=== PATIENT | female | born 1950 | race Caucasian/White ===

== ENCOUNTER 2016-12-03 18:36 | Emergency (ER) | payer MEDICARE ==
[~2016-12-03] VITALS: Ht 160 cm; Wt 81.6 kg
[~2016-12-03 18:36] MED LIST: AMIO200T2 PO; ASPI325T70 PO; CARV12.52 PO; CEPH-264 PO; CEPH500C PO; CLOP75TA PO; DIGO125T PO; DOXY100T PO; ESCITALOPRAM OX10 MG PO; FAMO20TA5 PO; FLUT16SP2 NS; FLUT1DIS5 IH; FURO20TA3 PO; HYDR-2762 PO; HYDR-971 PO; IPRA14.7 IH; IPRA4AER IH; LISI-334 PO; LOSA100T6 PO; METH4TAB6 PO; ONDA4TAB10 SL; ONDA4TAB7 PO; OXYC-323 PO; OXYC-327 PO; POTASSIUM CHLO10 MEQ PO; PROC10TA57 PO; TAMS0.4C97 PO; TIOT18CA IH
[2016-12-03] MEDS ORDERED: IV NORMAL SALINE 1000ML BAG 1,000 ML IV SCH (19:19)
[2016-12-03] MEDS ORDERED: KETOROLAC TROMETHAMINE 30 MG/ML INJ. IV ONE (19:30)
[2016-12-03] MEDS ORDERED: ONDANSETRON PF 4 MG/2 ML VIAL. IV ONE (19:30)
[2016-12-03 19:32] LABS: BILIRUBIN,URINE NEGATIVE (NEG); GLUCOSE,URINE NEGATIVE (NEG); NITRITE,URINE NEGATIVE (NEG); PROTEIN,URINE >=300 mg/dL (NEG-TRACE); UROBILINOGEN,URINE 0.2 mg/dL (0.2 mg/dL)
--- NOTE | 2016-12-03 19:38 | ED.ADGEN ---
Past Medical History Past Medical History: A-Fib, CHF, COPD, CVA, Hypertension, Kidney Stone, Other Additional Past Medical Histor: Emphysema, Cardiomyopathy, PAD Past Surgical History: Appendectomy, Cholecystectomy, Hysterectomy, Tonsillectomy, Tubal ligation Additional Past Surgical Histo: hernia repair, arteriogram, 2 stents in right femoral, lithotripsy Alcohol Use: None Drug Use: None Adult General Chief Complaint Chief Complaint: ABDOMINAL PAIN HPI HPI Patient is a 66 year old woman, history of congestive heart failure, COPD, CVA , hypertension, recurrent renal calculi, who presents to the emergency department with complaint of recurrent right-sided abdominal and flank pain, nausea and persistent vomiting, and pain with urination. Patient had a recent cystoscopy performed with Dr. Manrique, and was treated for a urinary tract infection. She states she completed her course of antibiotics, uncertain which antibiotic she took, has been off antibiotics for more than a week. She presents complaining of nausea, chills, and recurrent pain consistent with her previous episode of renal calculi. She denies any injuries, any chest pain or shortness of breath, any sick contacts or exposures, any travel, any swelling extremities. States she has not taken any medications for pain or for nausea prior to come to the ED. Last bowel movement was today and was normal. Review of Systems Review of Systems Constitutional: Denies fever or chills. [] Eyes: Denies change in visual acuity. [] HENT: Denies nasal congestion or sore throat. [] Respiratory: Denies cough or shortness of breath. [] Cardiovascular: Denies chest pain or edema. [] GI: Right-sided abdominal and flank pain, associated with dysuria and nausea. : Denies dysuria. [] Musculoskeletal: Denies back pain or joint pain. [] Integument: Denies rash. [] Neurologic: Denies headache, focal weakness or sensory changes. [] Endocrine: Denies polyuria or polydipsia. [] Lymphatic: Denies swollen glands. [] Psychiatric: Denies depression or anxiety. [] Current Medications Current Medications Current Medications Medications (Trade) Dose Ordered Sig/Flash Start Time Stop Time Status Last Admin Dose Admin Ceftriaxone Sodium 50 ml @ 100 mls/hr 1X ONCE 12/03/16 20:30 12/03/16 20:59 DC 12/03/16 21:19 100 MLS/HR Fentanyl Citrate (Fentanyl 2ml Vial) 50 mcg PRN Q15MIN PRN 12/03/16 19:30 12/04/16 19:29 12/03/16 20:11 50 MCG Ketorolac Tromethamine (Toradol) 10 mg 1X ONCE 12/03/16 19:30 12/03/16 19:31 DC 12/03/16 20:12 10 MG Ondansetron HCl (Zofran) 4 mg 1X ONCE 12/03/16 19:30 12/03/16 19:31 DC 12/03/16 20:11 4 MG Sodium Chloride 1,000 ml @ 1,000 mls/hr Q1H 12/03/16 19:19 12/03/16 20:18 DC 12/03/16 20:10 1,000 MLS/HR Tamsulosin HCl (Flomax) 0.4 mg 1X ONCE 12/03/16 20:30 12/03/16 20:31 DC 12/03/16 21:19 0.4 MG Allergies Allergies Allergies Coded Allergies Type Severity Reaction Last Updated Verified Sulfa (Sulfonamide Antibiotics) Allergy Severe Anaphylaxis 11/15/15 Yes levofloxacin Adverse Reaction Intermediate Nausea 11/15/15 Yes morphine Adverse Reaction Intermediate 11/15/15 Yes Physical Exam Physical Exam Constitutional: Well developed, well nourished, no acute distress, non-toxic appearance. [] HENT: Normocephalic, atraumatic, bilateral external ears normal, oropharynx moist, no oral exudates, nose normal. [] Eyes: PERRLA, EOMI, conjunctiva normal, no discharge. [] Neck: Normal range of motion, no tenderness, supple, no stridor. [] Cardiovascular:Heart rate regular rhythm, no murmur, S1, S2, rubs or gallops. [] Lungs & Thorax: Bilateral breath sounds clear to auscultation, no wheezing, rhonchi, rales. [] Abdomen: Bowel sounds normal, soft, tenderness palpation in the right flank and right upper and lower abdomen. No rigidity, or rebound. Mild guarding. No masses , no pulsatile masses. [] Skin: Warm, dry, no erythema, no rash. [] Back: No tenderness, no CVA tenderness. [] Extremities: No tenderness, no cyanosis, no clubbing, ROM intact, no edema. [] Neurologic: Alert and oriented X 3, normal motor function, normal sensory function, no focal deficits noted. [] Psychologic: Affect normal, judgement normal, mood normal. [] Current Patient Data Vital Signs Vital Signs Date Time Temp Pulse Resp B/P (MAP) Pulse Ox O2 Delivery O2 Flow Rate FiO2 12/03/16 21:30 82 17 186/89 (121) 94 Room Air 12/03/16 18:53 98.1 98.1 Lab Values Laboratory Tests Test 12/03/16 18:44 12/03/16 20:15 Urine Color Yellow Urine Clarity Cloudy Urine pH 6.0 Urine Specific [place] 1.015 Urine Protein >=300 mg/dL (NEG-TRACE) Urine Glucose (UA) Negative mg/dL (NEG) Urine Ketones (Stick) Negative mg/dL (NEG) Urine Blood Small (NEG) Urine Nitrite Negative (NEG) Urine Bilirubin Negative (NEG) Urine Urobilinogen Dipstick 0.2 mg/dL (0.2 mg/dL) Urine Leukocyte Esterase Small (NEG) Urine RBC 1-2 /HPF (0-2) Urine WBC 1-4 /HPF (0-4) Urine Squamous Epithelial Cells Occ /LPF Urine Amorphous Sediment Present /HPF Urine Bacteria Few /HPF (0-FEW) Urine Mucus Mod /LPF White Blood Count 18.1 x10^3/uL (4.0-11.0) H Red Blood Count 5.99 x10^6/uL (3.50-5.40) H Hemoglobin 15.8 g/dL (12.0-15.5) H Hematocrit 48.7 % (36.0-47.0) H Mean Corpuscular Volume 81 fL (79-100) Mean Corpuscular Hemoglobin 26 pg (25-35) Mean Corpuscular Hemoglobin Concent 32 g/dL (31-37) Red Cell Distribution Width 15.7 % (11.5-14.5) H Platelet Count 275 x10^3/uL (140-400) Neutrophils (%) (Auto) 93 % (31-73) H Lymphocytes (%) (Auto) 4 % (24-48) L Monocytes (%) (Auto) 3 % (0-9) Eosinophils (%) (Auto) 0 % (0-3) Basophils (%) (Auto) 0 % (0-3) Neutrophils # (Auto) 16.8 x10^3uL (1.8-7.7) H Lymphocytes # (Auto) 0.7 x10^3/uL (1.0-4.8) L Monocytes # (Auto) 0.5 x10^3/uL (0.0-1.1) Eosinophils # (Auto) 0.0 x10^3/uL (0.0-0.7) Basophils # (Auto) 0.1 x10^3/uL (0.0-0.2) Segmented Neutrophils % 92 % (35-66) H Lymphocytes % 4 % (24-48) L Monocytes % 4 % (0-10) Toxic Granulation Slight Platelet Estimate Adequate (ADEQUATE) Sodium Level 139 mmol/L (136-145) Potassium Level 4.1 mmol/L (3.5-5.1) Chloride Level 101 mmol/L (98-107) Carbon Dioxide Level 27 mmol/L (21-32) Anion Gap 11 (6-14) Blood Urea Nitrogen 25 mg/dL (7-20) H Creatinine 1.4 mg/dL (0.6-1.0) H Estimated GFR (Cockcroft-Gault) 37.6 BUN/Creatinine Ratio 18 (6-20) Glucose Level 154 mg/dL (70-99) H Calcium Level 9.8 mg/dL (8.5-10.1) Total Bilirubin 0.5 mg/dL (0.2-1.0) Aspartate Amino Transferase (AST) 17 U/L (15-37) Alanine Aminotransferase (ALT) 23 U/L (14-59) Alkaline Phosphatase 157 U/L (46-116) H Total Protein 8.4 g/dL (6.4-8.2) H Albumin 3.6 g/dL (3.4-5.0) Albumin/Globulin Ratio 0.8 (1.0-1.7) L Lipase 136 U/L (73-393) Laboratory Tests 12/03/16 20:15 Laboratory Tests 12/03/16 20:15 Radiology/Procedures Radiology/Procedures [][facility] [address] [place] [address] IMAGING REPORT Signed PATIENT: NASIM APPIAH ACCOUNT: [id number] : 1950 LOCATION: ER AGE: 66 SEX: F EXAM STATUS: REG ER ORD. PHYSICIAN: HECTOR ACOSTA DO REASON: L flank/abd pain/urinary pain PROCEDURE: CT ABDOMEN PELVIS WO CONTRAST CT ABDOMEN PELVIS WO CONTRAST dated 12/03/2016 7:42 PM Indication: Pain, left flank pain dysuria, urinary pain Comparison: 11/17/2016 Technique: Contiguous axial imaging of the abdomen and pelvis performed without the administration of intravenous contrast. One or more of the following individualized dose reduction techniques were utilized for this examination: 1. Automated exposure control 2. Adjustment of the mA and/or kV according to patient size 3. Use of iterative reconstruction technique Findings: Again noted is a large stone or group of stones at the mid to distal right ureter that measure up to 12 mm maximum dimension. There is moderate to severe right hydronephrosis and proximal hydroureter, unchanged. Inflammatory stranding in the perinephric fat and periureteral fat. 3 calcific stones at the mid to lower pole right kidney measuring up to 5 mm maximum dimension previously noted large mid pole calculus on the right is no longer visualized and likely migrated to the mid/distal right ureter. Calcific stones at the mid and lower pole left kidney with small staghorn calculus at the lower pole measuring 1.7 cm in size, unchanged. No left ureteral stone or left-sided hydronephrosis. Urinary bladder is nondistended. No calcified bladder stone. There are several phleboliths in the pelvis. Solid abdominal viscera are not well evaluated in the absence of contrast material. No apparent attenuation abnormality of the liver or spleen. Pancreas, adrenal glands unremarkable. Unopacified GI tract is normal in caliber and contour. No focal bowel wall thickening. Scattered diverticula throughout the colon. No pericolic inflammatory stranding. There are 3 low-density exophytic lesions at the lower pole right kidney ranging from 24 Hounsfield units to 47 Hounsfield units. These are similar to prior study. There are also exophytic nodules at the lower pole left kidney and upper to mid pole left kidney, unchanged. Limited images of the lung bases are clear. Heart size mildly enlarged. No pleural or pericardial effusion. Bone windows show no acute findings. Multilevel spondylosis. IMPRESSION: 1. New 1.2 cm calcific stone at the mid to distal right ureter with moderate obstructive uropathy. This appears to have migrated from the right kidney mid pole compared to the prior exam. The calculus is lodged in a similar position compared to the prior study. 2. Bilateral nephrolithiasis. No left ureteral stone or left hydronephrosis. 3. Exophytic nodules at both kidneys are indeterminate in etiology but stable from prior exam. Considerations would include hyperdense cysts or neoplasm. Continued follow-up imaging recommended to ensure stability. 4. Diverticulosis. Electronically signed by: Que Ramey MD (12/03/2016 8:10 PM) DICTATED and SIGNED BY: QUE RAMEY MD DATE: 12/03/161999 CC: HECTOR ACOSTA DO; DARRICK ZHOU MD ~ Course & Med Decision Making Course & Med Decision Making Pertinent Labs and Imaging studies reviewed. (See chart for details) Repeat CT of abdomen and pelvis obtained after discussion with patient bedside, reveals recurrent, new 1.2 cm renal calculi located in the mid right ureter, causing moderate obstructive uropathy, patient also noted to have a creatinine at 1.4, elevated from previous 0.9 on 23 November, evidence of dehydration with a blood urea nitrogen of 25, leukocytosis of 18.1, with bacteria noted in the patient's urine. Nitrate negative. Patient initiated on ceftriaxone in the ED, previous urine cultures did not display any significant growth. Is receiving IV fluids, antiemetics, pain medication, is resting more comfortably on reevaluation. Oral Flomax given and tolerated without issue. I discussed findings with patient and at bedside, as we currently do not have urology coverage at [facility], patient is agreeable for transfer to [facility], as her primary care provider Dr. Zhou has admitting privileges at this hospital. I did speak to Dr. Zhou, and he accepted the patient to his service at [facility]. I also spoke with Dr. Crockett of urology at [facility], who stated he'll be able to evaluate the patient and continue management at [facility]. Patient has received antibiotics, and has fluids and analgesia with antiemetics infusing as needed. Transfer paperwork completed. Patient's CT images were clouded to [facility]. Awaiting EMS transport, patient remained stable on the monitor. Dragon Disclaimer Dragon Disclaimer This electronic medical record was generated, in whole or in part, using a voice recognition dictation system. Departure Impression: Primary Impression: Hydronephrosis Additional Impressions: UTI (urinary tract infection) Stone, kidney Disposition: 05 TRANSFER OTHER Condition: IMPROVED Problem Qualifiers HECTOR ACOSTA DO Dec 03, 2016 19:38
[2016-12-03 19:43] LABS: BACTERIA,URINE FEW /HPF (0-FEW); SQUAMOUS EPITHELIAL CELL,UR OCC /LPF
[2016-12-03] MEDS: fentaNYL PF VIAL 100 MCG/2 ML VIAL IV PRN ×2 (20:11→21:55)
--- NOTE | 2016-12-03 20:13 | RAD ---
CT ABDOMEN PELVIS WO CONTRAST dated 12/03/2016 7:42 PM Indication: Pain, left flank pain dysuria, urinary pain Comparison: 11/17/2016 Technique: Contiguous axial imaging of the abdomen and pelvis performed without the administration of intravenous contrast. One or more of the following individualized dose reduction techniques were utilized for this examination: 1. Automated exposure control 2. Adjustment of the mA and/or kV according to patient size 3. Use of iterative reconstruction technique Findings: Again noted is a large stone or group of stones at the mid to distal right ureter that measure up to 12 mm maximum dimension. There is moderate to severe right hydronephrosis and proximal hydroureter, unchanged. Inflammatory stranding in the perinephric fat and periureteral fat. 3 calcific stones at the mid to lower pole right kidney measuring up to 5 mm maximum dimension previously noted large mid pole calculus on the right is no longer visualized and likely migrated to the mid/distal right ureter. Calcific stones at the mid and lower pole left kidney with small staghorn calculus at the lower pole measuring 1.7 cm in size, unchanged. No left ureteral stone or left-sided hydronephrosis. Urinary bladder is nondistended. No calcified bladder stone. There are several phleboliths in the pelvis. Solid abdominal viscera are not well evaluated in the absence of contrast material. No apparent attenuation abnormality of the liver or spleen. Pancreas, adrenal glands unremarkable. Unopacified GI tract is normal in caliber and contour. No focal bowel wall thickening. Scattered diverticula throughout the colon. No pericolic inflammatory stranding. There are 3 low-density exophytic lesions at the lower pole right kidney ranging from 24 Hounsfield units to 47 Hounsfield units. These are similar to prior study. There are also exophytic nodules at the lower pole left kidney and upper to mid pole left kidney, unchanged. Limited images of the lung bases are clear. Heart size mildly enlarged. No pleural or pericardial effusion. Bone windows show no acute findings. Multilevel spondylosis. IMPRESSION: 1. New 1.2 cm calcific stone at the mid to distal right ureter with moderate obstructive uropathy. This appears to have migrated from the right kidney mid pole compared to the prior exam. The calculus is lodged in a similar position compared to the prior study. 2. Bilateral nephrolithiasis. No left ureteral stone or left hydronephrosis. 3. Exophytic nodules at both kidneys are indeterminate in etiology but stable from prior exam. Considerations would include hyperdense cysts or neoplasm. Continued follow-up imaging recommended to ensure stability. 4. Diverticulosis. Electronically signed by: Que Ramey MD (12/03/2016 8:10 PM)
[2016-12-03 20:22] LABS: BASO # 0.1 x10^3/uL (0.0-0.2); BASO % 0 % (0-3); EOS % 0 % (0-3); HEMATOCRIT 48.7 % (36.0-47.0); HEMOGLOBIN 15.8 g/dL (12.0-15.5); LYMPH # 0.7 x10^3/uL (1.0-4.8); LYMPH % 4 % (24-48); MEAN CORPUSCULAR HEMOGLOBIN 26 pg (25-35); MEAN CORPUSCULAR HGB CONC 32 g/dL (31-37); MEAN CORPUSCULAR VOLUME 81 fL (79-100); MONO % 3 % (0-9); NEUT % 93 % (31-73); PLATELET COUNT 275 x10^3/uL (140-400); RED BLOOD COUNT 5.99 x10^6/uL (3.50-5.40); RED CELL DISTRIBUTION WIDTH 15.7 % (11.5-14.5); WHITE BLOOD COUNT 18.1 x10^3/uL (4.0-11.0)
[2016-12-03] MEDS ORDERED: TAMSULOSIN 0.4 MG CAP.ER.24H. PO ONE (20:30)
[2016-12-03 20:38] LABS: CALCIUM 9.8 mg/dL (8.5-10.1); CREATININE 1.4 mg/dL (0.6-1.0); GFR 37.6; POTASSIUM 4.1 mmol/L (3.5-5.1)
[2016-12-03 20:44] LABS: ALBUMIN 3.6 g/dL (3.4-5.0); ALBUMIN/GLOBULIN RATIO 0.8 (1.0-1.7); TOTAL BILIRUBIN 0.5 mg/dL (0.2-1.0); TOTAL PROTEIN 8.4 g/dL (6.4-8.2)
[2016-12-03 20:54] LABS: PLT ESTIMATE ADEQUATE (ADEQUATE); TOXIC GRANULATION SLIGHT
--- NOTE | 2016-12-03 20:58 | ACF ---
Admission Forms Criteria RENAL COLIC AND KIDNEY STONES Clinical Indications for Admission to Inpatient Care ( Place 'X' for any and all applicable criteria): Admission is indicated for ANY ONE of the following (1)(2)(3)(4): [X ]I. Inpatient admission required rather than observation care (Also use Renal Colic and Kidney Stones: Observation Care Criteria as appropriate) because of ANY ONE of the following: [ X]a) Severe pain requiring acute inpatient management [ ]b) Urinary tract infection identified [ ]c) Vomiting that is severe or persistent [ ]d) IV fluid required rather than oral rehydration to replace significant ongoing (eg, for greater than 24 hours) losses (greater than 200 mL/hr or 3 L/m2 per day) [ ]e) Percutaneous or open drainage (eg, abscess, biliary tract) procedures [ ]f) Other condition, treatment or monitoring requiring inpatient admission [ ]II. Impending acute renal failure [ ]III. Bilateral obstruction [ ]IV. Single kidney with obstruction [ ]V. Transplanted kidney with obstruction [ ]. Possible open surgical procedure needed (eg, pyonephrosis, stone removal not amendable to other means) [ ]VII. Hemodynamic instability Extended stay beyond goal length of stay may be needed for(2)(3)(31): [ ]a) Failed initial stone removal (32) [ ]b) Pyonephrosis [ ]c) Obstructive uropathy with urinary tract infection [ ]d) Procedure complications [ ]e) Comorbidities (22) The original [employer] content created by [employer] has been revised. The portions of the content which have been revised are identified through the use of italic text or in bold, and [facility] has neither reviewed nor approved the modified material. All other unmodified content is copyright [employer]. Please see references footnoted in the original [facility] edition 2016 CAIT WAN Dec 03, 2016 20:58
[2016-12-03 23:30] VITALS: BP 170/85
== END 2016-12-03 23:50 | disposition short-term general hospital (02) ==
LOC: ER 18:36
DX: N20.0 Calculus of kidney (principal); N13.30 Unspecified hydronephrosis; N39.0 Urinary tract infection, site not specified; I48.91 Unspecified atrial fibrillation; I11.0 Hypertensive heart disease with heart failure; I50.9 Heart failure, unspecified; J44.9 Chronic obstructive pulmonary disease, unspecified; Z86.73 Personal history of transient ischemic attack (TIA), and cerebral infarction without residual deficits; Z90.49 Acquired absence of other specified parts of digestive tract; Z90.710 Acquired absence of both cervix and uterus; Z98.51 Tubal ligation status; Z88.2 Allergy status to sulfonamides; Z88.5 Allergy status to narcotic agent; Z88.1 Allergy status to other antibiotic agents
CPT/HCPCS: 36415; 74176; 80053; 81001; 83690; 85007; 85027; 87086; 96361; 96365; 96375; 96376; 99285; J0690; J1885; J2405; J3010; J7030

== ENCOUNTER 2017-05-15 12:05 | Emergency (ER) | payer MEDICARE ==
[~2017-05-15] VITALS: Ht 160 cm; Wt 72.6 kg
[2017-05-15] MEDS ORDERED: IV NORMAL SALINE 1000ML BAG 1,000 ML IV SCH (12:59)
--- NOTE | 2017-05-15 13:31 | PHYS DOC ---
Past Medical History Past Medical History: A-Fib, CHF, COPD, CVA, Hypertension, Kidney Stone, Other Additional Past Medical Histor: Emphysema, Cardiomyopathy, PAD Past Surgical History: Appendectomy, Cholecystectomy, Hysterectomy, Tonsillectomy, Tubal ligation Additional Past Surgical Histo: hernia repair, arteriogram, 2 stents in right femoral, lithotripsy Alcohol Use: None Drug Use: None Adult General Chief Complaint Chief Complaint: ABDOMINAL PAIN HPI HPI Patient is a 66 year old female who presents with was he vomiting a right lower quadrant pain. All started last night. She also complains about headache in the frontal aspect of her head with tenderness over her maxillary and frontal sinuses. She denies any neck pain, denies any fevers or chills. She states she's had a hysterectomy and a appendectomy in the past. Review of Systems Review of Systems Constitutional: Denies fever or chills [] Eyes: Denies change in visual acuity, redness, or eye pain [] HENT: Denies nasal congestion or sore throat [] Respiratory: Denies cough or shortness of breath [] Cardiovascular: No additional information not addressed in HPI [] GI: Positive for abdominal pain, nausea,Denies vomiting, bloody stools or diarrhea [] : Denies dysuria or hematuria [] Musculoskeletal: Denies back pain or joint pain [] Integument: Denies rash or skin lesions [] Neurologic: Denies headache, focal weakness or sensory changes [] Endocrine: Denies polyuria or polydipsia [] All other systems were reviewed and found to be within normal limits, except as documented in this note. Current Medications Current Medications Current Medications Medications (Trade) Dose Ordered Sig/Flash Start Time Stop Time Status Last Admin Dose Admin Fentanyl Citrate (Fentanyl 2ml Vial) 50 mcg PRN Q15MIN PRN 05/15/17 13:45 05/16/17 13:44 05/15/17 14:15 50 MCG Ondansetron HCl (Zofran) 4 mg STK-MED ONCE 05/15/17 14:10 05/15/17 14:11 DC Sodium Chloride 1,000 ml @ 1,000 mls/hr 1X ONCE 05/15/17 16:30 05/15/17 17:29 Tamsulosin HCl (Flomax) 0.4 mg 1X ONCE 05/15/17 16:30 05/15/17 16:41 DC Allergies Allergies Allergies Coded Allergies Type Severity Reaction Last Updated Verified Sulfa (Sulfonamide Antibiotics) Allergy Severe Anaphylaxis 11/15/15 Yes levofloxacin Adverse Reaction Intermediate Nausea 11/15/15 Yes morphine Adverse Reaction Intermediate 11/15/15 Yes Physical Exam Physical Exam Constitutional: Well developed, well nourished, no acute distress, non-toxic appearance. [] HENT: Normocephalic, atraumatic, bilateral external ears normal, oropharynx moist, no oral exudates, nose normal. [] Eyes: PERRLA, EOMI, conjunctiva normal, no discharge. [] Neck: Normal range of motion, no tenderness, supple, no stridor. [] Cardiovascular:Heart rate regular rhythm, no murmur [] Lungs & Thorax: Bilateral breath sounds clear to auscultation [] Abdomen: Bowel sounds hypoactive, soft, tender to palpation the right lower quadrant no rebound or guarding, no masses, no pulsatile masses. [] Skin: Warm, dry, no erythema, no rash. [] Back: No tenderness, no CVA tenderness. [] Extremities: No tenderness, no cyanosis, no clubbing, ROM intact, no edema. [] Neurologic: Alert and oriented X 3, normal motor function, normal sensory function, no focal deficits noted. [] Psychologic: Affect normal, judgement normal, mood normal. [] Current Patient Data Vital Signs Vital Signs Date Time Temp Pulse Resp B/P (MAP) Pulse Ox O2 Delivery O2 Flow Rate FiO2 05/15/17 15:06 20 94 Room Air 05/15/17 12:44 98.3 93 168/91 (116) 98.3 Lab Values Laboratory Tests Test 05/15/17 12:20 05/15/17 13:55 Urine Collection Type Unknown Urine Color Yellow Urine Clarity Cloudy Urine pH 6.0 Urine Specific [place] 1.015 Urine Protein 100 mg/dL (NEG-TRACE) Urine Glucose (UA) Negative mg/dL (NEG) Urine Ketones (Stick) Negative mg/dL (NEG) Urine Blood Large (NEG) Urine Nitrite Negative (NEG) Urine Bilirubin Negative (NEG) Urine Urobilinogen Dipstick 0.2 mg/dL (0.2 mg/dL) Urine Leukocyte Esterase Small (NEG) Urine RBC >40 /HPF (0-2) Urine WBC 5-10 /HPF (0-4) Urine Squamous Epithelial Cells Many /LPF Urine Bacteria Moderate /HPF (0-FEW) Urine Hyaline Casts Few /HPF Urine Mucus Marked /LPF Urine Opiates Screen Neg (NEG) Urine Methadone Screen Neg (NEG) Urine Barbiturates Neg (NEG) Urine Phencyclidine Screen Neg (NEG) Urine Amphetamine/Methamphetamine Neg (NEG) Urine Benzodiazepines Screen Neg (NEG) Urine Cocaine Screen Neg (NEG) Urine Cannabinoids Screen Neg (NEG) Urine Ethyl Alcohol Neg (NEG) White Blood Count 15.4 x10^3/uL (4.0-11.0) H Red Blood Count 6.30 x10^6/uL (3.50-5.40) H Hemoglobin 16.5 g/dL (12.0-15.5) H Hematocrit 50.7 % (36.0-47.0) H Mean Corpuscular Volume 81 fL (79-100) Mean Corpuscular Hemoglobin 26 pg (25-35) Mean Corpuscular Hemoglobin Concent 33 g/dL (31-37) Red Cell Distribution Width 16.4 % (11.5-14.5) H Platelet Count 246 x10^3/uL (140-400) Neutrophils (%) (Auto) 82 % (31-73) H Lymphocytes (%) (Auto) 11 % (24-48) L Monocytes (%) (Auto) 7 % (0-9) Eosinophils (%) (Auto) 0 % (0-3) Basophils (%) (Auto) 1 % (0-3) Neutrophils # (Auto) 12.6 x10^3uL (1.8-7.7) H Lymphocytes # (Auto) 1.7 x10^3/uL (1.0-4.8) Monocytes # (Auto) 1.0 x10^3/uL (0.0-1.1) Eosinophils # (Auto) 0.0 x10^3/uL (0.0-0.7) Basophils # (Auto) 0.1 x10^3/uL (0.0-0.2) Segmented Neutrophils % 81 % (35-66) H Band Neutrophils % 3 % (0-9) Lymphocytes % 4 % (24-48) L Atypical Lymphocytes % (Manual) 5 % (0-0) H Monocytes % 5 % (0-10) Eosinophils % 1 % (0-5) Basophils % 1 % (0-3) Platelet Estimate Adequate (ADEQUATE) Giant Platelets Few Anisocytosis Slight Prothrombin Time 12.4 SEC (11.7-14.0) Prothrombin Time INR 1.0 (0.8-1.1) Sodium Level 139 mmol/L (136-145) Potassium Level 4.4 mmol/L (3.5-5.1) Chloride Level 101 mmol/L (98-107) Carbon Dioxide Level 30 mmol/L (21-32) Anion Gap 8 (6-14) Blood Urea Nitrogen 27 mg/dL (7-20) H Creatinine 1.6 mg/dL (0.6-1.0) H Estimated GFR (Cockcroft-Gault) 32.2 Glucose Level 109 mg/dL (70-99) H Calcium Level 9.8 mg/dL (8.5-10.1) Magnesium Level 2.1 mg/dL (1.8-2.4) Total Bilirubin 0.6 mg/dL (0.2-1.0) Direct Bilirubin 0.1 mg/dL (0.0-0.2) Aspartate Amino Transferase (AST) 21 U/L (15-37) Alanine Aminotransferase (ALT) 22 U/L (14-59) Alkaline Phosphatase 131 U/L (46-116) H Creatine Kinase 36 U/L (26-192) Creatine Kinase MB (Mass) 0.9 ng/mL (0.0-3.6) Creatine Kinase MB Relative Index % (0-4) Troponin I Quantitative 0.037 ng/mL (0.000-0.055) PY-Mnp-I-Type Natriuretic Peptide 47571 pg/mL (0-124) H Total Protein 8.0 g/dL (6.4-8.2) Albumin 3.8 g/dL (3.4-5.0) Lipase 87 U/L (73-393) Thyroid Stimulating Hormone (TSH) 0.284 uIU/mL (0.358-3.74) L Laboratory Tests 05/15/17 13:55 Laboratory Tests 05/15/17 13:55 EKG EKG [] Radiology/Procedures Radiology/Procedures CT scan shows: #1 bilateral intrarenal calculi #26 mm obstructing calculus in the distal right ureter #3 bilateral renal masses most compatible with cysts #4 unchanged small bilateral adrenal masses compatible with myelolipomas. #5 colonic diverticulosis Impressions: Right sided ureter stone Elevated creatinine COPD Congestive heart failure Hypertension History of a CVA A. fib Course & Med Decision Making Course & Med Decision Making Pertinent Labs and Imaging studies reviewed. (See chart for details) CT scans confirm the 6 mm obstructing stone in the distal right ureter. She is receiving IV pain meds to control her pain. Her creatinine is elevated at 1.6 were baselines 0.9. She received a liter fluids. Her second liters going to 125 an hour. She received 0.4 mg Flomax is being transferred to [facility] in stable condition at this time. Dr. Guzman has accepted her for admission with her hospitalist team. Dragon Disclaimer Dragon Disclaimer This electronic medical record was generated, in whole or in part, using a voice recognition dictation system. Departure Departure Impression: Primary Impression: Nephrolithiasis Disposition: 02 TRANSFER [facility] LICENSE OF [facility] Condition: STABLE Referrals: DARRICK PINTO MD (PCP) SUZANNE AYALA MD May 15, 2017 13:31
[2017-05-15 13:34] LABS: BARBITURATES NEG (NEG); BENZODIAZEPINES NEG (NEG); CANNABINOIDS NEG (NEG); COCAINE NEG (NEG); METHADONE NEG (NEG); OPIATES NEG (NEG); PHENCYCLIDINE NEG (NEG)
[2017-05-15] MEDS ORDERED: ONDANSETRON PF 4 MG/2 ML VIAL. ONE (14:10)
[2017-05-15] MEDS: fentaNYL PF VIAL 100 MCG/2 ML VIAL IV PRN ×2 (14:15→17:03)
[2017-05-15] MEDS ORDERED: ONDANSETRON PF 4 MG/2 ML VIAL. IV ONE (14:15)
[2017-05-15 14:16] LABS: BASO # 0.1 x10^3/uL (0.0-0.2); BASO % 1 % (0-3); EOS % 0 % (0-3); HEMATOCRIT 50.7 % (36.0-47.0); HEMOGLOBIN 16.5 g/dL (12.0-15.5); LYMPH # 1.7 x10^3/uL (1.0-4.8); LYMPH % 11 % (24-48); MEAN CORPUSCULAR HEMOGLOBIN 26 pg (25-35); MEAN CORPUSCULAR HGB CONC 33 g/dL (31-37); MEAN CORPUSCULAR VOLUME 81 fL (79-100); MONO % 7 % (0-9); NEUT % 82 % (31-73); PLATELET COUNT 246 x10^3/uL (140-400); RED CELL DISTRIBUTION WIDTH 16.4 % (11.5-14.5); WHITE BLOOD COUNT 15.4 x10^3/uL (4.0-11.0)
[2017-05-15 14:19] LABS: CALCIUM 9.8 mg/dL (8.5-10.1); CREATININE 1.6 mg/dL (0.6-1.0); GFR 32.2; POTASSIUM 4.4 mmol/L (3.5-5.1)
[2017-05-15 14:20] LABS: PROTHROMBIN TIME PATIENT 12.4 SEC (11.7-14.0)
[2017-05-15 14:25] LABS: ALBUMIN 3.8 g/dL (3.4-5.0); DIRECT BILIRUBIN 0.1 mg/dL (0.0-0.2); MAGNESIUM 2.1 mg/dL (1.8-2.4); TOTAL BILIRUBIN 0.6 mg/dL (0.2-1.0)
[2017-05-15 14:35] LABS: CKMB MASS 0.9 ng/mL (0.0-3.6); CREATINE KINASE 36 U/L (26-192)
[2017-05-15 15:24] LABS: % BASOS 1 % (0-3); % EOS 1 % (0-5); ANISOCYTOSIS SLIGHT; PLT ESTIMATE ADEQUATE (ADEQUATE)
--- NOTE | 2017-05-15 15:46 | EKG ---
[facility] [address] [place] [address] Test Date: 2017-05-15 Test Time: 13:58:46 Pat Name: NASIM APPIAH Department: Room: Gender: F Desktop Specialist: : [id number] Requested By: SUZANNE AYALA Order Number: [id number] Reading MD: Juancho Velasco Measurements Intervals [place] Rate: 89 P: 4 VT: 192 QRS: -39 QRSD: 110 T: 106 QT: 386 QTc: 471 Interpretive Statements SINUS RHYTHM ATRIAL PREMATURE COMPLEX(ES) ABNORMAL LEFT AXIS DEVIATION LEFT ANTERIOR FASCICULAR BLOCK ST & T ABNORMALITY, CONSIDER HIGH LATERAL ISCHEMIA OR LEFT VENTRICULAR STRAIN ABNORMAL ECG Electronically Signed On 05-20-2017 16:44:45 COLORED LEATHER SETTER by Juancho Velasco
[2017-05-15 15:47] LABS: BILIRUBIN,URINE NEGATIVE (NEG); GLUCOSE,URINE NEGATIVE (NEG); NITRITE,URINE NEGATIVE (NEG); PROTEIN,URINE 100 mg/dL (NEG-TRACE); UROBILINOGEN,URINE 0.2 mg/dL (0.2 mg/dL)
--- NOTE | 2017-05-15 15:48 | RAD ---
CT of the abdomen and pelvis without contrast, 05/15/2017: History: Abdominal pain and vomiting Noncontrast scans were obtained as requested. There are multiple bilateral intrarenal calculi. There are several bilateral renal cysts. The left renal collecting system and left ureter are not dilated. There is dilatation of the right renal collecting system and right ureter. This appears to be due to a 6 mm distal right ureteral calculus as seen on coronal image 37 of series #4 and axial image 74 series #2. This calculus was not present on the previous study of 12/03/2016. At that time there was a larger calculus present more superiorly in the right ureter. There is mild streaky right perinephric edema. The urinary bladder bladder is collapsed and poorly defined. The unopacified liver is unremarkable. The gallbladder appears to be surgically absent. No pancreatic abnormality is seen. The spleen is of normal size. There are unchanged small nodules in both adrenal glands demonstrating fatty components. The findings suggest adrenal myelolipomas. Moderate aortoiliac calcific plaquing is present without evidence of aneurysm. No abdominal or pelvic adenopathy is seen. The uterus is surgically absent. There are multiple colonic diverticula. No paracolonic inflammatory process is seen. The appendix is surgically absent. The bowel loops are not dilated. No free air or free fluid is evident in the abdomen or pelvis. IMPRESSION: 1. Bilateral intrarenal calculi. 2. 6 mm obstructing calculus in the distal right ureter. 3. Bilateral renal masses most compatible with cysts. 4. Unchanged small bilateral adrenal masses compatible with myelolipomas. 5. Colonic diverticulosis. PQRS Compliance Statement: One or more of the following individualized dose reduction techniques were utilized for this examination: 1. Automated exposure control 2. Adjustment of the mA and/or kV according to patient size 3. Use of iterative reconstruction technique
[2017-05-15 15:58] LABS: BACTERIA,URINE MODERATE /HPF (0-FEW); RBC,URINE >40 /HPF (0-2)
[2017-05-15 15:59] LABS: SQUAMOUS EPITHELIAL CELL,UR MANY /LPF
[2017-05-15] MEDS ORDERED: TAMSULOSIN 0.4 MG CAP.ER.24H. PO ONE (16:30)
[2017-05-15] MEDS ORDERED: IV NORMAL SALINE 1000ML BAG 1,000 ML IV ONE (16:30)
[2017-05-15 17:00] VITALS: BP 159/79
== END 2017-05-15 18:13 | disposition short-term general hospital (02) ==
LOC: ER 12:05
DX: N20.2 Calculus of kidney with calculus of ureter (principal); R51 Headache; I48.91 Unspecified atrial fibrillation; I11.0 Hypertensive heart disease with heart failure; I50.9 Heart failure, unspecified; J43.9 Emphysema, unspecified; Z90.710 Acquired absence of both cervix and uterus; Z88.2 Allergy status to sulfonamides; Z86.73 Personal history of transient ischemic attack (TIA), and cerebral infarction without residual deficits; Z90.49 Acquired absence of other specified parts of digestive tract; Z87.442 Personal history of urinary calculi; Z88.1 Allergy status to other antibiotic agents; Z88.5 Allergy status to narcotic agent
CPT/HCPCS: 36415; 74176; 80048; 80076; 80307; 81001; 82553; 83690; 83735; 83880; 84443; 84484; 85007; 85025; 85610; 87086; 93005; 96361; 96374; 96375; 96376; 99285; J2405; J3010; J7030; G0479

== ENCOUNTER → 2017-11-19 | Outpatient (CLI) | payer MEDICARE, OTHER | END | disposition home or self-care (01) | LOC: PNCL 10:16 | DX: M79.661 Pain in right lower leg (principal); I10 Essential (primary) hypertension; I42.9 Cardiomyopathy, unspecified; I69.351 Hemiplegia and hemiparesis following cerebral infarction affecting right dominant side | CPT/HCPCS: G0463 ==

== ENCOUNTER 2017-11-28 12:12 | Emergency (ER) | payer MEDICARE ==
[2017-11-28 14:05] LABS: BILIRUBIN,URINE NEGATIVE (NEG); CLARITY,URINE CLEAR; COLOR,URINE YELLOW; GLUCOSE,URINE NEGATIVE (NEG); NITRITE,URINE NEGATIVE (NEG); PH,URINE 6.5; PROTEIN,URINE 30 mg/dL (NEG-TRACE)
[2017-11-28] MEDS: fentaNYL PF VIAL 100 MCG/2 ML VIAL IV (14:21)
[2017-11-28] MEDS: IV NORMAL SALINE 1000ML BAG 1,000 ML IV (14:21)
[2017-11-28 14:25] LABS: BACTERIA,URINE MODERATE /HPF (0-FEW); RBC,URINE 0 /HPF (0-2); SQUAMOUS EPITHELIAL CELL,UR MANY /LPF
[2017-11-28 14:45] LABS: ADD MAN DIFF? NO
[2017-11-28 14:56] LABS: BASO % 0 % (0-3); EOS # 0.1 x10^3/uL (0.0-0.7); EOS % 1 % (0-3); HEMATOCRIT 45.1 % (36.0-47.0); HEMOGLOBIN 14.9 g/dL (12.0-15.5); LYMPH # 1.5 x10^3/uL (1.0-4.8); LYMPH % 14 % (24-48); MEAN CORPUSCULAR HEMOGLOBIN 27 pg (25-35); MEAN CORPUSCULAR HGB CONC 33 g/dL (31-37); MEAN CORPUSCULAR VOLUME 80 fL (79-100); MONO # 0.7 x10^3/uL (0.0-1.1); MONO % 6 % (0-9); NEUT # 8.4 x10^3uL (1.8-7.7); NEUT % 79 % (31-73); PLATELET COUNT 222 x10^3/uL (140-400); RED BLOOD COUNT 5.63 x10^6/uL (3.50-5.40); RED CELL DISTRIBUTION WIDTH 17.1 % (11.5-14.5); WHITE BLOOD COUNT 10.7 x10^3/uL (4.0-11.0)
[2017-11-28] MEDS: CLINDAMYCIN 900MG PREMIX 50 ML IV (15:00)
[2017-11-28 15:04] LABS: ANION GAP 9 (6-14); BLOOD UREA NITROGEN 17 mg/dL (7-20); BUN/CREATININE RATIO 17 (6-20); CALCIUM 9.1 mg/dL (8.5-10.1); CARBON DIOXIDE 28 mmol/L (21-32); CHLORIDE 105 mmol/L (98-107); GFR 55.3; GLUCOSE 104 mg/dL (70-99); POTASSIUM 3.6 mmol/L (3.5-5.1); SODIUM 142 mmol/L (136-145)
[2017-11-28 15:10] LABS: ALBUMIN 3.3 g/dL (3.4-5.0); ALBUMIN/GLOBULIN RATIO 0.8 (1.0-1.7); ALK PHOS 115 U/L (46-116); ALT (SGPT) 20 U/L (14-59); AST (SGOT) 19 U/L (15-37); TOTAL BILIRUBIN 0.6 mg/dL (0.2-1.0); TOTAL PROTEIN 7.3 g/dL (6.4-8.2)
== END 2017-11-28 16:28 | disposition home or self-care (01) ==
LOC: ER 16:28
DX: K04.7 Periapical abscess without sinus (principal); K02.9 Dental caries, unspecified; I11.0 Hypertensive heart disease with heart failure; I50.9 Heart failure, unspecified; J44.9 Chronic obstructive pulmonary disease, unspecified; I48.91 Unspecified atrial fibrillation; Z87.442 Personal history of urinary calculi; Z90.49 Acquired absence of other specified parts of digestive tract; Z98.51 Tubal ligation status; Z90.710 Acquired absence of both cervix and uterus; Z88.1 Allergy status to other antibiotic agents; Z88.2 Allergy status to sulfonamides; Z88.5 Allergy status to narcotic agent
CPT/HCPCS: 36415; 70486; 80053; 81001; 85025; 87086; 96374; 96375; 99285-25; J3010; J3490; J7030

== ENCOUNTER 2018-01-27 17:04 | Emergency (ER) | payer MEDICARE, OTHER ==
[~2018-01-27] VITALS: Ht 160 cm; Wt 81.6 kg
[~2018-01-27 17:04] MED LIST changes: -AMIO200T2 PO; +AMIO200T4 PO; +CLIN150C14 PO; +HYDR-2758 PO; +POTA10TA12 PO; -POTASSIUM CHLO10 MEQ PO
[2018-01-27 17:35] VITALS: BP 229/110
[2018-01-27] MEDS ORDERED: HYDROcodone/APAP 10/325 1 TAB TABLET PO ONE (18:00)
--- NOTE | 2018-01-27 18:23 | PHYS DOC ---
Past Medical History Past Medical History: A-Fib, CHF, COPD, CVA, Hypertension, Kidney Stone, Other Additional Past Medical Histor: Emphysema, Cardiomyopathy, PAD Past Surgical History: Appendectomy, Cholecystectomy, Hysterectomy, Tonsillectomy, Tubal ligation Additional Past Surgical Histo: hernia repair, arteriogram, 2 stents in right femoral, lithotripsy Alcohol Use: None Drug Use: None Adult General Chief Complaint Chief Complaint: KNEE INJURY HPI HPI Patient is a 67 year old F who presents with right knee pain. reports patient has been crying d/t pain. She reports she had a major fall about 1 month ago. She reports the knee has been painful since the fall, progressively worsening. She does not have pain meds at home. No relief with otc meds. Review of Systems Review of Systems Constitutional: Denies fever or chills [] Respiratory: Denies cough or shortness of breath [] Cardiovascular: No additional information not addressed in HPI [] Musculoskeletal: right knee pain Integument: Denies rash or skin lesions [] Neurologic: Denies focal weakness or sensory changes [] All other systems were reviewed and found to be within normal limits, except as documented in this note. Current Medications Current Medications Current Medications Medications (Trade) Dose Ordered Sig/Flash Start Time Stop Time Status Last Admin Dose Admin Acetaminophen/ Hydrocodone Bitart (Lortab 10/325) 1 tab 1X ONCE 01/27/18 18:00 01/27/18 18:01 DC 01/27/18 18:02 1 TAB Fentanyl Citrate (Fentanyl 2ml Vial) 100 mcg 1X ONCE 01/27/18 19:45 01/27/18 19:46 DC 01/27/18 19:51 100 MCG Allergies Allergies Allergies Coded Allergies Type Severity Reaction Last Updated Verified Sulfa (Sulfonamide Antibiotics) Allergy Severe Anaphylaxis 11/15/15 Yes levofloxacin Adverse Reaction Intermediate Nausea 11/15/15 Yes morphine Adverse Reaction Intermediate 11/15/15 Yes Physical Exam Physical Exam Constitutional: Well developed, well nourished, no acute distress, non-toxic appearance. [] HENT: Normocephalic, atraumatic Eyes: PERRLA, EOMI, conjunctiva normal, no discharge. [] Neck: Normal range of motion, no tenderness, supple, no stridor. [] Skin: Warm, dry, no erythema, no rash. [] Extremities: Right knee tenderness anterior and posterior, pain with movement, distal sensation intact Neurologic: Alert and oriented X 3, normal motor function, normal sensory function, no focal deficits noted. [] Psychologic: Affect normal, judgement normal, mood normal. [] Current Patient Data Vital Signs Vital Signs Date Time Temp Pulse Resp B/P (MAP) Pulse Ox O2 Delivery O2 Flow Rate FiO2 01/27/18 19:51 20 Room Air 98.0 01/27/18 18:02 96 01/27/18 17:35 98.6 73 229/110 (149) 98.6 EKG EKG [] Radiology/Procedures Radiology/Procedures XR knee--No acute findings[] Course & Med Decision Making Course & Med Decision Making Pertinent Labs and Imaging studies reviewed. (See chart for details) Offered a ultrasound of the right lower extremity to rule out DVT and Wolfe's cyst declines. Patient and family requesting admission. Discussed with Dr. Zhou who does not feel admission is warranted at this time. Plan: Lortab Rx, follow-up with orthopedics, return precautions reviewed Maria E Disclaimer Maria E Disclaimer This electronic medical record was generated, in whole or in part, using a voice recognition dictation system. Departure Departure Impression: Primary Impression: Knee pain, acute Disposition: 01 HOME, SELF-CARE Condition: GOOD Referrals: DARRICK ZHOU MD (PCP) MONIKA THURSTON MD Patient Instructions: Knee Pain Scripts Oxycodone Hcl (OXYCODONE HCL) 5 Mg Capsule 1 CAP PO QID, #20 CAP Prov: WARREN BUTCHER LINE O SCRIBE OPERATOR 01/27/18 Problem Qualifiers Primary Impression: Knee pain, acute Laterality: right Qualified Codes: M25.561 - Pain in right knee WARREN BUTCHER LINE O SCRIBE OPERATOR Jan 27, 2018 18:23
[2018-01-27] MEDS ORDERED: OXYC5CAP PO (19:18)
[2018-01-27] MEDS ORDERED: fentaNYL PF VIAL 100 MCG/2 ML VIAL IM ONE (19:45)
--- NOTE | 2018-01-28 08:07 | RAD ---
EXAM: 3 views right knee DATE: 01/27/2018 5:34 PM INDICATION: right knee pain, fall 1 month ago, progressively worsening COMPARISON: No Prior FINDINGS: No evidence of acute fracture or dislocation. Moderate medial compartment right knee joint space narrowing with small associated osteophytes. Small right knee joint effusion. Decreased bone mineral density. Chondrocalcinosis lateral compartment. IMPRESSION: 1. No evidence of acute fracture or dislocation. 2. Right knee joint osteoarthritis with medial joint space narrowing 3. Small right knee joint effusion 4. Lateral compartment chondrocalcinosis. Electronically signed by: German Bernstein MD (01/28/2018 8:03 AM) [facility]
== END 2018-01-27 20:40 | disposition home or self-care (01) ==
LOC: ER 17:04
DX: M25.561 Pain in right knee (principal); I48.91 Unspecified atrial fibrillation; I11.0 Hypertensive heart disease with heart failure; I50.9 Heart failure, unspecified; J43.9 Emphysema, unspecified; Z95.5 Presence of coronary angioplasty implant and graft; Z88.1 Allergy status to other antibiotic agents; Z88.2 Allergy status to sulfonamides; Z88.5 Allergy status to narcotic agent
CPT/HCPCS: 73562; 96372; 99284; J3010

== ENCOUNTER 2018-02-01 11:58 | Inpatient (IN) | payer OTHER ==
[~2018-02-01] VITALS: Ht 160 cm; Wt 92.3 kg
[~2018-02-01 11:58] MED LIST changes: +OXYC5CAP PO
--- NOTE | 2018-02-01 12:51 | PHYS DOC ---
Past Medical History Past Medical History: A-Fib, CHF, COPD, CVA, Hypertension, Kidney Stone, Other Additional Past Medical Histor: Emphysema, Cardiomyopathy, PAD Past Surgical History: Appendectomy, Cholecystectomy, Hysterectomy, Tonsillectomy, Tubal ligation Additional Past Surgical Histo: hernia repair, arteriogram, 2 stents in right femoral, lithotripsy Alcohol Use: None Drug Use: None Adult General Chief Complaint Chief Complaint: NAUSEA/VOMITING/DIARRHA HPI HPI Patient is a 67 year old female with a history of CHF, CVA, CAD presents the ED complaining of diffuse lower abdominal pain 2 days. Describes the pain as sharp. Rates the pain as 7 out of 10. Associated symptoms include vomiting. Patient states she has vomited twice. Nonbloody, nonbilious. Patient has not had any medications at home. Denies chest pain, shortness of breath, dysuria, hematuria, vaginal discharge/bleeding, diarrhea, headache, fever or dizziness. Review of Systems Review of Systems Constitutional: Denies fever or chills [] Eyes: Denies change in visual acuity, redness, or eye pain [] HENT: Denies nasal congestion or sore throat [] Respiratory: Denies cough or shortness of breath [] Cardiovascular: No additional information not addressed in HPI [] GI: Complains of abdominal pain, nausea/vomiting. No diarrhea, bloody stools. : Denies dysuria or hematuria [] Musculoskeletal: Denies back pain or joint pain [] Integument: Denies rash or skin lesions [] Neurologic: Denies headache, focal weakness or sensory changes [] Endocrine: Denies polyuria or polydipsia [] All other systems were reviewed and found to be within normal limits, except as documented in this note. Current Medications Current Medications Current Medications Medications (Trade) Dose Ordered Sig/Flash Start Time Stop Time Status Last Admin Dose Admin Acetaminophen (Tylenol) 650 mg PRN Q4HRS PRN 02/01/18 14:45 02/02/18 14:44 Fentanyl Citrate (Fentanyl 2ml Vial) 50 mcg PRN Q1HR PRN 02/01/18 14:45 02/02/18 14:44 Info (CONTRAST GIVEN -- Rx MONITORING) 1 each PRN DAILY PRN 02/01/18 13:45 02/03/18 13:44 Iohexol (Omnipaque 300 Mg/ml) 60 ml 1X ONCE 02/01/18 14:00 02/01/18 14:01 DC 02/01/18 13:56 60 ML Ondansetron HCl (Zofran) 4 mg PRN Q8HRS PRN 02/01/18 14:45 02/02/18 14:44 02/01/18 20:42 4 MG Allergies Allergies Allergies Coded Allergies Type Severity Reaction Last Updated Verified Sulfa (Sulfonamide Antibiotics) Allergy Severe Anaphylaxis 11/15/15 Yes levofloxacin Adverse Reaction Intermediate Nausea 11/15/15 Yes morphine Adverse Reaction Intermediate 11/15/15 Yes Physical Exam Physical Exam Constitutional: Well developed, well nourished, no acute distress, non-toxic appearance. [] HENT: Normocephalic, atraumatic Neck: Normal range of motion, no tenderness, supple, no stridor. [] Cardiovascular:Heart rate regular rhythm, no murmur [] Lungs & Thorax: Bilateral breath sounds clear to auscultation [] Abdomen: Bowel sounds normal, soft, mild diffuse lower abdominal tenderness, no masses, no pulsatile masses. [] Skin: Warm, dry, no erythema, no rash. [] Back: No tenderness, no CVA tenderness. [] Extremities: No tenderness, no cyanosis, no clubbing, ROM intact, no edema. [] Neurologic: Alert and oriented X 3, normal motor function per her normal, normal sensory function per her normal Psychologic: Affect normal, judgement normal, mood normal. [] Current Patient Data Vital Signs Vital Signs Date Time Temp Pulse Resp B/P (MAP) Pulse Ox O2 Delivery O2 Flow Rate FiO2 02/01/18 12:26 97.7 69 20 229/110 (149) 95 Room Air 97.7 Lab Values Laboratory Tests Test 02/01/18 13:00 White Blood Count 9.6 x10^3/uL (4.0-11.0) Red Blood Count 5.38 x10^6/uL (3.50-5.40) Hemoglobin 14.6 g/dL (12.0-15.5) Hematocrit 43.7 % (36.0-47.0) Mean Corpuscular Volume 81 fL (79-100) Mean Corpuscular Hemoglobin 27 pg (25-35) Mean Corpuscular Hemoglobin Concent 34 g/dL (31-37) Red Cell Distribution Width 17.0 % (11.5-14.5) H Platelet Count 246 x10^3/uL (140-400) Neutrophils (%) (Auto) 77 % (31-73) H Lymphocytes (%) (Auto) 12 % (24-48) L Monocytes (%) (Auto) 6 % (0-9) Eosinophils (%) (Auto) 4 % (0-3) H Basophils (%) (Auto) 1 % (0-3) Neutrophils # (Auto) 7.4 x10^3uL (1.8-7.7) Lymphocytes # (Auto) 1.2 x10^3/uL (1.0-4.8) Monocytes # (Auto) 0.6 x10^3/uL (0.0-1.1) Eosinophils # (Auto) 0.3 x10^3/uL (0.0-0.7) Basophils # (Auto) 0.1 x10^3/uL (0.0-0.2) Sodium Level 139 mmol/L (136-145) Potassium Level 3.3 mmol/L (3.5-5.1) L Chloride Level 104 mmol/L (98-107) Carbon Dioxide Level 25 mmol/L (21-32) Anion Gap 10 (6-14) Blood Urea Nitrogen 17 mg/dL (7-20) Creatinine 1.1 mg/dL (0.6-1.0) H Estimated GFR (Cockcroft-Gault) 49.5 BUN/Creatinine Ratio 15 (6-20) Glucose Level 130 mg/dL (70-99) H Calcium Level 9.3 mg/dL (8.5-10.1) Total Bilirubin 0.5 mg/dL (0.2-1.0) Aspartate Amino Transferase (AST) 14 U/L (15-37) L Alanine Aminotransferase (ALT) 11 U/L (14-59) L Alkaline Phosphatase 121 U/L (46-116) H Total Protein 7.8 g/dL (6.4-8.2) Albumin 3.4 g/dL (3.4-5.0) Albumin/Globulin Ratio 0.8 (1.0-1.7) L Lipase 119 U/L (73-393) Laboratory Tests 02/01/18 13:00 Laboratory Tests 02/01/18 13:00 EKG EKG [] Radiology/Procedures Radiology/Procedures PROCEDURE: CT ABD PELV W/ IV CONTRST ONLY PQRS Compliance statement: One or more of the following individualized dose reduction techniques were utilized for this examination: 1. Automated exposure control. 2. Adjustment of the mA and/or kV according to patient size. 3. Use of iterative reconstruction technique. Indication:LOWER ABD PAIN TECHNIQUE: CT abdomen and pelvis with IV contrast with multiplanar reformats. COMPARISON: 05/15/2017 FINDINGS: Heart is normal in size. No pericardial or pleural effusion. Multifocal patchy opacities are seen in the lung bases. Liver, spleen, pancreas are within normal limits. Status post cholecystectomy. Fat-containing lesions are seen in the bilateral adrenal glands compatible with myelolipoma. No enlarged retroperitoneal or pelvic adenopathy. Multiple bilateral low attenuating lesions are seen in the kidneys, the largest on the right measuring 3 cm and on the left measuring 2.8 cm compatible with simple cysts. Nonobstructing multiple renal stones are seen in the bilateral kidneys. No hydronephrosis. The largest on the right measures 1.6 cm and on the left measures 1.5 cm. No free pelvic fluid or ascites. Diffuse descending colon and sigmoid diverticulosis. There is mild pericolonic inflammatory changes in the proximal sigmoid colon. Small intraluminal lipoma is seen in the mid transverse colon measuring approximately 3.2 cm. No bowel obstruction. Urinary bladder is within normal limits. Status post hysterectomy. No suspicious bony lesion. IMPRESSION: 1. Bilateral nonobstructing renal stones. 2. Sigmoid and descending colon diverticulosis with mild diverticulitis at the junction of the descending colon and sigmoid colon. 3. Stable submucosal lipoma in the mid transverse colon predisposing patient to intussusception. Correlate with colonoscopy. 4. Multifocal patchy opacities in the bilateral lower lobes concerning for aspiration or multifocal pneumonia. Correlate with symptoms.[] Course & Med Decision Making Course & Med Decision Making Pertinent Labs and Imaging studies reviewed. (See chart for details) []Discussed case with patient and family at bedside. Will admit for diverticulitis and possible pneumonia treatment. Zosyn ordered. Discussed case with patient's PCP, Dr. Zhou. Agrees to admission and further management patient. Patient stable for admission. GI consult placed. Staff Physician Addendum: I was working in the ER during the course of this patient's visit. I was available for consultation as needed, but I was not directly involved in the care of this patient. Ronn Samson DO Staff Physician Maria E Disclaimer Dragon Disclaimer This electronic medical record was generated, in whole or in part, using a voice recognition dictation system. Departure Departure Impression: Primary Impression: Diverticulitis Additional Impression: Pneumonia Disposition: 09 ADMITTED INPATIENT Admitting Physician: Randell Zhou Condition: STABLE Referrals: RANDELL ZHOU MD (PCP) Problem Qualifiers FELIPA WHITAKER Feb 01, 2018 12:51 RONN SAMSON DO Feb 02, 2018 06:30
[2018-02-01 13:07] LABS: BASO # 0.1 x10^3/uL (0.0-0.2); BASO % 1 % (0-3); EOS # 0.3 x10^3/uL (0.0-0.7); EOS % 4 % (0-3); HEMATOCRIT 43.7 % (36.0-47.0); HEMOGLOBIN 14.6 g/dL (12.0-15.5); LYMPH # 1.2 x10^3/uL (1.0-4.8); LYMPH % 12 % (24-48); MEAN CORPUSCULAR HEMOGLOBIN 27 pg (25-35); MEAN CORPUSCULAR HGB CONC 34 g/dL (31-37); MEAN CORPUSCULAR VOLUME 81 fL (79-100); MONO # 0.6 x10^3/uL (0.0-1.1); MONO % 6 % (0-9); NEUT # 7.4 x10^3uL (1.8-7.7); NEUT % 77 % (31-73); PLATELET COUNT 246 x10^3/uL (140-400); RED BLOOD COUNT 5.38 x10^6/uL (3.50-5.40); WHITE BLOOD COUNT 9.6 x10^3/uL (4.0-11.0)
[2018-02-01 13:15] LABS: CALCIUM 9.3 mg/dL (8.5-10.1); CREATININE 1.1 mg/dL (0.6-1.0); GFR 49.5; POTASSIUM 3.3 mmol/L (3.5-5.1)
[2018-02-01 13:22] LABS: ALBUMIN 3.4 g/dL (3.4-5.0); ALBUMIN/GLOBULIN RATIO 0.8 (1.0-1.7); TOTAL BILIRUBIN 0.5 mg/dL (0.2-1.0); TOTAL PROTEIN 7.8 g/dL (6.4-8.2)
[2018-02-01] MEDS ORDERED: ONDANSETRON PF 4 MG/2 ML VIAL. IV ONE (13:30)
[2018-02-01] MEDS ORDERED: fentaNYL PF VIAL 100 MCG/2 ML VIAL IV ONE (13:30)
[2018-02-01] MEDS ORDERED: CONTRAST GIVEN. MC PRN (13:45)
[2018-02-01] MEDS ORDERED: IOHEXOL 300 MG/ML 100ML VIAL. IV ONE (14:00)
--- NOTE | 2018-02-01 14:30 | RAD ---
PQRS Compliance statement: One or more of the following individualized dose reduction techniques were utilized for this examination: 1. Automated exposure control. 2. Adjustment of the mA and/or kV according to patient size. 3. Use of iterative reconstruction technique. Indication:LOWER ABD PAIN TECHNIQUE: CT abdomen and pelvis with IV contrast with multiplanar reformats. COMPARISON: 05/15/2017 FINDINGS: Heart is normal in size. No pericardial or pleural effusion. Multifocal patchy opacities are seen in the lung bases. Liver, spleen, pancreas are within normal limits. Status post cholecystectomy. Fat-containing lesions are seen in the bilateral adrenal glands compatible with myelolipoma. No enlarged retroperitoneal or pelvic adenopathy. Multiple bilateral low attenuating lesions are seen in the kidneys, the largest on the right measuring 3 cm and on the left measuring 2.8 cm compatible with simple cysts. Nonobstructing multiple renal stones are seen in the bilateral kidneys. No hydronephrosis. The largest on the right measures 1.6 cm and on the left measures 1.5 cm. No free pelvic fluid or ascites. Diffuse descending colon and sigmoid diverticulosis. There is mild pericolonic inflammatory changes in the proximal sigmoid colon. Small intraluminal lipoma is seen in the mid transverse colon measuring approximately 3.2 cm. No bowel obstruction. Urinary bladder is within normal limits. Status post hysterectomy. No suspicious bony lesion. IMPRESSION: 1. Bilateral nonobstructing renal stones. 2. Sigmoid and descending colon diverticulosis with mild diverticulitis at the junction of the descending colon and sigmoid colon. 3. Stable submucosal lipoma in the mid transverse colon predisposing patient to intussusception. Correlate with colonoscopy. 4. Multifocal patchy opacities in the bilateral lower lobes concerning for aspiration or multifocal pneumonia. Correlate with symptoms. Electronically signed by: Arya Henry DO (02/01/2018 2:26 PM) [facility]
[2018-02-01] MEDS ORDERED: ONDANSETRON PF 4 MG/2 ML VIAL. IV PRN (14:45)
[2018-02-01] MEDS ORDERED: fentaNYL PF VIAL 100 MCG/2 ML VIAL IV PRN (14:45)
[2018-02-01] MEDS ORDERED: ACETAMINOPHEN 325 MG TABLET. PO PRN (14:45)
[2018-02-01] MEDS ORDERED: PIPERACILLIN/TAZOBACTAM 3.375 GM in IV NORMAL SALINE 50ML 50 ML IV ONE (15:00)
[2018-02-01] MEDS ORDERED: POTASSIUM CHLORIDE 20 MEQ TABLET.ER. PO ONE (15:00)
--- NOTE | 2018-02-01 15:03 | RAD ---
Indication:CHEST PAIN TECHNIQUE:Portable AP chest X-ray COMPARISON:None FINDINGS: Heart is moderately enlarged in size. Diffuse bilateral interstitial opacities are seen. No pneumothorax or pleural effusion. Visualized bony thorax within normal limits. IMPRESSION: Diffuse bilateral interstitial opacities may be secondary to interstitial pulmonary edema or atypical/viral infection. Electronically signed by: Arya Henry DO (02/01/2018 2:59 PM) [facility]
[2018-02-01 16:43] VITALS: BP 188/107
[2018-02-01] MEDS ORDERED: CARV12.52 PO (19:25)
[2018-02-01] MEDS ORDERED: OXYC5CAP PO (19:25)
[2018-02-01] MEDS ORDERED: CLOP75TA PO (19:25)
[2018-02-01] MEDS ORDERED: LOSA100T6 PO (19:25)
[2018-02-01] MEDS ORDERED: AMIO200T4 PO (19:25)
[2018-02-01] MEDS ORDERED: GABA100C6 PO (19:25)
[2018-02-01] MEDS ORDERED: HYDR-2762 PO (19:25)
[2018-02-01] MEDS ORDERED: SIMV20TA3 PO (19:25)
[2018-02-01 19:46] VITALS: BP 149/78
[2018-02-01] MEDS: GABAPENTIN 100 MG CAPSULE. PO SCH (20:43)
[2018-02-01] MEDS: CARVEDILOL 12.5 MG TABLET. PO SCH (20:43)
[2018-02-01] MEDS: SIMVASTATIN 20 MG TABLET PO SCH (20:43)
[2018-02-01 23:27] VITALS: BP 184/94
[2018-02-02 03:43] VITALS: BP 114/55
[2018-02-02 05:38] LABS: BASO % 0 % (0-3); EOS # 0.3 x10^3/uL (0.0-0.7); EOS % 3 % (0-3); HEMATOCRIT 39.4 % (36.0-47.0); HEMOGLOBIN 12.9 g/dL (12.0-15.5); LYMPH # 1.6 x10^3/uL (1.0-4.8); LYMPH % 15 % (24-48); MEAN CORPUSCULAR HEMOGLOBIN 27 pg (25-35); MEAN CORPUSCULAR HGB CONC 33 g/dL (31-37); MEAN CORPUSCULAR VOLUME 82 fL (79-100); MONO # 0.7 x10^3/uL (0.0-1.1); MONO % 6 % (0-9); NEUT # 8.4 x10^3uL (1.8-7.7); NEUT % 76 % (31-73); PLATELET COUNT 242 x10^3/uL (140-400); RED BLOOD COUNT 4.81 x10^6/uL (3.50-5.40); RED CELL DISTRIBUTION WIDTH 17.1 % (11.5-14.5)
[2018-02-02 05:54] LABS: ALBUMIN/GLOBULIN RATIO 0.8 (1.0-1.7); CALCIUM 9.1 mg/dL (8.5-10.1); CREATININE 1.2 mg/dL (0.6-1.0); GFR 44.8; POTASSIUM 3.7 mmol/L (3.5-5.1); TOTAL BILIRUBIN 0.5 mg/dL (0.2-1.0); TOTAL PROTEIN 6.9 g/dL (6.4-8.2)
[2018-02-02 06:55] VITALS: BP 127/60
[2018-02-02] MEDS: CARVEDILOL 12.5 MG TABLET. PO SCH ×2 (08:00→16:24)
[2018-02-02] MEDS: GABAPENTIN 100 MG CAPSULE. PO SCH ×3 (08:54→20:24)
[2018-02-02] MEDS: AMIODARONE HCL 200 MG TABLET. PO SCH (08:54)
[2018-02-02] MEDS: CLOPIDOGREL BISULFATE 75 MG TABLET PO SCH (08:54)
[2018-02-02] MEDS: LOSARTAN POTASSIUM 50 MG TABLET. PO SCH (08:55)
[2018-02-02 10:42] VITALS: BP 119/64
--- NOTE | 2018-02-02 12:29 | PDOC1 ---
History and Physical Date of Admission Date of Admission DATE: 02/02/18 TIME: :19 Identification/Chief Complaint Chief Complaint Abdominal pain History of Present Illness History of Present Illness This patient is a 67-year-old lady with a long cardiac history that has atrial fibrillation, coronary artery disease, a cardiomyopathy, CHF and severe COPD. The patient had a CVA about 2 years ago that has left her with a hemiparesis and dysarthria. She was in the emergency room a couple of days ago because of severe knee pain and is supposed to be going to see the orthopedic physicians to evaluate her knee. Yesterday she started developing severe abdominal pain along with nausea and the pain was mostly over the lower abdomen and the left side. She also had some diarrhea and fever and has been having a cough for several days. The patient came in to the emergency room where she was seen and evaluated and it was decided to admit her for further care. The CT of the abdomen shows diverticulosis and possible diverticulitis and her chest x-ray shows a possible lower lobe pneumonia. This patient since her CVA is not very active and would be at high risk for aspiration pneumonia. At the time that I saw her she denies having any chest pains or palpitations. Past Medical History Cardiovascular: AFIB, CAD, CHF, HTN, [place], Other Pulmonary: Bronchitis, COPD, Previously Intubated, Pneumonia CENTRAL NERVOUS SYSTEM: CVA, TIA, Vertigo GI: GERD Musculoskeletal: low back pain, Osteoarthritis, Swelling, Stiffness Renal/: Other Past Surgical History Past Surgical History: Cholecystectomy, Hernia Repair, Hysterectomy, Other Family History Family History: Adopted Social History ALCOHOL: none Drugs: None, Ecstasy Current Problem List Problem List Problems Medical Problems: (1) Diverticulitis Status: Acute (2) Pneumonia Status: Acute Current Medications Current Medications Current Medications Fentanyl Citrate (Fentanyl 2ml Vial) 75 mcg 1X ONCE IV Last administered on at 12:59; Start 02/01/18 at 13:30; Stop 02/01/18 at 13:31; Status DC Ondansetron HCl (Zofran) 4 mg 1X ONCE IV Last administered on 02/01/18at 12:58 ; Start 02/01/18 at 13:30; Stop 02/01/18 at 13:31; Status DC Iohexol (Omnipaque 300 Mg/ml) 60 ml 1X ONCE IV Last administered on 02/01/18 13:56; Start 02/01/18 at 14:00; Stop 02/01/18 at 14:01; Status DC Info (CONTRAST GIVEN -- Rx MONITORING) 1 each PRN DAILY PRN MC SEE COMMENTS; Start 02/01/18 at 13:45; Stop 02/03/18 at 13:44 Potassium Chloride (Klor-Con) 40 meq 1X ONCE PO Last administered on 14:58; Start 02/01/18 at 15:00; Stop 02/01/18 at 15:01; Status DC Piperacillin Sod/ Tazobactam Sod 3.375 gm/Sodium Chloride 50 ml @ 100 mls/hr 1X ONCE IV Last administered on 02/01/18 14:58; Start 02/01/18 at 15:00; Stop 02/01/18 at 15:29; Status DC Ondansetron HCl (Zofran) 4 mg PRN Q8HRS PRN IV NAUSEA/VOMITING Last administered on 02/01/18at 20:42; Start 02/01/18 at 14:45; Stop 02/02/18 at 14:44 Fentanyl Citrate (Fentanyl 2ml Vial) 50 mcg PRN Q1HR PRN IV PAIN Last administered on 02/02/18at 11:15; Start 02/01/18 at 14:45; Stop 02/02/18 at 14:44 Acetaminophen (Tylenol) 650 mg PRN Q4HRS PRN PO FEVER; Start 02/01/18 at 14:45 ; Stop 02/02/18 at 14:44 Amiodarone HCl (Cordarone) 200 mg DAILY PO Last administered on 02/02/18at 08:54 ; Start 02/02/18 at 09:00 Carvedilol (Coreg) 12.5 mg BIDWMEALS PO Last administered on 02/01/18 20:43; Start 02/01/18 at 21:00 Clopidogrel Bisulfate (Plavix) 75 mg DAILY PO Last administered on 02/02/18at 08 :54; Start 02/02/18 at 09:00 Gabapentin (Neurontin) 100 mg TID PO Last administered on 02/02/18 08:54; Start 02/01/18 at 21:00 Losartan Potassium (Cozaar) 100 mg DAILY PO Last administered on 8/19/18at 08: 55; Start 02/02/18 at 09:00 Simvastatin (Zocor) 20 mg HS PO Last administered on 02/01/18at 20:43; Start at 21:00 Active Scripts Active Reported Hydrocodone-Apap 7.5-325 (Hydrocodone Bit/Acetaminophen) 1 Each Tablet 1 Tab PO PRN Q6HRS PRN Gabapentin 100 Mg Capsule 1 Cap PO TID Clopidogrel (Clopidogrel Bisulfate) 75 Mg Tablet 1 Tab PO DAILY Carvedilol 12.5 Mg Tablet 1 Tab PO BID Simvastatin 20 Mg Tablet 1 Tab PO DAILY Losartan Potassium 100 Mg Tablet 1 Tab PO DAILY Amiodarone Hcl 200 Mg Tablet 1 Tab PO DAILY Oxycodone Hcl 5 Mg Capsule 5 Mg PO PRN Q6HRS PRN Allergies Allergies: Coded Allergies: Sulfa (Sulfonamide Antibiotics) (Verified Allergy, Severe, Anaphylaxis, ) levofloxacin (Verified Adverse Reaction, Intermediate, Nausea, 11/15/15) morphine (Verified Adverse Reaction, Intermediate, 11/15/15) Physical Exam General: Alert, Oriented X3, Cooperative, mild distress HEENT: PERRLA Lungs: Clear to auscultation Heart: S1S2, irregularly irregular Abdomen: Other (bowel sounds present, soft, lower abdominal and periumbilical tenderness) Rectal Exam: deferred Extremities: Other (tenderness over left knee with restricted range of motion patient unable to bear weight on that leg.) Vitals Vitals Vital Signs Date Time Temp Pulse Resp B/P (MAP) Pulse Ox O2 Delivery O2 Flow Rate FiO2 02/02/18 10:42 98.1 66 18 119/64 (82) 92 Room Air 98.1 Labs Labs Laboratory Tests Test 02/01/18 13:00 02/01/18 15:20 02/02/18 03:55 White Blood Count 9.6 x10^3/uL (4.0-11.0) 11.0 x10^3/uL (4.0-11.0) Red Blood Count 5.38 x10^6/uL (3.50-5.40) 4.81 x10^6/uL (3.50-5.40) Hemoglobin 14.6 g/dL (12.0-15.5) 12.9 g/dL (12.0-15.5) Hematocrit 43.7 % (36.0-47.0) 39.4 % (36.0-47.0) Mean Corpuscular Volume 81 fL (79-100) 82 fL (79-100) Mean Corpuscular Hemoglobin 27 pg (25-35) 27 pg (25-35) Mean Corpuscular Hemoglobin Concent 34 g/dL (31-37) 33 g/dL (31-37) Red Cell Distribution Width 17.0 % (11.5-14.5) 17.1 % (11.5-14.5) Platelet Count 246 x10^3/uL (140-400) 242 x10^3/uL (140-400) Neutrophils (%) (Auto) 77 % (31-73) 76 % (31-73) Lymphocytes (%) (Auto) 12 % (24-48) 15 % (24-48) Monocytes (%) (Auto) 6 % (0-9) 6 % (0-9) Eosinophils (%) (Auto) 4 % (0-3) 3 % (0-3) Basophils (%) (Auto) 1 % (0-3) 0 % (0-3) Neutrophils # (Auto) 7.4 x10^3uL (1.8-7.7) 8.4 x10^3uL (1.8-7.7) Lymphocytes # (Auto) 1.2 x10^3/uL (1.0-4.8) 1.6 x10^3/uL (1.0-4.8) Monocytes # (Auto) 0.6 x10^3/uL (0.0-1.1) 0.7 x10^3/uL (0.0-1.1) Eosinophils # (Auto) 0.3 x10^3/uL (0.0-0.7) 0.3 x10^3/uL (0.0-0.7) Basophils # (Auto) 0.1 x10^3/uL (0.0-0.2) 0.0 x10^3/uL (0.0-0.2) Sodium Level 139 mmol/L (136-145) 143 mmol/L (136-145) Potassium Level 3.3 mmol/L (3.5-5.1) 3.7 mmol/L (3.5-5.1) Chloride Level 104 mmol/L (98-107) 106 mmol/L (98-107) Carbon Dioxide Level 25 mmol/L (21-32) 28 mmol/L (21-32) Anion Gap 10 (6-14) 9 (6-14) Blood Urea Nitrogen 17 mg/dL (7-20) 19 mg/dL (7-20) Creatinine 1.1 mg/dL (0.6-1.0) 1.2 mg/dL (0.6-1.0) Estimated GFR (Cockcroft-Gault) 49.5 44.8 BUN/Creatinine Ratio 15 (6-20) 16 (6-20) Glucose Level 130 mg/dL (70-99) 101 mg/dL (70-99) Calcium Level 9.3 mg/dL (8.5-10.1) 9.1 mg/dL (8.5-10.1) Total Bilirubin 0.5 mg/dL (0.2-1.0) 0.5 mg/dL (0.2-1.0) Aspartate Amino Transf (AST/SGOT) 14 U/L (15-37) 11 U/L (15-37) Alanine Aminotransferase (ALT/SGPT) 11 U/L (14-59) 15 U/L (14-59) Alkaline Phosphatase 121 U/L (46-116) 102 U/L (46-116) Total Protein 7.8 g/dL (6.4-8.2) 6.9 g/dL (6.4-8.2) Albumin 3.4 g/dL (3.4-5.0) 3.0 g/dL (3.4-5.0) Albumin/Globulin Ratio 0.8 (1.0-1.7) 0.8 (1.0-1.7) Lipase 119 U/L (73-393) Lactic Acid Level 0.6 mmol/L (0.4-2.0) Laboratory Tests Test 02/01/18 13:00 02/01/18 15:20 02/02/18 03:55 White Blood Count 9.6 x10^3/uL (4.0-11.0) 11.0 x10^3/uL (4.0-11.0) Red Blood Count 5.38 x10^6/uL (3.50-5.40) 4.81 x10^6/uL (3.50-5.40) Hemoglobin 14.6 g/dL (12.0-15.5) 12.9 g/dL (12.0-15.5) Hematocrit 43.7 % (36.0-47.0) 39.4 % (36.0-47.0) Mean Corpuscular Volume 81 fL (79-100) 82 fL (79-100) Mean Corpuscular Hemoglobin 27 pg (25-35) 27 pg (25-35) Mean Corpuscular Hemoglobin Concent 34 g/dL (31-37) 33 g/dL (31-37) Red Cell Distribution Width 17.0 % (11.5-14.5) 17.1 % (11.5-14.5) Platelet Count 246 x10^3/uL (140-400) 242 x10^3/uL (140-400) Neutrophils (%) (Auto) 77 % (31-73) 76 % (31-73) Lymphocytes (%) (Auto) 12 % (24-48) 15 % (24-48) Monocytes (%) (Auto) 6 % (0-9) 6 % (0-9) Eosinophils (%) (Auto) 4 % (0-3) 3 % (0-3) Basophils (%) (Auto) 1 % (0-3) 0 % (0-3) Neutrophils # (Auto) 7.4 x10^3uL (1.8-7.7) 8.4 x10^3uL (1.8-7.7) Lymphocytes # (Auto) 1.2 x10^3/uL (1.0-4.8) 1.6 x10^3/uL (1.0-4.8) Monocytes # (Auto) 0.6 x10^3/uL (0.0-1.1) 0.7 x10^3/uL (0.0-1.1) Eosinophils # (Auto) 0.3 x10^3/uL (0.0-0.7) 0.3 x10^3/uL (0.0-0.7) Basophils # (Auto) 0.1 x10^3/uL (0.0-0.2) 0.0 x10^3/uL (0.0-0.2) Sodium Level 139 mmol/L (136-145) 143 mmol/L (136-145) Potassium Level 3.3 mmol/L (3.5-5.1) 3.7 mmol/L (3.5-5.1) Chloride Level 104 mmol/L (98-107) 106 mmol/L (98-107) Carbon Dioxide Level 25 mmol/L (21-32) 28 mmol/L (21-32) Anion Gap 10 (6-14) 9 (6-14) Blood Urea Nitrogen 17 mg/dL (7-20) 19 mg/dL (7-20) Creatinine 1.1 mg/dL (0.6-1.0) 1.2 mg/dL (0.6-1.0) Estimated GFR (Cockcroft-Gault) 49.5 44.8 BUN/Creatinine Ratio 15 (6-20) 16 (6-20) Glucose Level 130 mg/dL (70-99) 101 mg/dL (70-99) Calcium Level 9.3 mg/dL (8.5-10.1) 9.1 mg/dL (8.5-10.1) Total Bilirubin 0.5 mg/dL (0.2-1.0) 0.5 mg/dL (0.2-1.0) Aspartate Amino Transf (AST/SGOT) 14 U/L (15-37) 11 U/L (15-37) Alanine Aminotransferase (ALT/SGPT) 11 U/L (14-59) 15 U/L (14-59) Alkaline Phosphatase 121 U/L (46-116) 102 U/L (46-116) Total Protein 7.8 g/dL (6.4-8.2) 6.9 g/dL (6.4-8.2) Albumin 3.4 g/dL (3.4-5.0) 3.0 g/dL (3.4-5.0) Albumin/Globulin Ratio 0.8 (1.0-1.7) 0.8 (1.0-1.7) Lipase 119 U/L (73-393) Lactic Acid Level 0.6 mmol/L (0.4-2.0) VTE Prophylaxis Ordered VTE Prophylaxis Devices: No VTE Pharmacological Prophylaxi: Yes Assessment/Plan Assessment/Plan This patient post CVA comes in with abdominal pain as well has severe knee pain. She appears to be having a diverticulitis and arthritis of the knee. She also has chronic atrial fibrillation as well as COPD and severe peripheral vascular disease. She is at risk for possible aspiration since her stroke in at this time I would like to consult GI and Ortho. Will start the patient on antibiotics. Resume her home meds. DARRICK PINTO MD Feb 02, 2018 12:29
--- NOTE | 2018-02-02 15:09 | PDOC2 ---
CONSULT Date of Consult Date of Consult DATE: 02/02/18 TIME: 15:06 Reason for Consult Reason for Consult: LLQ abd pain/diverticulitis Past Medical History Cardiovascular: AFIB, CAD, CHF, HTN, [place], Other Pulmonary: Bronchitis, COPD, Previously Intubated, Pneumonia CENTRAL NERVOUS SYSTEM: CVA, TIA, Vertigo GI: GERD Musculoskeletal: low back pain, Osteoarthritis, Swelling, Stiffness Renal/: Other Past Surgical History Past Surgical History: Cholecystectomy, Hernia Repair, Hysterectomy, Other Family History Family History: Adopted Social History ALCOHOL: none Drugs: None, Ecstasy Current Problem List Problem List Problems Medical Problems: (1) Diverticulitis Status: Acute (2) Pneumonia Status: Acute Current Medications Current Medications Current Medications Fentanyl Citrate (Fentanyl 2ml Vial) 75 mcg 1X ONCE IV Last administered on at 12:59; Start 02/01/18 at 13:30; Stop 02/01/18 at 13:31; Status DC Ondansetron HCl (Zofran) 4 mg 1X ONCE IV Last administered on 02/01/18at 12:58 ; Start 02/01/18 at 13:30; Stop 02/01/18 at 13:31; Status DC Iohexol (Omnipaque 300 Mg/ml) 60 ml 1X ONCE IV Last administered on 02/01/18at 13:56; Start 02/01/18 at 14:00; Stop 02/01/18 at 14:01; Status DC Info (CONTRAST GIVEN -- Rx MONITORING) 1 each PRN DAILY PRN MC SEE COMMENTS; Start 02/01/18 at 13:45; Stop 02/03/18 at 13:44 Potassium Chloride (Klor-Con) 40 meq 1X ONCE PO Last administered on at 14:58; Start 02/01/18 at 15:00; Stop 02/01/18 at 15:01; Status DC Piperacillin Sod/ Tazobactam Sod 3.375 gm/Sodium Chloride 50 ml @ 100 mls/hr 1X ONCE IV Last administered on 02/01/18at 14:58; Start 02/01/18 at 15:00; Stop 02/01/18 at 15:29; Status DC Ondansetron HCl (Zofran) 4 mg PRN Q8HRS PRN IV NAUSEA/VOMITING Last administered on 02/01/18at 20:42; Start 02/01/18 at 14:45; Stop 02/02/18 at 14:44 ; Status DC Fentanyl Citrate (Fentanyl 2ml Vial) 50 mcg PRN Q1HR PRN IV PAIN Last administered on 02/02/18at 11:15; Start 02/01/18 at 14:45; Stop 02/02/18 at 14:44 ; Status DC Acetaminophen (Tylenol) 650 mg PRN Q4HRS PRN PO FEVER; Start 02/01/18 at 14:45 ; Stop 02/02/18 at 14:44; Status DC Amiodarone HCl (Cordarone) 200 mg DAILY PO Last administered on 02/02/18 08:54 ; Start 02/02/18 at 09:00 Carvedilol (Coreg) 12.5 mg BIDWMEALS PO Last administered on 02/01/18at 20:43; Start 02/01/18 at 21:00 Clopidogrel Bisulfate (Plavix) 75 mg DAILY PO Last administered on 02/02/18 08 :54; Start 02/02/18 at 09:00 Gabapentin (Neurontin) 100 mg TID PO Last administered on 02/02/18 08:54; Start 02/01/18 at 21:00 Losartan Potassium (Cozaar) 100 mg DAILY PO Last administered on 02/02/18at 08: 55; Start 02/02/18 at 09:00 Simvastatin (Zocor) 20 mg HS PO Last administered on 02/01/18at 20:43; Start at 21:00 Active Scripts Active Reported Hydrocodone-Apap 7.5-325 (Hydrocodone Bit/Acetaminophen) 1 Each Tablet 1 Tab PO PRN Q6HRS PRN Gabapentin 100 Mg Capsule 1 Cap PO TID Clopidogrel (Clopidogrel Bisulfate) 75 Mg Tablet 1 Tab PO DAILY Carvedilol 12.5 Mg Tablet 1 Tab PO BID Simvastatin 20 Mg Tablet 1 Tab PO DAILY Losartan Potassium 100 Mg Tablet 1 Tab PO DAILY Amiodarone Hcl 200 Mg Tablet 1 Tab PO DAILY Oxycodone Hcl 5 Mg Capsule 5 Mg PO PRN Q6HRS PRN Allergies Allergies: Coded Allergies: Sulfa (Sulfonamide Antibiotics) (Verified Allergy, Severe, Anaphylaxis, ) levofloxacin (Verified Adverse Reaction, Intermediate, Nausea, 11/15/15) morphine (Verified Adverse Reaction, Intermediate, 11/15/15) Vitals VITALS Vital Signs Date Time Temp Pulse Resp B/P (MAP) Pulse Ox O2 Delivery O2 Flow Rate FiO2 02/02/18 10:42 98.1 66 18 119/64 (82) 92 Room Air 98.1 Labs Labs Laboratory Tests Test 02/01/18 13:00 02/01/18 15:20 02/02/18 03:55 White Blood Count 9.6 x10^3/uL (4.0-11.0) 11.0 x10^3/uL (4.0-11.0) Red Blood Count 5.38 x10^6/uL (3.50-5.40) 4.81 x10^6/uL (3.50-5.40) Hemoglobin 14.6 g/dL (12.0-15.5) 12.9 g/dL (12.0-15.5) Hematocrit 43.7 % (36.0-47.0) 39.4 % (36.0-47.0) Mean Corpuscular Volume 81 fL (79-100) 82 fL (79-100) Mean Corpuscular Hemoglobin 27 pg (25-35) 27 pg (25-35) Mean Corpuscular Hemoglobin Concent 34 g/dL (31-37) 33 g/dL (31-37) Red Cell Distribution Width 17.0 % (11.5-14.5) 17.1 % (11.5-14.5) Platelet Count 246 x10^3/uL (140-400) 242 x10^3/uL (140-400) Neutrophils (%) (Auto) 77 % (31-73) 76 % (31-73) Lymphocytes (%) (Auto) 12 % (24-48) 15 % (24-48) Monocytes (%) (Auto) 6 % (0-9) 6 % (0-9) Eosinophils (%) (Auto) 4 % (0-3) 3 % (0-3) Basophils (%) (Auto) 1 % (0-3) 0 % (0-3) Neutrophils # (Auto) 7.4 x10^3uL (1.8-7.7) 8.4 x10^3uL (1.8-7.7) Lymphocytes # (Auto) 1.2 x10^3/uL (1.0-4.8) 1.6 x10^3/uL (1.0-4.8) Monocytes # (Auto) 0.6 x10^3/uL (0.0-1.1) 0.7 x10^3/uL (0.0-1.1) Eosinophils # (Auto) 0.3 x10^3/uL (0.0-0.7) 0.3 x10^3/uL (0.0-0.7) Basophils # (Auto) 0.1 x10^3/uL (0.0-0.2) 0.0 x10^3/uL (0.0-0.2) Sodium Level 139 mmol/L (136-145) 143 mmol/L (136-145) Potassium Level 3.3 mmol/L (3.5-5.1) 3.7 mmol/L (3.5-5.1) Chloride Level 104 mmol/L (98-107) 106 mmol/L (98-107) Carbon Dioxide Level 25 mmol/L (21-32) 28 mmol/L (21-32) Anion Gap 10 (6-14) 9 (6-14) Blood Urea Nitrogen 17 mg/dL (7-20) 19 mg/dL (7-20) Creatinine 1.1 mg/dL (0.6-1.0) 1.2 mg/dL (0.6-1.0) Estimated GFR (Cockcroft-Gault) 49.5 44.8 BUN/Creatinine Ratio 15 (6-20) 16 (6-20) Glucose Level 130 mg/dL (70-99) 101 mg/dL (70-99) Calcium Level 9.3 mg/dL (8.5-10.1) 9.1 mg/dL (8.5-10.1) Total Bilirubin 0.5 mg/dL (0.2-1.0) 0.5 mg/dL (0.2-1.0) Aspartate Amino Transf (AST/SGOT) 14 U/L (15-37) 11 U/L (15-37) Alanine Aminotransferase (ALT/SGPT) 11 U/L (14-59) 15 U/L (14-59) Alkaline Phosphatase 121 U/L (46-116) 102 U/L (46-116) Total Protein 7.8 g/dL (6.4-8.2) 6.9 g/dL (6.4-8.2) Albumin 3.4 g/dL (3.4-5.0) 3.0 g/dL (3.4-5.0) Albumin/Globulin Ratio 0.8 (1.0-1.7) 0.8 (1.0-1.7) Lipase 119 U/L (73-393) Lactic Acid Level 0.6 mmol/L (0.4-2.0) Laboratory Tests Test 02/01/18 15:20 02/02/18 03:55 Lactic Acid Level 0.6 mmol/L (0.4-2.0) White Blood Count 11.0 x10^3/uL (4.0-11.0) Red Blood Count 4.81 x10^6/uL (3.50-5.40) Hemoglobin 12.9 g/dL (12.0-15.5) Hematocrit 39.4 % (36.0-47.0) Mean Corpuscular Volume 82 fL (79-100) Mean Corpuscular Hemoglobin 27 pg (25-35) Mean Corpuscular Hemoglobin Concent 33 g/dL (31-37) Red Cell Distribution Width 17.1 % (11.5-14.5) Platelet Count 242 x10^3/uL (140-400) Neutrophils (%) (Auto) 76 % (31-73) Lymphocytes (%) (Auto) 15 % (24-48) Monocytes (%) (Auto) 6 % (0-9) Eosinophils (%) (Auto) 3 % (0-3) Basophils (%) (Auto) 0 % (0-3) Neutrophils # (Auto) 8.4 x10^3uL (1.8-7.7) Lymphocytes # (Auto) 1.6 x10^3/uL (1.0-4.8) Monocytes # (Auto) 0.7 x10^3/uL (0.0-1.1) Eosinophils # (Auto) 0.3 x10^3/uL (0.0-0.7) Basophils # (Auto) 0.0 x10^3/uL (0.0-0.2) Sodium Level 143 mmol/L (136-145) Potassium Level 3.7 mmol/L (3.5-5.1) Chloride Level 106 mmol/L (98-107) Carbon Dioxide Level 28 mmol/L (21-32) Anion Gap 9 (6-14) Blood Urea Nitrogen 19 mg/dL (7-20) Creatinine 1.2 mg/dL (0.6-1.0) Estimated GFR (Cockcroft-Gault) 44.8 BUN/Creatinine Ratio 16 (6-20) Glucose Level 101 mg/dL (70-99) Calcium Level 9.1 mg/dL (8.5-10.1) Total Bilirubin 0.5 mg/dL (0.2-1.0) Aspartate Amino Transf (AST/SGOT) 11 U/L (15-37) Alanine Aminotransferase (ALT/SGPT) 15 U/L (14-59) Alkaline Phosphatase 102 U/L (46-116) Total Protein 6.9 g/dL (6.4-8.2) Albumin 3.0 g/dL (3.4-5.0) Albumin/Globulin Ratio 0.8 (1.0-1.7) Assessment/Plan Assessment/Plan LLQ abd pain- secondary to diverticulitis Plan antibiotics serial Cbcs o/p colonoscopy Full note dictated CRISELDA GRAHAM MD Feb 02, 2018 15:09
[2018-02-02] MEDS ORDERED: fentaNYL PF VIAL 100 MCG/2 ML VIAL IV PRN (16:15)
[2018-02-02] MEDS: PIPERACILLIN/TAZOBACTAM 3.375 GM in IV NORMAL SALINE 50ML 50 ML IV SCH (17:05)
[2018-02-02] MEDS ORDERED: PIPERACILLIN/TAZOBACTAM 2.25 GM in IV NORMAL SALINE 50ML 50 ML IV SCH (18:00)
[2018-02-02 19:05] VITALS: BP 137/67
[2018-02-02] MEDS: LACTOBACILLUS RHAMNOSUS GG 1 CAPSULE. PO SCH (20:24)
[2018-02-02] MEDS: SIMVASTATIN 20 MG TABLET PO SCH (20:24)
[2018-02-02] MEDS: fentaNYL PF VIAL 100 MCG/2 ML VIAL IV PRN (21:19)
[2018-02-02 23:05] VITALS: BP 132/67
[2018-02-03] MEDS: PIPERACILLIN/TAZOBACTAM 3.375 GM in IV NORMAL SALINE 50ML 50 ML IV SCH ×5 (00:06→23:04)
[2018-02-03 03:05] VITALS: BP 113/43
--- NOTE | 2018-02-03 04:14 | CONS ---
DATE OF CONSULTATION: 02/02/2018 REFERRING PHYSICIAN: Dr. Zhou. REASON FOR CONSULTATION: Abdominal pain, diverticulitis. HISTORY OF PRESENT ILLNESS: A 67-year-old female with past medical history significant for cardiomyopathy, emphysema, AFib, CHF, hypertension, nephrolithiasis, status post appendectomy, cholecystectomy, hysterectomy, tonsillectomy, tubal ligation, hernia repair, peripheral vascular disease with stents, who was admitted to [facility] with worsening left lower quadrant abdominal pain, subsequently found on x-ray to have diverticulitis, which was mild. The patient has not had any change in bowel habits, any diarrhea or bleeding, constipation, has not undergone previous colonoscopy. There is no family history of colon polyps or colon cancer. Weight and appetite otherwise have been stable. Continued issues, requests consultation. PAST MEDICAL HISTORY: AFib, CHF, COPD, CVA, hypertension and nephrolithiasis. ALLERGIES: SULFA, LEVOFLOXACIN, MORPHINE. MEDICATIONS: Presently include losartan, Plavix, amiodarone, simvastatin, gabapentin, carvedilol and piperacillin. FAMILY AND SOCIAL HISTORY: She is retired. Does not drink or smoke. REVIEW OF SYSTEMS: Per records. PHYSICAL EXAMINATION: GENERAL: Reveals a well-nourished, well-developed female. VITAL SIGNS: Temperature is 98.1, pulse 66, respirations 18, blood pressure 119/64. HEENT: Normocephalic, atraumatic head. Pupils and extraocular muscles are not tested. Sclerae anicteric. NECK: Supple. LUNGS: Clear. Decreased breath sounds, left anterior chest. CARDIOVASCULAR: S1, S2 without S3, S4 or appreciable murmur. ABDOMEN: Reveals left lower quadrant tenderness to deep palpation. No appreciable hepatosplenomegaly, with multiple surgical incisions. EXTREMITIES: Reveals the right hemiparesis. LABORATORY STUDIES: CT scan reveals possible diverticulitis. Hemoglobin is 12.9; hematocrit 39.4; white count 11.0; platelet count is 242,000. Sodium 145, potassium 3.7, chloride 106, BUN 19, creatinine 1.2, glucose is 101. Lactate 0.6, calcium is 9.1, total bilirubin 0.5, AST 11, ALT of 15, alkaline phosphatase of 102, total protein 6.9, albumin 3.0, lipase is 119. IMPRESSION: Diverticulitis. We will continue with antibiotic therapy, have serial blood counts, then patient should consider interval colonoscopy as an outpatient once the acute episode is resolved or if she does not respond to medical therapy, then a CT scan of the abdomen and pelvis would be reperformed in the interval to rule interval development of an abscess or mass or perforation. I would like to thank Dr. Zhou for allowing us to consult and participate in this patient's care. CRISELDA GRAHAM MD DR: PARESH/isela JOB#: [id number] / [id number] DARRICK Huerta MD
[2018-02-03 07:00] VITALS: BP 142/64
[2018-02-03] MEDS: GABAPENTIN 100 MG CAPSULE. PO SCH ×3 (08:37→19:49)
[2018-02-03] MEDS: CLOPIDOGREL BISULFATE 75 MG TABLET PO SCH (08:37)
[2018-02-03] MEDS: LACTOBACILLUS RHAMNOSUS GG 1 CAPSULE. PO SCH ×2 (08:37→19:49)
[2018-02-03] MEDS: LOSARTAN POTASSIUM 50 MG TABLET. PO SCH (08:38)
[2018-02-03] MEDS: CARVEDILOL 12.5 MG TABLET. PO SCH ×2 (08:38→17:07)
[2018-02-03] MEDS: AMIODARONE HCL 200 MG TABLET. PO SCH (08:38)
[2018-02-03] MEDS: fentaNYL PF VIAL 100 MCG/2 ML VIAL IV PRN ×2 (10:17→15:43)
[2018-02-03 10:45] VITALS: BP 172/71
--- NOTE | 2018-02-03 12:27 | PDOC ---
Subjective: Subjective: Feeling better - less LLQ pain, had a normal stool. Objective: Vital Signs: Vital Signs Date Time Temp Pulse Resp B/P (MAP) Pulse Ox O2 Delivery O2 Flow Rate FiO2 02/03/18 10:58 Room Air 02/03/18 10:45 97.7 70 20 172/71 (104) 91 97.7 PE: GEN: NAD, eating a hamburger LUNGS: CTAB HEART: RRR ABD: LLQ not particularly tender, BS quiet NEURO/PSYCH: A & O 3, flat A/P: Sigmoid diverticulitis - on IV antibiotics Abnormal chest imaging, HTN -- LLQ improved, tolerating PO. Plans for outpt (screening) colonoscopy in ~6 weeks. NIMA MONTANEZ Feb 03, 2018 12:27
[2018-02-03] MEDS ORDERED: BUPIVACAINE 0.5% 50 ML VIAL. IJ ONE (13:30)
[2018-02-03] MEDS ORDERED: methylPREDNISolone ACETATE 80 MG/ML VIAL. IM ONE (13:30)
[2018-02-03] MEDS ORDERED: LIDOCAINE 1% Multi-Dose 50 ML VIAL. INJ ONE (13:30)
--- NOTE | 2018-02-03 14:23 | RAD ---
EXAM: Right knee, 3 views. HISTORY: Pain. COMPARISON: 01/27/2018 FINDINGS: Frontal, lateral and oblique views of the right knee are obtained. There is medial compartment joint space narrowing with subchondral sclerosis and marginal spurring. There is also mild lateral and patellofemoral compartment spurring. There is lateral compartment chondrocalcinosis. There is a trace joint effusion. There is an arterial stent within the medial right thigh. IMPRESSION: 1. Moderate medial and mild lateral and patellofemoral compartment osteoarthritis with a suspected trace effusion. 2. No acute osseous finding. Electronically signed by: Lara Wills MD (02/03/2018 2:19 PM) [email or web address]
[2018-02-03 15:00] VITALS: BP 116/52
[2018-02-03] MEDS: HYDROcodone/APAP 10/325 1 TAB TABLET PO PRN ×2 (17:07→23:04)
--- NOTE | 2018-02-03 17:20 | PDOC2 ---
CONSULT Date of Consult Date of Consult DATE: 02/03/18 TIME: 17:05 Reason for Consult Reason for Consult: Right knee pain Identification/Chief Complaint Chief Complaint right knee pain for several months that has worsened recently. Source Source: Chart review, Patient History of Present Illness Reason for Visit: Pain in right knee for extended time with no relief from other treatments. Past Medical History Cardiovascular: AFIB, CAD, CHF, HTN, [place], Other Pulmonary: Bronchitis, COPD, Previously Intubated, Pneumonia CENTRAL NERVOUS SYSTEM: CVA, TIA, Vertigo GI: GERD Musculoskeletal: low back pain, Osteoarthritis, Swelling, Stiffness Renal/: Other Past Surgical History Past Surgical History: Cholecystectomy, Hernia Repair, Hysterectomy, Other Family History Family History: Adopted Social History ALCOHOL: none Drugs: None, Ecstasy Current Problem List Problem List Problems Medical Problems: (1) Diverticulitis Status: Acute (2) Pneumonia Status: Acute Current Medications Current Medications Current Medications Fentanyl Citrate (Fentanyl 2ml Vial) 75 mcg 1X ONCE IV Last administered on at 12:59; Start 02/01/18 at 13:30; Stop 02/01/18 at 13:31; Status DC Ondansetron HCl (Zofran) 4 mg 1X ONCE IV Last administered on 02/01/18at 12:58 ; Start 02/01/18 at 13:30; Stop 02/01/18 at 13:31; Status DC Iohexol (Omnipaque 300 Mg/ml) 60 ml 1X ONCE IV Last administered on 02/01/18at 13:56; Start 02/01/18 at 14:00; Stop 02/01/18 at 14:01; Status DC Info (CONTRAST GIVEN -- Rx MONITORING) 1 each PRN DAILY PRN MC SEE COMMENTS; Start 02/01/18 at 13:45; Stop 02/03/18 at 13:44; Status DC Potassium Chloride (Klor-Con) 40 meq 1X ONCE PO Last administered on at 14:58; Start 02/01/18 at 15:00; Stop 02/01/18 at 15:01; Status DC Piperacillin Sod/ Tazobactam Sod 3.375 gm/Sodium Chloride 50 ml @ 100 mls/hr 1X ONCE IV Last administered on 02/01/18at 14:58; Start 02/01/18 at 15:00; Stop 02/01/18 at 15:29; Status DC Ondansetron HCl (Zofran) 4 mg PRN Q8HRS PRN IV NAUSEA/VOMITING Last administered on 02/01/18 20:42; Start 02/01/18 at 14:45; Stop 02/02/18 at 14:44 ; Status DC Fentanyl Citrate (Fentanyl 2ml Vial) 50 mcg PRN Q1HR PRN IV PAIN Last administered on 02/02/18 11:15; Start 02/01/18 at 14:45; Stop 02/02/18 at 14:44 ; Status DC Acetaminophen (Tylenol) 650 mg PRN Q4HRS PRN PO FEVER; Start 02/01/18 at 14:45 ; Stop 02/02/18 at 14:44; Status DC Amiodarone HCl (Cordarone) 200 mg DAILY PO Last administered on 02/03/18 08:38 ; Start 02/02/18 at 09:00 Carvedilol (Coreg) 12.5 mg BIDWMEALS PO Last administered on 02/03/18 08:38; Start 02/01/18 at 21:00 Clopidogrel Bisulfate (Plavix) 75 mg DAILY PO Last administered on 02/03/18 08 :37; Start 02/02/18 at 09:00 Gabapentin (Neurontin) 100 mg TID PO Last administered on 02/03/18 11:54; Start 02/01/18 at 21:00 Losartan Potassium (Cozaar) 100 mg DAILY PO Last administered on 02/03/18 08: 38; Start 02/02/18 at 09:00 Simvastatin (Zocor) 20 mg HS PO Last administered on 02/02/18at 20:24; Start at 21:00 Piperacillin Sod/ Tazobactam Sod 2.25 gm/Sodium Chloride 50 ml @ 100 mls/hr Q6HRS IV ; Start 02/02/18 at 18:00; Status Cancel Piperacillin Sod/ Tazobactam Sod 3.375 gm/Sodium Chloride 50 ml @ 100 mls/hr Q6HRS IV Last administered on 02/03/18 11:53; Start 02/02/18 at 18:00 Lactobacillus Rhamnosus (Culturelle) 1 cap BID PO Last administered on at 08:37; Start 02/02/18 at 21:00 Fentanyl Citrate (Fentanyl 2ml Vial) 50 mcg PRN Q2HR PRN IV PAIN Last administered on 02/02/18at 16:25; Start 02/02/18 at 16:15; Stop 02/02/18 at 17:07 ; Status DC Fentanyl Citrate (Fentanyl 2ml Vial) 50 mcg PRN Q1HR PRN IV PAIN Last administered on 02/03/18at 15:43; Start 02/02/18 at 17:15 Methylprednisolone Acetate (DEPO-Medrol 80MG VIAL) 80 mg 1X ONCE IM ; Start at 13:30; Stop 02/03/18 at 13:31; Status DC Lidocaine HCl (Lidocaine 1% 50ml Vial) 50 ml 1X ONCE INJ ; Start 02/03/18 at 13 :30; Stop 02/03/18 at 13:31; Status DC Bupivacaine HCl (Marcaine 0.5%) 50 ml 1X ONCE IJ ; Start 02/03/18 at 13:30; Stop 02/03/18 at 13:31; Status DC Acetaminophen/ Hydrocodone Bitart (Lortab 10/325) 1 tab PRN Q6HRS PRN PO PAIN; Start 02/03/18 at 16:30 Active Scripts Active Reported Hydrocodone-Apap 7.5-325 (Hydrocodone Bit/Acetaminophen) 1 Each Tablet 1 Tab PO PRN Q6HRS PRN Gabapentin 100 Mg Capsule 1 Cap PO TID Clopidogrel (Clopidogrel Bisulfate) 75 Mg Tablet 1 Tab PO DAILY Carvedilol 12.5 Mg Tablet 1 Tab PO BID Simvastatin 20 Mg Tablet 1 Tab PO DAILY Losartan Potassium 100 Mg Tablet 1 Tab PO DAILY Amiodarone Hcl 200 Mg Tablet 1 Tab PO DAILY Oxycodone Hcl 5 Mg Capsule 5 Mg PO PRN Q6HRS PRN Allergies Allergies: Coded Allergies: Sulfa (Sulfonamide Antibiotics) (Verified Allergy, Severe, Anaphylaxis, ) levofloxacin (Verified Adverse Reaction, Intermediate, Nausea, 11/15/15) morphine (Verified Adverse Reaction, Intermediate, 11/15/15) Physical Exam General: Alert, Oriented X3, No acute distress Extremities: No clubbing, No cyanosis MUSCULOSKELETAL: Abnormal exam of right (knee with painful ROM) Vitals VITALS Vital Signs Date Time Temp Pulse Resp B/P (MAP) Pulse Ox O2 Delivery O2 Flow Rate FiO2 02/03/18 16:56 Room Air 02/03/18 15:00 99.3 64 18 116/52 (73) 92 99.3 Labs Labs Laboratory Tests Test 02/02/18 03:55 White Blood Count 11.0 x10^3/uL (4.0-11.0) Red Blood Count 4.81 x10^6/uL (3.50-5.40) Hemoglobin 12.9 g/dL (12.0-15.5) Hematocrit 39.4 % (36.0-47.0) Mean Corpuscular Volume 82 fL (79-100) Mean Corpuscular Hemoglobin 27 pg (25-35) Mean Corpuscular Hemoglobin Concent 33 g/dL (31-37) Red Cell Distribution Width 17.1 % (11.5-14.5) Platelet Count 242 x10^3/uL (140-400) Neutrophils (%) (Auto) 76 % (31-73) Lymphocytes (%) (Auto) 15 % (24-48) Monocytes (%) (Auto) 6 % (0-9) Eosinophils (%) (Auto) 3 % (0-3) Basophils (%) (Auto) 0 % (0-3) Neutrophils # (Auto) 8.4 x10^3uL (1.8-7.7) Lymphocytes # (Auto) 1.6 x10^3/uL (1.0-4.8) Monocytes # (Auto) 0.7 x10^3/uL (0.0-1.1) Eosinophils # (Auto) 0.3 x10^3/uL (0.0-0.7) Basophils # (Auto) 0.0 x10^3/uL (0.0-0.2) Sodium Level 143 mmol/L (136-145) Potassium Level 3.7 mmol/L (3.5-5.1) Chloride Level 106 mmol/L (98-107) Carbon Dioxide Level 28 mmol/L (21-32) Anion Gap 9 (6-14) Blood Urea Nitrogen 19 mg/dL (7-20) Creatinine 1.2 mg/dL (0.6-1.0) Estimated GFR (Cockcroft-Gault) 44.8 BUN/Creatinine Ratio 16 (6-20) Glucose Level 101 mg/dL (70-99) Calcium Level 9.1 mg/dL (8.5-10.1) Total Bilirubin 0.5 mg/dL (0.2-1.0) Aspartate Amino Transf (AST/SGOT) 11 U/L (15-37) Alanine Aminotransferase (ALT/SGPT) 15 U/L (14-59) Alkaline Phosphatase 102 U/L (46-116) Total Protein 6.9 g/dL (6.4-8.2) Albumin 3.0 g/dL (3.4-5.0) Albumin/Globulin Ratio 0.8 (1.0-1.7) Images Images xrays were reviewed of the right knee showing advanced OA with loss of medial joint space. Assessment/Plan Assessment/Plan Advancing OA of the right knee DARNELL AGUAYO APRN Feb 03, 2018 17:20
--- NOTE | 2018-02-03 17:24 | PDOC ---
ORTHO PROGRESS NOTES Subjective Patient requesting steroid injection to right knee. Procedure Steroid injection right knee Vitals Vital Signs Date Time Temp Pulse Resp B/P (MAP) Pulse Ox O2 Delivery O2 Flow Rate FiO2 02/03/18 16:56 Room Air 02/03/18 15:00 99.3 64 18 116/52 (73) 92 99.3 Labs Laboratory Tests Test 02/02/18 03:55 White Blood Count 11.0 x10^3/uL (4.0-11.0) Red Blood Count 4.81 x10^6/uL (3.50-5.40) Hemoglobin 12.9 g/dL (12.0-15.5) Hematocrit 39.4 % (36.0-47.0) Mean Corpuscular Volume 82 fL (79-100) Mean Corpuscular Hemoglobin 27 pg (25-35) Mean Corpuscular Hemoglobin Concent 33 g/dL (31-37) Red Cell Distribution Width 17.1 % (11.5-14.5) Platelet Count 242 x10^3/uL (140-400) Neutrophils (%) (Auto) 76 % (31-73) Lymphocytes (%) (Auto) 15 % (24-48) Monocytes (%) (Auto) 6 % (0-9) Eosinophils (%) (Auto) 3 % (0-3) Basophils (%) (Auto) 0 % (0-3) Neutrophils # (Auto) 8.4 x10^3uL (1.8-7.7) Lymphocytes # (Auto) 1.6 x10^3/uL (1.0-4.8) Monocytes # (Auto) 0.7 x10^3/uL (0.0-1.1) Eosinophils # (Auto) 0.3 x10^3/uL (0.0-0.7) Basophils # (Auto) 0.0 x10^3/uL (0.0-0.2) Sodium Level 143 mmol/L (136-145) Potassium Level 3.7 mmol/L (3.5-5.1) Chloride Level 106 mmol/L (98-107) Carbon Dioxide Level 28 mmol/L (21-32) Anion Gap 9 (6-14) Blood Urea Nitrogen 19 mg/dL (7-20) Creatinine 1.2 mg/dL (0.6-1.0) Estimated GFR (Cockcroft-Gault) 44.8 BUN/Creatinine Ratio 16 (6-20) Glucose Level 101 mg/dL (70-99) Calcium Level 9.1 mg/dL (8.5-10.1) Total Bilirubin 0.5 mg/dL (0.2-1.0) Aspartate Amino Transf (AST/SGOT) 11 U/L (15-37) Alanine Aminotransferase (ALT/SGPT) 15 U/L (14-59) Alkaline Phosphatase 102 U/L (46-116) Total Protein 6.9 g/dL (6.4-8.2) Albumin 3.0 g/dL (3.4-5.0) Albumin/Globulin Ratio 0.8 (1.0-1.7) X-Rays OA right knee Assessment and Plan After obtaining consent the right knee was prepped and the injection was given into the lateral joint space without difficulty and the patient tolerated the procedure well. DARNELL AGUAYO APRN Feb 03, 2018 17:23
--- NOTE | 2018-02-03 19:00 | PDOC ---
PROGRESS NOTES Subjective Subjective Complains of a lot of pain to the knee less pain to the abdomen. No nausea at this time. Objective Objective Vital Signs Date Time Temp Pulse Resp B/P (MAP) Pulse Ox O2 Delivery O2 Flow Rate FiO2 02/03/18 17:59 Room Air 02/03/18 17:07 64 116/52 02/03/18 15:00 99.3 18 92 99.3 Intake and Output 02/03/18 07:01 Intake Total 2110 ml Output Total 0 ml Balance 2110 ml Intake Oral 2110 ml Output Urine Total 0 ml # Voids 8 # Bowel Movements 1 Physical Exam Physical Exam No significant changes in cardiac exam Assessment Assessment Patient with diverticulitis and a possible aspiration pneumonia that appears to be slowly improving. I'd like to continue with the IV antibiotics and appreciate the help of the orthopedic service in the GI service. I agree with present plan. Comment Review of Relevant I have reviewed the following items [place] (where applicable) has been applied. Labs Laboratory Tests Test 02/02/18 03:55 White Blood Count 11.0 x10^3/uL (4.0-11.0) Red Blood Count 4.81 x10^6/uL (3.50-5.40) Hemoglobin 12.9 g/dL (12.0-15.5) Hematocrit 39.4 % (36.0-47.0) Mean Corpuscular Volume 82 fL (79-100) Mean Corpuscular Hemoglobin 27 pg (25-35) Mean Corpuscular Hemoglobin Concent 33 g/dL (31-37) Red Cell Distribution Width 17.1 % (11.5-14.5) Platelet Count 242 x10^3/uL (140-400) Neutrophils (%) (Auto) 76 % (31-73) Lymphocytes (%) (Auto) 15 % (24-48) Monocytes (%) (Auto) 6 % (0-9) Eosinophils (%) (Auto) 3 % (0-3) Basophils (%) (Auto) 0 % (0-3) Neutrophils # (Auto) 8.4 x10^3uL (1.8-7.7) Lymphocytes # (Auto) 1.6 x10^3/uL (1.0-4.8) Monocytes # (Auto) 0.7 x10^3/uL (0.0-1.1) Eosinophils # (Auto) 0.3 x10^3/uL (0.0-0.7) Basophils # (Auto) 0.0 x10^3/uL (0.0-0.2) Sodium Level 143 mmol/L (136-145) Potassium Level 3.7 mmol/L (3.5-5.1) Chloride Level 106 mmol/L (98-107) Carbon Dioxide Level 28 mmol/L (21-32) Anion Gap 9 (6-14) Blood Urea Nitrogen 19 mg/dL (7-20) Creatinine 1.2 mg/dL (0.6-1.0) Estimated GFR (Cockcroft-Gault) 44.8 BUN/Creatinine Ratio 16 (6-20) Glucose Level 101 mg/dL (70-99) Calcium Level 9.1 mg/dL (8.5-10.1) Total Bilirubin 0.5 mg/dL (0.2-1.0) Aspartate Amino Transf (AST/SGOT) 11 U/L (15-37) Alanine Aminotransferase (ALT/SGPT) 15 U/L (14-59) Alkaline Phosphatase 102 U/L (46-116) Total Protein 6.9 g/dL (6.4-8.2) Albumin 3.0 g/dL (3.4-5.0) Albumin/Globulin Ratio 0.8 (1.0-1.7) Microbiology 02/01/18 Blood Culture - Preliminary, Resulted NO GROWTH AFTER 2 DAYS Medications Current Medications Fentanyl Citrate (Fentanyl 2ml Vial) 75 mcg 1X ONCE IV Last administered on at 12:59; Start 02/01/18 at 13:30; Stop 02/01/18 at 13:31; Status DC Ondansetron HCl (Zofran) 4 mg 1X ONCE IV Last administered on 02/01/18at 12:58 ; Start 02/01/18 at 13:30; Stop 02/01/18 at 13:31; Status DC Iohexol (Omnipaque 300 Mg/ml) 60 ml 1X ONCE IV Last administered on 02/01/18at 13:56; Start 02/01/18 at 14:00; Stop 02/01/18 at 14:01; Status DC Info (CONTRAST GIVEN -- Rx MONITORING) 1 each PRN DAILY PRN MC SEE COMMENTS; Start 02/01/18 at 13:45; Stop 02/03/18 at 13:44; Status DC Potassium Chloride (Klor-Con) 40 meq 1X ONCE PO Last administered on at 14:58; Start 02/01/18 at 15:00; Stop 02/01/18 at 15:01; Status DC Piperacillin Sod/ Tazobactam Sod 3.375 gm/Sodium Chloride 50 ml @ 100 mls/hr 1X ONCE IV Last administered on 02/01/18at 14:58; Start 02/01/18 at 15:00; Stop 02/01/18 at 15:29; Status DC Ondansetron HCl (Zofran) 4 mg PRN Q8HRS PRN IV NAUSEA/VOMITING Last administered on 02/01/18at 20:42; Start 02/01/18 at 14:45; Stop 02/02/18 at 14:44 ; Status DC Fentanyl Citrate (Fentanyl 2ml Vial) 50 mcg PRN Q1HR PRN IV PAIN Last administered on 02/02/18at 11:15; Start 02/01/18 at 14:45; Stop 02/02/18 at 14:44 ; Status DC Acetaminophen (Tylenol) 650 mg PRN Q4HRS PRN PO FEVER; Start 02/01/18 at 14:45 ; Stop 02/02/18 at 14:44; Status DC Amiodarone HCl (Cordarone) 200 mg DAILY PO Last administered on 02/03/18at 08:38 ; Start 02/02/18 at 09:00 Carvedilol (Coreg) 12.5 mg BIDWMEALS PO Last administered on 02/03/18at 17:07; Start 02/01/18 at 21:00 Clopidogrel Bisulfate (Plavix) 75 mg DAILY PO Last administered on 02/03/18at 08 :37; Start 02/02/18 at 09:00 Gabapentin (Neurontin) 100 mg TID PO Last administered on 02/03/18at 11:54; Start 02/01/18 at 21:00 Losartan Potassium (Cozaar) 100 mg DAILY PO Last administered on 02/03/18at 08: 38; Start 02/02/18 at 09:00 Simvastatin (Zocor) 20 mg HS PO Last administered on 02/02/18at 20:24; Start at 21:00 Piperacillin Sod/ Tazobactam Sod 2.25 gm/Sodium Chloride 50 ml @ 100 mls/hr Q6HRS IV ; Start 02/02/18 at 18:00; Status Cancel Piperacillin Sod/ Tazobactam Sod 3.375 gm/Sodium Chloride 50 ml @ 100 mls/hr Q6HRS IV Last administered on 02/03/18 17:07; Start 02/02/18 at 18:00 Lactobacillus Rhamnosus (Culturelle) 1 cap BID PO Last administered on at 08:37; Start 02/02/18 at 21:00 Fentanyl Citrate (Fentanyl 2ml Vial) 50 mcg PRN Q2HR PRN IV PAIN Last administered on 02/02/18 16:25; Start 02/02/18 at 16:15; Stop 02/02/18 at 17:07 ; Status DC Fentanyl Citrate (Fentanyl 2ml Vial) 50 mcg PRN Q1HR PRN IV PAIN Last administered on 02/03/18at 15:43; Start 02/02/18 at 17:15 Methylprednisolone Acetate (DEPO-Medrol 80MG VIAL) 80 mg 1X ONCE IM Last administered on 02/03/18 17:25; Start 02/03/18 at 13:30; Stop 02/03/18 at 13:31 ; Status DC Lidocaine HCl (Lidocaine 1% 50ml Vial) 50 ml 1X ONCE INJ Last administered on 02/03/18 17:25; Start 02/03/18 at 13:30; Stop 02/03/18 at 13:31; Status DC Bupivacaine HCl (Marcaine 0.5%) 50 ml 1X ONCE IJ Last administered on at 17:25; Start 02/03/18 at 13:30; Stop 02/03/18 at 13:31; Status DC Acetaminophen/ Hydrocodone Bitart (Lortab 10/325) 1 tab PRN Q6HRS PRN PO PAIN Last administered on 02/03/18 17:07; Start 02/03/18 at 16:30 Active Scripts Active Reported Hydrocodone-Apap 7.5-325 (Hydrocodone Bit/Acetaminophen) 1 Each Tablet 1 Tab PO PRN Q6HRS PRN Gabapentin 100 Mg Capsule 1 Cap PO TID Clopidogrel (Clopidogrel Bisulfate) 75 Mg Tablet 1 Tab PO DAILY Carvedilol 12.5 Mg Tablet 1 Tab PO BID Simvastatin 20 Mg Tablet 1 Tab PO DAILY Losartan Potassium 100 Mg Tablet 1 Tab PO DAILY Amiodarone Hcl 200 Mg Tablet 1 Tab PO DAILY Oxycodone Hcl 5 Mg Capsule 5 Mg PO PRN Q6HRS PRN Vitals/I & O Vital Sign - Last 24 Hours 02/02/18 02/02/18 02/02/18 02/02/18 19:05 20:00 21:19 21:50 Temp 97.9 97.9 Pulse 68 Resp 18 17 17 B/P (MAP) 137/67 (90) Pulse Ox 93 O2 Delivery Room Air Room Air Room Air 02/02/18 02/03/18 02/03/18 02/03/18 23:05 03:05 07:00 07:23 Temp 98.0 98.1 97.5 98.0 98.1 97.5 Pulse 97 61 60 Resp 18 18 16 B/P (MAP) 132/67 (88) 113/43 (66) 142/64 (90) Pulse Ox 91 90 92 O2 Delivery Room Air Room Air Room Air Room Air 02/03/18 02/03/18 02/03/18 02/03/18 08:38 08:38 08:38 10:17 Pulse 60 60 60 B/P (MAP) 142/64 142/64 142/64 O2 Delivery Room Air 02/03/18 02/03/18 02/03/18 02/03/18 10:45 15:00 15:43 16:56 Temp 97.7 99.3 97.7 99.3 Pulse 70 64 Resp 20 18 B/P (MAP) 172/71 (104) 116/52 (73) Pulse Ox 91 92 O2 Delivery Room Air Room Air Room Air Room Air 02/03/18 02/03/18 02/03/18 17:07 17:07 17:59 Pulse 64 B/P (MAP) 116/52 O2 Delivery Room Air Room Air Intake and Output 02/02/18 02/02/18 02/03/18 15:01 23:01 07:01 Intake Total 660 ml 900 ml 550 ml Output Total 0 ml Balance 660 ml 900 ml 550 ml DARRICK PINTO MD Feb 03, 2018 19:00
[2018-02-03] MEDS: SIMVASTATIN 20 MG TABLET PO SCH (19:50)
[2018-02-03 19:59] VITALS: BP 110/68
[2018-02-03 23:11] VITALS: BP 132/70
[2018-02-04 03:12] VITALS: BP 141/72
[2018-02-04] MEDS: PIPERACILLIN/TAZOBACTAM 3.375 GM in IV NORMAL SALINE 50ML 50 ML IV SCH ×4 (05:29→23:30)
[2018-02-04] MEDS: HYDROcodone/APAP 10/325 1 TAB TABLET PO PRN ×2 (05:30→17:04)
[2018-02-04 07:00] VITALS: BP 171/84
[2018-02-04] MEDS: GABAPENTIN 100 MG CAPSULE. PO SCH ×3 (08:24→21:11)
[2018-02-04] MEDS: CLOPIDOGREL BISULFATE 75 MG TABLET PO SCH (08:24)
[2018-02-04] MEDS: LACTOBACILLUS RHAMNOSUS GG 1 CAPSULE. PO SCH ×2 (08:24→21:11)
[2018-02-04] MEDS: AMIODARONE HCL 200 MG TABLET. PO SCH (08:24)
[2018-02-04] MEDS: LOSARTAN POTASSIUM 50 MG TABLET. PO SCH (08:24)
[2018-02-04] MEDS: CARVEDILOL 12.5 MG TABLET. PO SCH ×2 (08:25→17:04)
[2018-02-04] MEDS ORDERED: ONDANSETRON PF 4 MG/2 ML VIAL. IV PRN (10:45)
[2018-02-04 11:00] VITALS: BP 156/84
--- NOTE | 2018-02-04 11:11 | PDOC ---
Subjective: Subjective: Seen earlier when unable to use [employer]. Bilious emesis this morning, then ate breakfast and kept it down. LLQ pain might be worse. Objective: Objective: RN asked for an order for Zofran. Vital Signs: Vital Signs Date Time Temp Pulse Resp B/P (MAP) Pulse Ox O2 Delivery O2 Flow Rate FiO2 02/04/18 08:25 59 171/84 02/04/18 07:13 Room Air 02/04/18 07:00 96.1 16 94 96.1 PE: GEN: NAD - emesis basin on bed (empty) LUNGS: CTAB HEART: bradycardic ABD: BS+ LLQ discomfort (vague) NEURO/PSYCH: A & O 3, flat A/P: Sigmoid diverticulitis - on IV antibiotics N/v -- Vomiting overnight but now tolerating PO. Zofran rafal PRN - d/w RN earlier. Will add acid-sediment remediation consultant. If continued issues, would back off on diet. NIMA MONTANEZ Feb 04, 2018 11:11
[2018-02-04 15:00] VITALS: BP 163/82
--- NOTE | 2018-02-04 18:42 | PDOC ---
PROGRESS NOTES Subjective Subjective Patient had some nausea earlier today. Is feeling better now. Less abdominal pain. Knee feels better at this time. Objective Objective Vital Signs Date Time Temp Pulse Resp B/P (MAP) Pulse Ox O2 Delivery O2 Flow Rate FiO2 02/04/18 17:53 Room Air 02/04/18 17:04 61 163/82 02/04/18 15:00 98.1 20 93 98.1 Intake and Output 02/04/18 07:00 Intake Total 630 ml Output Total 204 ml Balance 426 ml Intake Oral 630 ml Output Urine Total 204 ml # Voids 1 Physical Exam Physical Exam Moving air well. No wheezing. Heart sounds unchanged. Abdomen is soft less tenderness. Extremities no changes Assessment Assessment Patient seems to be improving. Home soon when okay with the other services Comment Review of Relevant I have reviewed the following items [place] (where applicable) has been applied. Labs Microbiology 02/01/18 Blood Culture - Preliminary, Resulted NO GROWTH AFTER 3 DAYS Medications Current Medications Fentanyl Citrate (Fentanyl 2ml Vial) 75 mcg 1X ONCE IV Last administered on at 12:59; Start 02/01/18 at 13:30; Stop 02/01/18 at 13:31; Status DC Ondansetron HCl (Zofran) 4 mg 1X ONCE IV Last administered on 02/01/18at 12:58 ; Start 02/01/18 at 13:30; Stop 02/01/18 at 13:31; Status DC Iohexol (Omnipaque 300 Mg/ml) 60 ml 1X ONCE IV Last administered on 02/01/18at 13:56; Start 02/01/18 at 14:00; Stop 02/01/18 at 14:01; Status DC Info (CONTRAST GIVEN -- Rx MONITORING) 1 each PRN DAILY PRN MC SEE COMMENTS; Start 02/01/18 at 13:45; Stop 02/03/18 at 13:44; Status DC Potassium Chloride (Klor-Con) 40 meq 1X ONCE PO Last administered on at 14:58; Start 02/01/18 at 15:00; Stop 02/01/18 at 15:01; Status DC Piperacillin Sod/ Tazobactam Sod 3.375 gm/Sodium Chloride 50 ml @ 100 mls/hr 1X ONCE IV Last administered on 02/01/18at 14:58; Start 02/01/18 at 15:00; Stop 02/01/18 at 15:29; Status DC Ondansetron HCl (Zofran) 4 mg PRN Q8HRS PRN IV NAUSEA/VOMITING Last administered on 02/01/18 20:42; Start 02/01/18 at 14:45; Stop 02/02/18 at 14:44 ; Status DC Fentanyl Citrate (Fentanyl 2ml Vial) 50 mcg PRN Q1HR PRN IV PAIN Last administered on 02/02/18 11:15; Start 02/01/18 at 14:45; Stop 02/02/18 at 14:44 ; Status DC Acetaminophen (Tylenol) 650 mg PRN Q4HRS PRN PO FEVER; Start 02/01/18 at 14:45 ; Stop 02/02/18 at 14:44; Status DC Amiodarone HCl (Cordarone) 200 mg DAILY PO Last administered on 02/04/18 08:24 ; Start 02/02/18 at 09:00 Carvedilol (Coreg) 12.5 mg BIDWMEALS PO Last administered on 02/04/18 17:04; Start 02/01/18 at 21:00 Clopidogrel Bisulfate (Plavix) 75 mg DAILY PO Last administered on 02/04/18 08 :24; Start 02/02/18 at 09:00 Gabapentin (Neurontin) 100 mg TID PO Last administered on 02/04/18at 11:33; Start 02/01/18 at 21:00 Losartan Potassium (Cozaar) 100 mg DAILY PO Last administered on 02/04/18 08: 24; Start 02/02/18 at 09:00 Simvastatin (Zocor) 20 mg HS PO Last administered on 02/03/18at 19:50; Start at 21:00 Piperacillin Sod/ Tazobactam Sod 2.25 gm/Sodium Chloride 50 ml @ 100 mls/hr Q6HRS IV ; Start 02/02/18 at 18:00; Status Cancel Piperacillin Sod/ Tazobactam Sod 3.375 gm/Sodium Chloride 50 ml @ 100 mls/hr Q6HRS IV Last administered on 02/04/18 17:04; Start 02/02/18 at 18:00 Lactobacillus Rhamnosus (Culturelle) 1 cap BID PO Last administered on 8/21/ 18at 08:24; Start 02/02/18 at 21:00 Fentanyl Citrate (Fentanyl 2ml Vial) 50 mcg PRN Q2HR PRN IV PAIN Last administered on 02/02/18at 16:25; Start 02/02/18 at 16:15; Stop 02/02/18 at 17:07 ; Status DC Fentanyl Citrate (Fentanyl 2ml Vial) 50 mcg PRN Q1HR PRN IV PAIN Last administered on 02/03/18at 15:43; Start 02/02/18 at 17:15 Methylprednisolone Acetate (DEPO-Medrol 80MG VIAL) 80 mg 1X ONCE IM Last administered on 02/03/18at 17:25; Start 02/03/18 at 13:30; Stop 02/03/18 at 13:31 ; Status DC Lidocaine HCl (Lidocaine 1% 50ml Vial) 50 ml 1X ONCE INJ Last administered on 02/03/18at 17:25; Start 02/03/18 at 13:30; Stop 02/03/18 at 13:31; Status DC Bupivacaine HCl (Marcaine 0.5%) 50 ml 1X ONCE IJ Last administered on at 17:25; Start 02/03/18 at 13:30; Stop 02/03/18 at 13:31; Status DC Acetaminophen/ Hydrocodone Bitart (Lortab 10/325) 1 tab PRN Q6HRS PRN PO PAIN Last administered on 02/04/18at 17:04; Start 02/03/18 at 16:30 Ondansetron HCl (Zofran) 4 mg PRN Q8HRS PRN IV NAUSEA/VOMITING; Start 02/04/18 at 10:45 Famotidine (Pepcid) 20 mg QHS PO ; Start 02/04/18 at 21:00 Active Scripts Active Reported Hydrocodone-Apap 7.5-325 (Hydrocodone Bit/Acetaminophen) 1 Each Tablet 1 Tab PO PRN Q6HRS PRN Gabapentin 100 Mg Capsule 1 Cap PO TID Clopidogrel (Clopidogrel Bisulfate) 75 Mg Tablet 1 Tab PO DAILY Carvedilol 12.5 Mg Tablet 1 Tab PO BID Simvastatin 20 Mg Tablet 1 Tab PO DAILY Losartan Potassium 100 Mg Tablet 1 Tab PO DAILY Amiodarone Hcl 200 Mg Tablet 1 Tab PO DAILY Oxycodone Hcl 5 Mg Capsule 5 Mg PO PRN Q6HRS PRN Vitals/I & O Vital Sign - Last 24 Hours 02/03/18 02/03/18 02/03/18 02/03/18 19:59 20:00 23:04 23:11 Temp 98.1 97.7 98.1 97.7 Pulse 59 58 Resp 16 16 B/P (MAP) 110/68 (82) 132/70 (90) Pulse Ox 90 93 O2 Delivery Room Air Room Air Room Air Room Air 02/04/18 02/04/18 02/04/18 02/04/18 03:12 05:30 07:00 07:13 Temp 97.4 96.1 97.4 96.1 Pulse 57 59 Resp 16 16 B/P (MAP) 141/72 (95) 171/84 (113) Pulse Ox 93 94 O2 Delivery Room Air Room Air Room Air Room Air 02/04/18 02/04/18 02/04/18 02/04/18 08:24 08:24 08:25 11:00 Temp 97.5 97.5 Pulse 59 59 59 62 Resp 16 B/P (MAP) 171/84 171/84 171/84 156/84 (108) Pulse Ox 94 O2 Delivery Room Air 02/04/18 02/04/18 02/04/18 15:00 17:04 17:53 Temp 98.1 98.1 Pulse 61 61 Resp 20 B/P (MAP) 163/82 (109) 163/82 Pulse Ox 93 O2 Delivery Room Air Room Air Intake and Output 02/03/18 02/03/18 02/04/18 15:00 23:00 07:00 Intake Total 360 ml 150 ml 120 ml Output Total 2 ml 202 ml Balance 360 ml 148 ml -82 ml DARRICK PINTO MD Feb 04, 2018 18:41
[2018-02-04 19:15] VITALS: BP 144/77
[2018-02-04] MEDS ORDERED: FAMOTIDINE 20 MG TABLET. PO SCH (21:00)
[2018-02-04] MEDS: SIMVASTATIN 20 MG TABLET PO SCH (21:11)
[2018-02-04 22:57] VITALS: BP 149/76
[2018-02-05 03:31] VITALS: BP 170/91
[2018-02-05] MEDS: HYDROcodone/APAP 10/325 1 TAB TABLET PO PRN (04:40)
[2018-02-05] MEDS: PIPERACILLIN/TAZOBACTAM 3.375 GM in IV NORMAL SALINE 50ML 50 ML IV SCH ×2 (05:55→12:15)
[2018-02-05 07:00] VITALS: BP 169/79
[2018-02-05] MEDS: CARVEDILOL 12.5 MG TABLET. PO SCH (09:08)
[2018-02-05] MEDS: LACTOBACILLUS RHAMNOSUS GG 1 CAPSULE. PO SCH (09:08)
[2018-02-05] MEDS: CLOPIDOGREL BISULFATE 75 MG TABLET PO SCH (09:08)
[2018-02-05] MEDS: GABAPENTIN 100 MG CAPSULE. PO SCH (09:08)
[2018-02-05] MEDS: LOSARTAN POTASSIUM 50 MG TABLET. PO SCH (09:09)
[2018-02-05] MEDS: AMIODARONE HCL 200 MG TABLET. PO SCH (09:10)
[2018-02-05 11:00] VITALS: BP 160/78
[2018-02-05] MEDS ORDERED: LACT1CAP19 PO (13:32)
[2018-02-05] MEDS ORDERED: FAMO20TA5 PO (13:35)
--- NOTE | 2018-02-05 14:07 | PDOC ---
Subjective: Subjective: Feels much better, going home. Eating and stooling w/o issue. Objective: Vital Signs: Vital Signs Date Time Temp Pulse Resp B/P (MAP) Pulse Ox O2 Delivery O2 Flow Rate FiO2 02/05/18 11:00 98.0 66 18 160/78 (105) 98 Room Air 98.0 PE: GEN: NAD LUNGS: CTAB HEART: RRR ABD: NABS, S/ND/NT NEURO/PSYCH: A & O 3 A/P: Sigmoid diverticulitis N/v, abd pain - resolved -- DC per primary on atbx, follow-up for outpt colonoscopy in ~2 months. NIMA MONTANEZ Feb 05, 2018 14:07
--- NOTE | 2018-02-05 18:08 | PDOC3 ---
*Discharge Summary* Date of Admission: Feb 01, 2018 Date of Discharge: Feb 05, 2018 Admitting Diagnosis Abdominal pain Diverticulitis Knee pain Arthritis Pneumonia Final Diagnosis Abdominal pain Diverticulitis and diverticulosis Knee pain Arthritis Pneumonia Status post CVA Severe peripheral vascular disease Severe COPD CONSULTS Orthopedic service GI service Procedures Knee injection Brief Hospital Course [id number] lady with a known history of severe COPD, severe peripheral vascular disease, episodes of CHF and known coronary artery disease. She had a previous CVA that left her with a lot of motor deficits as well as dysarthria. The patient has been at home being cared for by the family. She developed severe knee pain and was brought to the ER where she was seen and it was recommended for the patient to go see the orthopedic service as an outpatient. She was discharged home but at home she developed severe abdominal pain and a possible fever as well as shortness of breath and a cough. This was in addition to her severe knee pain and her level of activity is pretty much used to either sit in a wheelchair or laying in bed. Due to the intractable abdominal pain the patient came to the ER where she was seen and evaluated and he was decided to admit her for further workup. I saw the patient in the emergency room and I found her to have tenderness of the abdomen and his CT was done that showed diverticulosis as well as diverticulitis and in the lower [place] of the lungs there are appears to be a pneumonia as well. In view of the patient's condition I felt that she didn't need admission and I consulted GI and because of the knee pain I consulted the orthopedic service. The patient was seen by both services and she was started on antibiotics and initially she was nothing by mouth and then the diet was advanced slowly as tolerated. She received IV fluids and IV antibiotics. The orthopedic surgery came in and injected her knee. Today she appears to feel better and the abdominal pain has improved significantly and she seems to be tolerating the by mouth route and her knee pain has also improved therefore was decided to discharge her home today. She is going to follow-up as an outpatient with the GI and the orthopedic service. I've discussed with her about diet activity medications and follow-up. Please see the MRAD list for the list of medications. CONDITION AT DISCHARGE: Improved, Stable Home Meds Reported Medications Famotidine (FAMOTIDINE) 20 Mg Tablet, 20 MG PO HS, TAB 02/05/18 Lactobacillus Rhamnosus Gg (CULTURELLE) 1 Each Cap.sprink, 1 EACH PO BID, CAP 02/05/18 Hydrocodone Bit/Acetaminophen (HYDROCODONE-APAP 7.5-325 ) 1 Each Tablet, 1 TAB PO PRN Q6HRS PRN for PAIN 02/01/18 Gabapentin (Gabapentin) 100 Mg Capsule, 1 CAP PO TID 02/01/18 Clopidogrel Bisulfate (CLOPIDOGREL) 75 Mg Tablet, 1 TAB PO DAILY 02/01/18 Carvedilol (CARVEDILOL) 12.5 Mg Tablet, 1 TAB PO BID 02/01/18 Losartan Potassium (LOSARTAN POTASSIUM) 100 Mg Tablet, 1 TAB PO DAILY 02/01/18 Amiodarone Hcl (AMIODARONE HCL) 200 Mg Tablet, 1 TAB PO DAILY 02/01/18 Discontinued Reported Medications Simvastatin (SIMVASTATIN) 20 Mg Tablet, 1 TAB PO DAILY 02/01/18 Oxycodone Hcl (OXYCODONE HCL) 5 Mg Capsule, 5 MG PO PRN Q6HRS PRN for PAIN 02/01/18 Scheduled Amiodarone Hcl (Amiodarone Hcl), 1 TAB PO DAILY, (Reported) Carvedilol (Carvedilol), 1 TAB PO BID, (Reported) Clopidogrel Bisulfate (Clopidogrel), 1 TAB PO DAILY, (Reported) Famotidine (Famotidine), 20 MG PO HS, (Reported) Gabapentin (Gabapentin), 1 CAP PO TID, (Reported) Lactobacillus Rhamnosus Gg (Culturelle), 1 EACH PO BID, (Reported) Losartan Potassium (Losartan Potassium), 1 TAB PO DAILY, (Reported) Scheduled PRN Hydrocodone Bit/Acetaminophen (Hydrocodone-Apap 7.5-325 ), 1 TAB PO PRN Q6HRS PRN for PAIN, (Reported) Discontinued Medications Oxycodone Hcl (Oxycodone Hcl), 5 MG PO PRN Q6HRS PRN for PAIN, (Reported) Simvastatin (Simvastatin), 1 TAB PO DAILY, (Reported) Time Spent Total time spent with patient [] minutes for coordination of care, counseling, and education. DARRICK PINTO MD Feb 05, 2018 18:08
== END 2018-02-05 14:05 | disposition home or self-care (01) | DRG 178 ==
LOC: ER 11:58 → 6 SOUTH 14:47
PROVIDERS: ADMIT Internal Medicine Cardiovascular Disease; ATTEND Internal Medicine Cardiovascular Disease
PROC: 3E0U33Z Introduction of Anti-inflammatory into Joints, Percutaneous Approach (ICD-10-PCS; principal; 2018-02-03)
DX: J69.0 Pneumonitis due to inhalation of food and vomit (principal); I42.9 Cardiomyopathy, unspecified; K56.1 Intussusception; K57.32 Diverticulitis of large intestine without perforation or abscess without bleeding; M17.11 Unilateral primary osteoarthritis, right knee; D17.9 Benign lipomatous neoplasm, unspecified; I11.0 Hypertensive heart disease with heart failure; I25.10 Atherosclerotic heart disease of native coronary artery without angina pectoris; I48.2 Chronic atrial fibrillation; I50.9 Heart failure, unspecified; I73.9 Peripheral vascular disease, unspecified; J44.9 Chronic obstructive pulmonary disease, unspecified; K21.9 Gastro-esophageal reflux disease without esophagitis; N20.0 Calculus of kidney; Z79.02 Long term (current) use of antithrombotics/antiplatelets; Z79.899 Other long term (current) drug therapy; Z86.73 Personal history of transient ischemic attack (TIA), and cerebral infarction without residual deficits; Z87.442 Personal history of urinary calculi; Z90.49 Acquired absence of other specified parts of digestive tract; Z90.710 Acquired absence of both cervix and uterus; Z95.820 Peripheral vascular angioplasty status with implants and grafts; Z98.51 Tubal ligation status; Z88.5 Allergy status to narcotic agent; Z88.1 Allergy status to other antibiotic agents; Z88.2 Allergy status to sulfonamides
CPT/HCPCS: 36415; 71045; 73562; 74177; 80053; 83605; 83690; 85025; 87040; 96365; 96375; J1040; J2405; J2543; J3010; J3490; Q9967; 97530; 97535; 99285-25

== ENCOUNTER 2018-03-30 13:46 | Inpatient (IN) | payer OTHER ==
[~2018-03-30] VITALS: Ht 160 cm; Wt 87.1 kg
[~2018-03-30 13:46] MED LIST changes: +GABA100C6 PO; +LACT1CAP19 PO; -LOSA100T6 PO; +LOSA100T7 PO; +SIMV20TA3 PO
[2018-03-30 14:30] LABS: BILIRUBIN,URINE NEGATIVE (NEG); CLARITY,URINE CLEAR; COLOR,URINE YELLOW; NITRITE,URINE NEGATIVE (NEG); PROTEIN,URINE 30 mg/dL (NEG-TRACE); UROBILINOGEN,URINE 0.2 mg/dL (0.2 mg/dL)
[2018-03-30] MEDS ORDERED: fentaNYL PF VIAL 100 MCG/2 ML VIAL IV ONE (14:30)
[2018-03-30] MEDS ORDERED: ONDANSETRON PF 4 MG/2 ML VIAL. IV ONE (14:30)
[2018-03-30 14:35] LABS: SQUAMOUS EPITHELIAL CELL,UR MANY /LPF
[2018-03-30 14:37] LABS: BACTERIA,URINE FEW /HPF (0-FEW); RBC,URINE >40 /HPF (0-2)
[2018-03-30 15:07] LABS: BASO # 0.1 x10^3/uL (0.0-0.2); BASO % 1 % (0-3); EOS # 0.1 x10^3/uL (0.0-0.7); EOS % 1 % (0-3); HEMATOCRIT 42.9 % (36.0-47.0); HEMOGLOBIN 14.4 g/dL (12.0-15.5); LYMPH # 1.4 x10^3/uL (1.0-4.8); LYMPH % 14 % (24-48); MEAN CORPUSCULAR HEMOGLOBIN 28 pg (25-35); MEAN CORPUSCULAR HGB CONC 33 g/dL (31-37); MEAN CORPUSCULAR VOLUME 82 fL (79-100); MONO # 0.7 x10^3/uL (0.0-1.1); MONO % 7 % (0-9); NEUT # 8.1 x10^3uL (1.8-7.7); NEUT % 78 % (31-73); PLATELET COUNT 206 x10^3/uL (140-400); RED BLOOD COUNT 5.21 x10^6/uL (3.50-5.40); RED CELL DISTRIBUTION WIDTH 15.9 % (11.5-14.5); WHITE BLOOD COUNT 10.4 x10^3/uL (4.0-11.0)
[2018-03-30 15:15] LABS: CREATININE 0.9 mg/dL (0.6-1.0); GFR 62.5
[2018-03-30 15:21] LABS: ALBUMIN 3.2 g/dL (3.4-5.0); ALBUMIN/GLOBULIN RATIO 0.8 (1.0-1.7); TOTAL BILIRUBIN 0.5 mg/dL (0.2-1.0); TOTAL PROTEIN 7.4 g/dL (6.4-8.2)
[2018-03-30] MEDS ORDERED: IV NORMAL SALINE 1000ML BAG 1,000 ML IV ONE (15:30)
--- NOTE | 2018-03-30 15:55 | RAD ---
PQRS Compliance Statement: One or more of the following individualized dose reduction techniques were utilized for this examination: 1. Automated exposure control 2. Adjustment of the mA and/or kV according to patient size 3. Use of iterative reconstruction technique CT ABDOMEN PELVIS WO CONTRAST Clinical Indication: hx kidney stent placement, needs surgery, extreme pain
previous Comparison: CT abdomen and pelvis without contrast, March 21, 2018. Technique: Helical CT imaging of the abdomen and pelvis is performed without IV or oral contrast. Findings: Moderate atelectasis or scarring in the lung bases. Stable mild cardiomegaly. Gallbladder not seen, likely surgically absent. The liver, spleen, and pancreas are normal. 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 Atherosclerotic abdominal aorta, no aneurysm. Staghorn calculi of the left kidney are unchanged. Probable bilateral renal cysts are stable. There is no left hydronephrosis. There is right ureteral stent in appropriate position. Right hydronephrosis has resolved. Right renal calculi at the level the pelvic brim are unchanged. There is another right ureteral calculus just distal to the pelvic brim. No urinary bladder wall thickening. Stomach unremarkable. No dilated small bowel. The rectum is moderately distended with stool. There is no wall thickening. There is diverticulitis of the proximal sigmoid colon. There are severe diverticula in this region. There is moderate surrounding inflammation. No perforation is identified. There is no peridiverticular abscess. Hysterectomy. No pelvic free fluid. Grade 1 anterolisthesis of L4 on L5. IMPRESSION: 1. Diverticulitis of the proximal sigmoid colon. 2. Right ureteral stent, right hydronephrosis has resolved. Right ureteral calculi number approximately 4 and are in similar position. 3. Bilateral nonobstructing renal calculi. 4. Bilateral probable renal cysts are stable. Electronically signed by: Franko Millan MD (03/30/2018 3:51 PM) [facility]
--- NOTE | 2018-03-30 16:08 | PHYS DOC ---
Past Medical History Past Medical History: A-Fib, CHF, COPD, CVA, Hypertension, Kidney Stone, Other Additional Past Medical Histor: Emphysema, Cardiomyopathy, PAD Past Surgical History: Appendectomy, Cholecystectomy, Hysterectomy, Tonsillectomy, Tubal ligation Additional Past Surgical Histo: hernia repair, arteriogram, 2 stents in right femoral, lithotripsy Alcohol Use: None Drug Use: None Adult General Chief Complaint Chief Complaint: ABDOMINAL PAIN HPI HPI Patient is a 67 year old female who presents with headache simply severe kidney on March 24, 2018 and was discharged on March 25, 2018. Patient states that there assisted called them by this past and nobody called them to have the stent taken out. Patient states they did call the number they gave him but could not get a hold of anybody and nobody called them back. Patient is here today because of intense pain. Patient states she does have burning with urination and have abdominal pain. Patient states she rates her pain a 10 out of 10. Patient states they didn't send her home with any pain medication she she 's been taking [id number] pain medications is not working. Patient states she had nausea vomiting last week but none at this time. Patient had the stent placed by Dr. Russel Adan. Review of Systems Review of Systems Constitutional: Denies fever or chills [] Eyes: Denies change in visual acuity, redness, or eye pain [] HENT: Denies nasal congestion or sore throat [] Respiratory: Denies cough or shortness of breath [] Cardiovascular: No additional information not addressed in HPI [] GI: Abdominal pain. Denies nausea, vomiting, bloody stools or diarrhea [] : Dysuria or hematuria [] Musculoskeletal: Denies back pain or joint pain [] Integument: Denies rash or skin lesions [] Neurologic: Denies headache, focal weakness or sensory changes [] Endocrine: Denies polyuria or polydipsia [] All other systems were reviewed and found to be within normal limits, except as documented in this note. Current Medications Current Medications Current Medications Medications (Trade) Dose Ordered Sig/Flash Start Time Stop Time Status Last Admin Dose Admin Fentanyl Citrate (Fentanyl 2ml Vial) 50 mcg 1X ONCE 03/30/18 14:30 03/30/18 14:35 DC 03/30/18 15:06 50 MCG Ondansetron HCl (Zofran) 4 mg 1X ONCE 03/30/18 14:30 03/30/18 14:35 DC 03/30/18 15:06 4 MG Sodium Chloride 1,000 ml @ 1,000 mls/hr 1X ONCE 03/30/18 15:30 03/30/18 16:29 03/30/18 15:55 1,000 MLS/HR Allergies Allergies Allergies Coded Allergies Type Severity Reaction Last Updated Verified Sulfa (Sulfonamide Antibiotics) Allergy Severe Anaphylaxis 11/15/15 Yes morphine Allergy Severe SWELLS UP AND CAN'T BREATHE 03/30/18 Yes levofloxacin Adverse Reaction Intermediate Nausea 11/15/15 Yes Physical Exam Physical Exam Constitutional: Well developed, well nourished, no acute distress, non-toxic appearance. [] HENT: Normocephalic, atraumatic, bilateral external ears normal, oropharynx moist, no oral exudates, nose normal. [] Eyes: PERRLA, EOMI, conjunctiva normal, no discharge. [] Neck: Normal range of motion, no tenderness, supple, no stridor. [] Cardiovascular:Heart rate regular rhythm, no murmur [] Lungs & Thorax: Bilateral breath sounds clear to auscultation [] Abdomen: Bowel sounds normal, soft, Right and left upper and left lower tenderness, no masses, no pulsatile masses. [] Skin: Warm, dry, no erythema, no rash. [] Back: No tenderness, CVA tenderness. [] Extremities: No tenderness, no cyanosis, no clubbing, ROM intact, no edema. [] Neurologic: Alert and oriented X 3, normal motor function, normal sensory function, no focal deficits noted. [] Psychologic: Affect normal, judgement normal, mood normal. [] Current Patient Data Vital Signs Vital Signs Date Time Temp Pulse Resp B/P (MAP) Pulse Ox O2 Delivery O2 Flow Rate FiO2 03/30/18 15:15 16 98 Nasal Cannula 3.0 03/30/18 15:00 73 175/88 (117) 03/30/18 14:14 98.1 98.1 Lab Values Laboratory Tests Test 03/30/18 14:00 03/30/18 14:57 Urine Collection Type Unknown Urine Color Yellow Urine Clarity Clear Urine pH 6.0 Urine Specific [place] 1.020 Urine Protein 30 mg/dL (NEG-TRACE) Urine Glucose (UA) Negative mg/dL (NEG) Urine Ketones (Stick) Negative mg/dL (NEG) Urine Blood Large (NEG) Urine Nitrite Negative (NEG) Urine Bilirubin Negative (NEG) Urine Urobilinogen Dipstick 0.2 mg/dL (0.2 mg/dL) Urine Leukocyte Esterase Small (NEG) Urine RBC >40 /HPF (0-2) Urine WBC 1-4 /HPF (0-4) Urine Squamous Epithelial Cells Many /LPF Urine Bacteria Few /HPF (0-FEW) Urine Mucus Marked /LPF White Blood Count 10.4 x10^3/uL (4.0-11.0) Red Blood Count 5.21 x10^6/uL (3.50-5.40) Hemoglobin 14.4 g/dL (12.0-15.5) Hematocrit 42.9 % (36.0-47.0) Mean Corpuscular Volume 82 fL (79-100) Mean Corpuscular Hemoglobin 28 pg (25-35) Mean Corpuscular Hemoglobin Concent 33 g/dL (31-37) Red Cell Distribution Width 15.9 % (11.5-14.5) H Platelet Count 206 x10^3/uL (140-400) Neutrophils (%) (Auto) 78 % (31-73) H Lymphocytes (%) (Auto) 14 % (24-48) L Monocytes (%) (Auto) 7 % (0-9) Eosinophils (%) (Auto) 1 % (0-3) Basophils (%) (Auto) 1 % (0-3) Neutrophils # (Auto) 8.1 x10^3uL (1.8-7.7) H Lymphocytes # (Auto) 1.4 x10^3/uL (1.0-4.8) Monocytes # (Auto) 0.7 x10^3/uL (0.0-1.1) Eosinophils # (Auto) 0.1 x10^3/uL (0.0-0.7) Basophils # (Auto) 0.1 x10^3/uL (0.0-0.2) Sodium Level 140 mmol/L (136-145) Potassium Level 4.0 mmol/L (3.5-5.1) Chloride Level 104 mmol/L (98-107) Carbon Dioxide Level 27 mmol/L (21-32) Anion Gap 9 (6-14) Blood Urea Nitrogen 23 mg/dL (7-20) H Creatinine 0.9 mg/dL (0.6-1.0) Estimated GFR (Cockcroft-Gault) 62.5 BUN/Creatinine Ratio 26 (6-20) H Glucose Level 96 mg/dL (70-99) Calcium Level 9.0 mg/dL (8.5-10.1) Total Bilirubin 0.5 mg/dL (0.2-1.0) Aspartate Amino Transferase (AST) 10 U/L (15-37) L Alanine Aminotransferase (ALT) 21 U/L (14-59) Alkaline Phosphatase 108 U/L (46-116) Total Protein 7.4 g/dL (6.4-8.2) Albumin 3.2 g/dL (3.4-5.0) L Albumin/Globulin Ratio 0.8 (1.0-1.7) L Laboratory Tests 03/30/18 14:57 Laboratory Tests 03/30/18 14:57 EKG EKG [] Radiology/Procedures Radiology/Procedures CT ABD PELV Impressions: [facility] [address] [place] [address] IMAGING REPORT Signed PATIENT: NASIM APPIAH ACCOUNT: [id number] : 1950 LOCATION: ER AGE: 67 SEX: F EXAM STATUS: REG ER ORD. PHYSICIAN: LAUREL PRYOR APRN REASON: hx kidney stent placement, needs surgery, extreme pain PROCEDURE: CT ABDOMEN PELVIS WO CONTRAST PQRS Compliance Statement: One or more of the following individualized dose reduction techniques were utilized for this examination: 1. Automated exposure control 2. Adjustment of the mA and/or kV according to patient size 3. Use of iterative reconstruction technique CT ABDOMEN PELVIS WO CONTRAST Clinical Indication: hx kidney stent placement, needs surgery, extreme pain
previous Comparison: CT abdomen and pelvis without contrast, March 21, 2018. Technique: Helical CT imaging of the abdomen and pelvis is performed without IV or oral contrast. Findings: Moderate atelectasis or scarring in the lung bases. Stable mild cardiomegaly. Gallbladder not seen, likely surgically absent. The liver, spleen, and pancreas are normal. 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 Atherosclerotic abdominal aorta, no aneurysm. Staghorn calculi of the left kidney are unchanged. Probable bilateral renal cysts are stable. There is no left hydronephrosis. There is right ureteral stent in appropriate position. Right hydronephrosis has resolved. Right renal calculi at the level the pelvic brim are unchanged. There is another right ureteral calculus just distal to the pelvic brim. No urinary bladder wall thickening. Stomach unremarkable. No dilated small bowel. The rectum is moderately distended with stool. There is no wall thickening. There is diverticulitis of the proximal sigmoid colon. There are severe diverticula in this region. There is moderate surrounding inflammation. No perforation is identified. There is no peridiverticular abscess. Hysterectomy. No pelvic free fluid. Grade 1 anterolisthesis of L4 on L5. IMPRESSION: 1. Diverticulitis of the proximal sigmoid colon. 2. Right ureteral stent, right hydronephrosis has resolved. Right ureteral calculi number approximately 4 and are in similar position. 3. Bilateral nonobstructing renal calculi. 4. Bilateral probable renal cysts are stable. Electronically signed by: Franko Millan MD (03/30/2018 3:51 PM) [facility] DICTATED and SIGNED BY: FRANKO MILLAN MD DATE: 03/30/18 1541 Course & Med Decision Making Course & Med Decision Making Patient is a 67 year old female who presents with headache simply severe kidney on March 24, 2018 and was discharged on March 25, 2018. Patient states that there assisted called them by this past and nobody called them to have the stent taken out. Patient states they did call the number they gave him but could not get a hold of anybody and nobody called them back. Patient is here today because of intense pain. Patient states she does have burning with urination and have abdominal pain. Patient states she rates her pain a 10 out of 10. Patient states they didn't send her home with any pain medication she she 's been taking [id number] pain medications is not working. Patient states she had nausea vomiting last week but none at this time. Patient had the stent placed by Dr. Russel Adan. She is alert and oriented. Skin is pink warm and dry. Patient is rolling back and forth in the bed and extreme pain. Abdomen is tender in the right and left upper quadrant and left lower quadrant but not in the right lower quadrant or mid epigastric. Patient does have CVA tenderness. Patient states she has a history of kidney stones. Patient is allergic to sulfa , Levaquin and morphine. Patient states she she's been taking ibuprofen and Tylenol [id number] but is not helping. Patient has no extremity edema. Her blood work is unremarkable. I did call and talk to Dr. Conn who was on-call and told him about the patient and he states that they did call him and he told them to take pain medication [id number]. He states that if the patient's pain cannot be controlled to bring her in or she has infection to go ahead and bring her into the hospital via medic and they can see her tomorrow. Patient's Urinalysis is not infected. I have spoken Dr Zhou and he states to give Rocephin IV and start fluids and pain medications. CT ABD PELV shows 1. Diverticulitis of the proximal sigmoid colon. 2. Right ureteral stent, right hydronephrosis has resolved. Right ureteral calculi number approximately 4 and are in similar position.3. Bilateral nonobstructing renal calculi. 4. Bilateral probable renal cysts are stable. [] Dragon Disclaimer Dragon Disclaimer This electronic medical record was generated, in whole or in part, using a voice recognition dictation system. Departure Departure Impression: Primary Impression: Stone, kidney Additional Impression: Abdominal pain Disposition: ADMITTED INPATIENT Admitting Physician: Randell Zhou Condition: STABLE Referrals: RANDELL ZHOU MD (PCP) Problem Qualifiers Additional Impression: Abdominal pain Abdominal location: generalized Qualified Codes: R10.84 - Generalized abdominal pain LAUREL PRYOR SAMPLER AND [employer]PARER Mar 30, 2018 16:08
[2018-03-30] MEDS ORDERED: ONDANSETRON PF 4 MG/2 ML VIAL. IV PRN (16:15)
[2018-03-30 17:30] VITALS: BP 189/99
[2018-03-30 19:00] VITALS: BP 127/51
[2018-03-30 20:04] VITALS: BP 127/51
[2018-03-30] MEDS: IV NORMAL SALINE 1000ML BAG 1,000 ML IV SCH (20:26)
[2018-03-30 23:00] VITALS: BP 138/66
[2018-03-30] MEDS: fentaNYL PF VIAL 100 MCG/2 ML VIAL IV PRN (23:04)
[2018-03-31] VITALS (7 sets, daily range): BP systolic 135–181; BP diastolic 59–81
[2018-03-31] MEDS: fentaNYL PF VIAL 100 MCG/2 ML VIAL IV PRN ×3 (09:01→15:41)
[2018-03-31] MEDS: IV NORMAL SALINE 1000ML BAG 1,000 ML IV SCH (09:06)
--- NOTE | 2018-03-31 10:17 | PDOC2 ---
JOSR GRIMALDO [employer] 03/31/18 1017: UROLOGY CONSULT Date of Consult Date of Consult DATE: 03/31/18 TIME: 10:07 Reason for Consult Reason for Consult: Kidney stone, pt of Dr. Ron Identification/Chief Complaint Chief Complaint Kidney stone, flank pain, dysuria Source Source: Caregiver, Chart review, Patient History of Present Illness Reason for Visit: Patient is a patien tof Dr. Ron's. She had a stent inserted for definitive kidney stone management and was supposed to get a phone call from [facility], cherry sorter with [facility] this did not happen. She tried to call our number but ran into some difficulty contacting Dr. Ron also. She started to have a lot of pain yesterday over her left side and her bladder and so she came into the emergency department. She is not sure if she was running fevers, as she did not take her temperature. She denies nausea/vomiting and her pain is somewhat improved, although still present at 5/10 her bladder and right side; this worsens with palpation. She is no longer having dysuria Past Medical History Cardiovascular: AFIB, CAD, CHF, HTN, [place], Other Pulmonary: Bronchitis, COPD, Previously Intubated, Pneumonia CENTRAL NERVOUS SYSTEM: CVA, TIA, Vertigo GI: GERD Musculoskeletal: low back pain, Osteoarthritis, Swelling, Stiffness Renal/: Other Past Surgical History Past Surgical History: Cholecystectomy, Hernia Repair, Hysterectomy, Other Family History Family History: Adopted Social History ALCOHOL: none Drugs: None, Ecstasy Current Medications Current Medications Current Medications Ceftriaxone Sodium 50 ml @ 100 mls/hr 1X ONCE IV Last administered on at 16:26; Start 03/30/18 at 16:15; Stop 03/30/18 at 16:44; Status DC Fentanyl Citrate (Fentanyl 2ml Vial) 50 mcg 1X ONCE IV Last administered on at 15:06; Start 03/30/18 at 14:30; Stop 03/30/18 at 14:35; Status DC Fentanyl Citrate (Fentanyl 2ml Vial) 50 mcg PRN Q2HR PRN IV PAIN Last administered on 03/31/18at 09:01; Start 03/30/18 at 16:15; Stop 03/31/18 at 16 :14 Ondansetron HCl (Zofran) 4 mg 1X ONCE IV Last administered on 03/30/18at 15:06 ; Start 03/30/18 at 14:30; Stop 03/30/18 at 14:35; Status DC Ondansetron HCl (Zofran) 4 mg PRN Q8HRS PRN IV NAUSEA/VOMITING; Start at 16:15; Stop 03/31/18 at 16:14 Sodium Chloride 1,000 ml @ 75 mls/hr [id number] IV Last administered on at 09:06; Start 03/30/18 at 16:08; Stop 03/31/18 at 16:07 Sodium Chloride 1,000 ml @ 1,000 mls/hr 1X ONCE IV Last administered on 03/30at 15:55; Start 03/30/18 at 15:30; Stop 03/30/18 at 16:29; Status DC Allergies Allergies: Coded Allergies: Sulfa (Sulfonamide Antibiotics) (Verified Allergy, Severe, Anaphylaxis, ) morphine (Verified Allergy, Severe, SWELLS UP AND CAN'T BREATHE, 03/30/18) levofloxacin (Verified Adverse Reaction, Intermediate, Nausea, 11/15/15) ROS Review Of Systems: CONSTITUTIONAL: + maybe fever, no chills EYES: No recent changes SKIN: No rash or itching CARDIOVASCULAR: No chest pain, syncope, palpitations, or edema RESPIRATORY: No SOB or cough GASTROINTESTINAL: No nausea, vomiting, + abdominal pain NEUROLOGICAL: No headaches or weakness ENDOCRINE: No cold or heat intolerance GENITOURINARY: + dysuria, improving since medication MUSCULOSKELETAL: No back pain or joint pain LYMPHATICS: No enlarged lymph nodes PSYCHIATRIC: No anxiety or depression Physical Exam Physical Exam: General: Pleasant, no acute distress, well groomed Eyes: conjunctiva anicteric, eyes full range of motion ENT: moist oral mucosa, normal dentition Neck: Trachea midline, no masses Respiratory: unlabored breathing, not using accessory muscles, Abdomen: + tender right side, right flank, tender over the bladder, non tender on the left. Skin: no rashes or skin lesions on visualized skin Psych: normal mood, affect. Alert and oriented x 3. Vitals VITALS Vital Signs Date Time Temp Pulse Resp B/P (MAP) Pulse Ox O2 Delivery O2 Flow Rate FiO2 03/31/18 09:56 Room Air 10/15/18 07:00 98.0 66 20 137/78 (97) 91 98.0 03/30/18 23:04 3.0 Labs Labs Laboratory Tests Test 03/30/18 14:00 03/30/18 14:57 Urine Collection Type Unknown Urine Color Yellow Urine Clarity Clear Urine pH 6.0 Urine Specific [place] 1.020 Urine Protein 30 mg/dL (NEG-TRACE) Urine Glucose (UA) Negative mg/dL (NEG) Urine Ketones (Stick) Negative mg/dL (NEG) Urine Blood Large (NEG) Urine Nitrite Negative (NEG) Urine Bilirubin Negative (NEG) Urine Urobilinogen Dipstick 0.2 mg/dL (0.2 mg/dL) Urine Leukocyte Esterase Small (NEG) Urine RBC >40 /HPF (0-2) Urine WBC 1-4 /HPF (0-4) Urine Squamous Epithelial Cells Many /LPF Urine Bacteria Few /HPF (0-FEW) Urine Mucus Marked /LPF White Blood Count 10.4 x10^3/uL (4.0-11.0) Red Blood Count 5.21 x10^6/uL (3.50-5.40) Hemoglobin 14.4 g/dL (12.0-15.5) Hematocrit 42.9 % (36.0-47.0) Mean Corpuscular Volume 82 fL (79-100) Mean Corpuscular Hemoglobin 28 pg (25-35) Mean Corpuscular Hemoglobin Concent 33 g/dL (31-37) Red Cell Distribution Width 15.9 % (11.5-14.5) Platelet Count 206 x10^3/uL (140-400) Neutrophils (%) (Auto) 78 % (31-73) Lymphocytes (%) (Auto) 14 % (24-48) Monocytes (%) (Auto) 7 % (0-9) Eosinophils (%) (Auto) 1 % (0-3) Basophils (%) (Auto) 1 % (0-3) Neutrophils # (Auto) 8.1 x10^3uL (1.8-7.7) Lymphocytes # (Auto) 1.4 x10^3/uL (1.0-4.8) Monocytes # (Auto) 0.7 x10^3/uL (0.0-1.1) Eosinophils # (Auto) 0.1 x10^3/uL (0.0-0.7) Basophils # (Auto) 0.1 x10^3/uL (0.0-0.2) Sodium Level 140 mmol/L (136-145) Potassium Level 4.0 mmol/L (3.5-5.1) Chloride Level 104 mmol/L (98-107) Carbon Dioxide Level 27 mmol/L (21-32) Anion Gap 9 (6-14) Blood Urea Nitrogen 23 mg/dL (7-20) Creatinine 0.9 mg/dL (0.6-1.0) Estimated GFR (Cockcroft-Gault) 62.5 BUN/Creatinine Ratio 26 (6-20) Glucose Level 96 mg/dL (70-99) Calcium Level 9.0 mg/dL (8.5-10.1) Total Bilirubin 0.5 mg/dL (0.2-1.0) Aspartate Amino Transf (AST/SGOT) 10 U/L (15-37) Alanine Aminotransferase (ALT/SGPT) 21 U/L (14-59) Alkaline Phosphatase 108 U/L (46-116) Total Protein 7.4 g/dL (6.4-8.2) Albumin 3.2 g/dL (3.4-5.0) Albumin/Globulin Ratio 0.8 (1.0-1.7) Laboratory Tests Test 03/30/18 14:00 03/30/18 14:57 Urine Collection Type Unknown Urine Color Yellow Urine Clarity Clear Urine pH 6.0 Urine Specific [place] 1.020 Urine Protein 30 mg/dL (NEG-TRACE) Urine Glucose (UA) Negative mg/dL (NEG) Urine Ketones (Stick) Negative mg/dL (NEG) Urine Blood Large (NEG) Urine Nitrite Negative (NEG) Urine Bilirubin Negative (NEG) Urine Urobilinogen Dipstick 0.2 mg/dL (0.2 mg/dL) Urine Leukocyte Esterase Small (NEG) Urine RBC >40 /HPF (0-2) Urine WBC 1-4 /HPF (0-4) Urine Squamous Epithelial Cells Many /LPF Urine Bacteria Few /HPF (0-FEW) Urine Mucus Marked /LPF White Blood Count 10.4 x10^3/uL (4.0-11.0) Red Blood Count 5.21 x10^6/uL (3.50-5.40) Hemoglobin 14.4 g/dL (12.0-15.5) Hematocrit 42.9 % (36.0-47.0) Mean Corpuscular Volume 82 fL (79-100) Mean Corpuscular Hemoglobin 28 pg (25-35) Mean Corpuscular Hemoglobin Concent 33 g/dL (31-37) Red Cell Distribution Width 15.9 % (11.5-14.5) Platelet Count 206 x10^3/uL (140-400) Neutrophils (%) (Auto) 78 % (31-73) Lymphocytes (%) (Auto) 14 % (24-48) Monocytes (%) (Auto) 7 % (0-9) Eosinophils (%) (Auto) 1 % (0-3) Basophils (%) (Auto) 1 % (0-3) Neutrophils # (Auto) 8.1 x10^3uL (1.8-7.7) Lymphocytes # (Auto) 1.4 x10^3/uL (1.0-4.8) Monocytes # (Auto) 0.7 x10^3/uL (0.0-1.1) Eosinophils # (Auto) 0.1 x10^3/uL (0.0-0.7) Basophils # (Auto) 0.1 x10^3/uL (0.0-0.2) Sodium Level 140 mmol/L (136-145) Potassium Level 4.0 mmol/L (3.5-5.1) Chloride Level 104 mmol/L (98-107) Carbon Dioxide Level 27 mmol/L (21-32) Anion Gap 9 (6-14) Blood Urea Nitrogen 23 mg/dL (7-20) Creatinine 0.9 mg/dL (0.6-1.0) Estimated GFR (Cockcroft-Gault) 62.5 BUN/Creatinine Ratio 26 (6-20) Glucose Level 96 mg/dL (70-99) Calcium Level 9.0 mg/dL (8.5-10.1) Total Bilirubin 0.5 mg/dL (0.2-1.0) Aspartate Amino Transf (AST/SGOT) 10 U/L (15-37) Alanine Aminotransferase (ALT/SGPT) 21 U/L (14-59) Alkaline Phosphatase 108 U/L (46-116) Total Protein 7.4 g/dL (6.4-8.2) Albumin 3.2 g/dL (3.4-5.0) Albumin/Globulin Ratio 0.8 (1.0-1.7) Images Images CT scan done 03/30 IMPRESSION: 1. Diverticulitis of the proximal sigmoid colon. 2. Right ureteral stent, right hydronephrosis has resolved. Right ureteral calculi number approximately 4 and are in similar position. 3. Bilateral nonobstructing renal calculi. 4. Bilateral probable renal cysts are stable. Assessment/Plan Assessment/Plan Non obstructing stones without hydro: Messages sent to Dr. Ron and Becka Lilly [facility] [place]orter for definitive management of patient's stones. Continue antibiotics, IVF. Rocephin ordered for q 24 while in house. When she does go home, should go home on oral antibiotics. Normal diet. Will follow GLENN RON MD 04/01/181944: UROLOGY CONSULT Assessment/Plan Assessment/Plan 67 yo F previously admitted with obstructing right ureteral stones and concerns for sepsis who underwent right ureteral stent placement with plans for outpatient ureteroscopy with laser lithotripsy. Returned to the ED recently given uncontrolled RLQ/RCVA tenderness. Did have a low grade temp on admission but not unremarkable and has been afebrile since while on ceftriaxone. Does not think she can discharge home in her current condition. Will try to find a time to treat her stones. Potentially Th by myself or one of my partners. JOSR GRIMALDO APRN Mar 31, 2018 10:17 GLENN RON MD Apr 01, 2018 19:45
--- NOTE | 2018-03-31 15:08 | PDOC1 ---
History and Physical Date of Admission Date of Admission DATE: 03/31/18 TIME: 14:32 Identification/Chief Complaint Chief Complaint Severe lower abdominal pain Source Source: Patient History of Present Illness History of Present Illness Patient is a pleasant 67 year old white female that presents with chief complaint of lower abdominal pain for 6 days. Pain is described as constant sharp pain in RLQ and LLQ and is 10/10 in severity. Nothing alleviated or aggravated the pain. Patient also experienced nausea, vomiting, and dysuria, but denies hematuria. Past Medical History Cardiovascular: AFIB, CAD, CHF, HTN, [place], Other Pulmonary: Bronchitis, COPD, Previously Intubated, Pneumonia CENTRAL NERVOUS SYSTEM: CVA, TIA, Vertigo GI: GERD Musculoskeletal: low back pain, Osteoarthritis, Swelling, Stiffness Renal/: Other Past Surgical History Past Surgical History: Appendectomy, Cholecystectomy, Hernia Repair, Hysterectomy, Other Family History Family History: Adopted Social History Smoke: No ALCOHOL: none Drugs: None, Ecstasy Current Problem List Problem List Problems Medical Problems: (1) Abdominal pain Status: Acute (2) Stone, kidney Status: Acute Current Medications Current Medications Current Medications Fentanyl Citrate (Fentanyl 2ml Vial) 50 mcg 1X ONCE IV Last administered on at 15:06; Start 03/30/18 at 14:30; Stop 03/30/18 at 14:35; Status DC Ondansetron HCl (Zofran) 4 mg 1X ONCE IV Last administered on 03/30/18at 15:06 ; Start 03/30/18 at 14:30; Stop 03/30/18 at 14:35; Status DC Sodium Chloride 1,000 ml @ 1,000 mls/hr 1X ONCE IV Last administered on 03/30at 15:55; Start 03/30/18 at 15:30; Stop 03/30/18 at 16:29; Status DC Ondansetron HCl (Zofran) 4 mg PRN Q8HRS PRN IV NAUSEA/VOMITING; Start at 16:15; Stop 03/31/18 at 16:14 Fentanyl Citrate (Fentanyl 2ml Vial) 50 mcg PRN Q2HR PRN IV PAIN Last administered on 03/31/18at 11:38; Start 03/30/18 at 16:15; Stop 03/31/18 at 16 :14 Sodium Chloride 1,000 ml @ 75 mls/hr [id number] IV Last administered on at 09:06; Start 03/30/18 at 16:08; Stop 03/31/18 at 16:07 Ceftriaxone Sodium 50 ml @ 100 mls/hr 1X ONCE IV Last administered on at 16:26; Start 03/30/18 at 16:15; Stop 03/30/18 at 16:44; Status DC Ceftriaxone Sodium 1 gm/ Dextrose 50 ml @ 100 mls/hr Q24H IV ; Start 03/31/18 at 14:30; Status UNV Ceftriaxone Sodium (Rocephin) 1 gm Q24H IVP ; Start 03/31/18 at 16:00 Active Scripts Active Reported Simvastatin 20 Mg Tablet 1 Tab PO QHS Famotidine 20 Mg Tablet 20 Mg PO HS Culturelle (Lactobacillus Rhamnosus Gg) 1 Each Cap.sprink 1 Each PO BID Hydrocodone-Apap 7.5-325 (Hydrocodone Bit/Acetaminophen) 1 Each Tablet 1 Tab PO PRN Q6HRS PRN Gabapentin 100 Mg Capsule 1 Cap PO TID Clopidogrel (Clopidogrel Bisulfate) 75 Mg Tablet 1 Tab PO DAILY Carvedilol 12.5 Mg Tablet 1 Tab PO BID Losartan Potassium 100 Mg Tablet 1 Tab PO DAILY Amiodarone Hcl 200 Mg Tablet 1 Tab PO DAILY Allergies Allergies: Coded Allergies: Sulfa (Sulfonamide Antibiotics) (Verified Allergy, Severe, Anaphylaxis, ) morphine (Verified Allergy, Severe, SWELLS UP AND CAN'T BREATHE, 03/30/18) levofloxacin (Verified Adverse Reaction, Intermediate, Nausea, 11/15/15) ROS Gastrointestinal: Yes Nausea, Yes Vomiting, Yes Abdominal Pain Genitourinary: YES Dysuria Physical Exam Physical Exam Abdomen: tender to palpation in RLQ, LLQ, and infraumbilical regions, mildly hypoactive bowel sounds General: Alert, Oriented X3, Cooperative, No acute distress Lungs: Clear to auscultation Heart: S1S2, RRR, no murmurs Cardiovascular: S1, S2 Neuro: Other (right sided weakness unchanged since the last neurological examination. The deficit has been present since her CVA) Vitals Vitals Vital Signs Date Time Temp Pulse Resp B/P (MAP) Pulse Ox O2 Delivery O2 Flow Rate FiO2 03/31/18 12:30 Room Air 03/31/18 11:00 98.1 62 20 137/71 (93) 93 98.1 03/30/18 23:04 3.0 Labs Labs Laboratory Tests Test 03/30/18 14:00 03/30/18 14:57 Urine Collection Type Unknown Urine Color Yellow Urine Clarity Clear Urine pH 6.0 Urine Specific [place] 1.020 Urine Protein 30 mg/dL (NEG-TRACE) Urine Glucose (UA) Negative mg/dL (NEG) Urine Ketones (Stick) Negative mg/dL (NEG) Urine Blood Large (NEG) Urine Nitrite Negative (NEG) Urine Bilirubin Negative (NEG) Urine Urobilinogen Dipstick 0.2 mg/dL (0.2 mg/dL) Urine Leukocyte Esterase Small (NEG) Urine RBC >40 /HPF (0-2) Urine WBC 1-4 /HPF (0-4) Urine Squamous Epithelial Cells Many /LPF Urine Bacteria Few /HPF (0-FEW) Urine Mucus Marked /LPF White Blood Count 10.4 x10^3/uL (4.0-11.0) Red Blood Count 5.21 x10^6/uL (3.50-5.40) Hemoglobin 14.4 g/dL (12.0-15.5) Hematocrit 42.9 % (36.0-47.0) Mean Corpuscular Volume 82 fL (79-100) Mean Corpuscular Hemoglobin 28 pg (25-35) Mean Corpuscular Hemoglobin Concent 33 g/dL (31-37) Red Cell Distribution Width 15.9 % (11.5-14.5) Platelet Count 206 x10^3/uL (140-400) Neutrophils (%) (Auto) 78 % (31-73) Lymphocytes (%) (Auto) 14 % (24-48) Monocytes (%) (Auto) 7 % (0-9) Eosinophils (%) (Auto) 1 % (0-3) Basophils (%) (Auto) 1 % (0-3) Neutrophils # (Auto) 8.1 x10^3uL (1.8-7.7) Lymphocytes # (Auto) 1.4 x10^3/uL (1.0-4.8) Monocytes # (Auto) 0.7 x10^3/uL (0.0-1.1) Eosinophils # (Auto) 0.1 x10^3/uL (0.0-0.7) Basophils # (Auto) 0.1 x10^3/uL (0.0-0.2) Sodium Level 140 mmol/L (136-145) Potassium Level 4.0 mmol/L (3.5-5.1) Chloride Level 104 mmol/L (98-107) Carbon Dioxide Level 27 mmol/L (21-32) Anion Gap 9 (6-14) Blood Urea Nitrogen 23 mg/dL (7-20) Creatinine 0.9 mg/dL (0.6-1.0) Estimated GFR (Cockcroft-Gault) 62.5 BUN/Creatinine Ratio 26 (6-20) Glucose Level 96 mg/dL (70-99) Calcium Level 9.0 mg/dL (8.5-10.1) Total Bilirubin 0.5 mg/dL (0.2-1.0) Aspartate Amino Transf (AST/SGOT) 10 U/L (15-37) Alanine Aminotransferase (ALT/SGPT) 21 U/L (14-59) Alkaline Phosphatase 108 U/L (46-116) Total Protein 7.4 g/dL (6.4-8.2) Albumin 3.2 g/dL (3.4-5.0) Albumin/Globulin Ratio 0.8 (1.0-1.7) Laboratory Tests Test 03/30/18 14:57 White Blood Count 10.4 x10^3/uL (4.0-11.0) Red Blood Count 5.21 x10^6/uL (3.50-5.40) Hemoglobin 14.4 g/dL (12.0-15.5) Hematocrit 42.9 % (36.0-47.0) Mean Corpuscular Volume 82 fL (79-100) Mean Corpuscular Hemoglobin 28 pg (25-35) Mean Corpuscular Hemoglobin Concent 33 g/dL (31-37) Red Cell Distribution Width 15.9 % (11.5-14.5) Platelet Count 206 x10^3/uL (140-400) Neutrophils (%) (Auto) 78 % (31-73) Lymphocytes (%) (Auto) 14 % (24-48) Monocytes (%) (Auto) 7 % (0-9) Eosinophils (%) (Auto) 1 % (0-3) Basophils (%) (Auto) 1 % (0-3) Neutrophils # (Auto) 8.1 x10^3uL (1.8-7.7) Lymphocytes # (Auto) 1.4 x10^3/uL (1.0-4.8) Monocytes # (Auto) 0.7 x10^3/uL (0.0-1.1) Eosinophils # (Auto) 0.1 x10^3/uL (0.0-0.7) Basophils # (Auto) 0.1 x10^3/uL (0.0-0.2) Sodium Level 140 mmol/L (136-145) Potassium Level 4.0 mmol/L (3.5-5.1) Chloride Level 104 mmol/L (98-107) Carbon Dioxide Level 27 mmol/L (21-32) Anion Gap 9 (6-14) Blood Urea Nitrogen 23 mg/dL (7-20) Creatinine 0.9 mg/dL (0.6-1.0) Estimated GFR (Cockcroft-Gault) 62.5 BUN/Creatinine Ratio 26 (6-20) Glucose Level 96 mg/dL (70-99) Calcium Level 9.0 mg/dL (8.5-10.1) Total Bilirubin 0.5 mg/dL (0.2-1.0) Aspartate Amino Transf (AST/SGOT) 10 U/L (15-37) Alanine Aminotransferase (ALT/SGPT) 21 U/L (14-59) Alkaline Phosphatase 108 U/L (46-116) Total Protein 7.4 g/dL (6.4-8.2) Albumin 3.2 g/dL (3.4-5.0) Albumin/Globulin Ratio 0.8 (1.0-1.7) VTE Prophylaxis Ordered VTE Prophylaxis Devices: No VTE Pharmacological Prophylaxi: Yes Assessment/Plan Assessment/Plan Non obstructing nephrolithiasis without hydronephrosis Continue current course of antibiotics and IV fluids Suspect bacterial cause for recurring nephrolithiasis and recommend patient continue Rocephin x3 days before undergoing cystoscopy or other urologic procedures DARRICK PINTO MD Mar 31, 2018 15:08
[2018-03-31] MEDS: cefTRIAXone IV Push 1 GM VIAL. IVP SCH (15:40)
[2018-03-31] MEDS: CARVEDILOL 12.5 MG TABLET. PO SCH (16:56)
[2018-03-31] MEDS: CLOPIDOGREL BISULFATE 75 MG TABLET PO SCH (16:56)
[2018-03-31] MEDS: AMIODARONE HCL 200 MG TABLET. PO SCH (16:56)
[2018-03-31] MEDS: HYDROcodone/APAP 7.5/325MG 1 TAB TABLET PO PRN ×2 (16:57→23:08)
[2018-03-31] MEDS: LOSARTAN POTASSIUM 50 MG TABLET. PO SCH (16:57)
[2018-03-31] MEDS: FAMOTIDINE 20 MG TABLET. PO SCH (20:02)
[2018-03-31] MEDS: GABAPENTIN 100 MG CAPSULE. PO SCH (20:02)
[2018-03-31] MEDS: LACTOBACILLUS RHAMNOSUS GG 1 CAPSULE. PO SCH (20:02)
[2018-03-31] MEDS: DOCUSATE SODIUM 100 MG CAPSULE. PO SCH (20:02)
[2018-03-31] MEDS: SIMVASTATIN 20 MG TABLET PO SCH (20:02)
[2018-04-01] VITALS (7 sets, daily range): BP systolic 127–206; BP diastolic 65–104
[2018-04-01] MEDS: HYDROcodone/APAP 7.5/325MG 1 TAB TABLET PO PRN ×2 (05:33→20:23)
[2018-04-01] MEDS: fentaNYL PF VIAL 100 MCG/2 ML VIAL IV PRN ×4 (07:37→17:34)
[2018-04-01] MEDS: IV NORMAL SALINE 1000ML BAG 1,000 ML IV SCH ×2 (08:18→20:23)
[2018-04-01] MEDS: DOCUSATE SODIUM 100 MG CAPSULE. PO SCH ×2 (08:18→20:22)
[2018-04-01] MEDS: LOSARTAN POTASSIUM 50 MG TABLET. PO SCH (08:19)
[2018-04-01] MEDS: LACTOBACILLUS RHAMNOSUS GG 1 CAPSULE. PO SCH ×2 (08:20→20:23)
[2018-04-01] MEDS: CLOPIDOGREL BISULFATE 75 MG TABLET PO SCH (08:20)
[2018-04-01] MEDS: CARVEDILOL 12.5 MG TABLET. PO SCH ×2 (08:20→16:31)
[2018-04-01] MEDS: GABAPENTIN 100 MG CAPSULE. PO SCH ×3 (08:21→20:22)
[2018-04-01] MEDS: AMIODARONE HCL 200 MG TABLET. PO SCH (08:21)
[2018-04-01] MEDS: LABETALOL 20 MG/4 ML DISP.SYRIN. IVP PRN (09:24)
--- NOTE | 2018-04-01 09:36 | PDOC ---
PROGRESS NOTES Subjective Subjective Patient is nauseous this am. Vomited shortly after receiving PO carvedilol, losartan, and amiodarone. Patient also developed hypertensive episode this am with BP of 206/104. She has not had a bowel movement in 4 days. Objective Objective Vital Signs Date Time Temp Pulse Resp B/P (MAP) Pulse Ox O2 Delivery O2 Flow Rate FiO2 04/01/18 08:21 Room Air 04/01/18 08:21 67 206/104 04/01/18 07:00 97.8 24 93 97.8 04/01/18 03:00 3.0 Intake and Output 04/01/18 07:00 Intake Total 1540 ml Output Total 800 ml Balance 740 ml Intake Oral 540 ml IV Total 1000 ml Output Urine Total 800 ml # Voids 5 Physical Exam Physical Exam no significant change in cardiac and abdominal exam Assessment Assessment Problems Medical Problems: (1) Abdominal pain Status: Acute (2) Stone, kidney Status: Acute Plan Plan of Care Non obstructing nephrolithiasis without hydronephrosis Continue current course of antibiotics and IV fluids Suspect bacterial cause for recurring nephrolithiasis and recommend patient continue Rocephin x3 days before undergoing cystoscopy or other urologic procedures IV labetalol for HTN Continue Colace for constipation Comment Review of Relevant I have reviewed the following items [place] (where applicable) has been applied. Labs Laboratory Tests Test 03/30/18 14:00 03/30/18 14:57 Urine Collection Type Unknown Urine Color Yellow Urine Clarity Clear Urine pH 6.0 Urine Specific [place] 1.020 Urine Protein 30 mg/dL (NEG-TRACE) Urine Glucose (UA) Negative mg/dL (NEG) Urine Ketones (Stick) Negative mg/dL (NEG) Urine Blood Large (NEG) Urine Nitrite Negative (NEG) Urine Bilirubin Negative (NEG) Urine Urobilinogen Dipstick 0.2 mg/dL (0.2 mg/dL) Urine Leukocyte Esterase Small (NEG) Urine RBC >40 /HPF (0-2) Urine WBC 1-4 /HPF (0-4) Urine Squamous Epithelial Cells Many /LPF Urine Bacteria Few /HPF (0-FEW) Urine Mucus Marked /LPF White Blood Count 10.4 x10^3/uL (4.0-11.0) Red Blood Count 5.21 x10^6/uL (3.50-5.40) Hemoglobin 14.4 g/dL (12.0-15.5) Hematocrit 42.9 % (36.0-47.0) Mean Corpuscular Volume 82 fL (79-100) Mean Corpuscular Hemoglobin 28 pg (25-35) Mean Corpuscular Hemoglobin Concent 33 g/dL (31-37) Red Cell Distribution Width 15.9 % (11.5-14.5) Platelet Count 206 x10^3/uL (140-400) Neutrophils (%) (Auto) 78 % (31-73) Lymphocytes (%) (Auto) 14 % (24-48) Monocytes (%) (Auto) 7 % (0-9) Eosinophils (%) (Auto) 1 % (0-3) Basophils (%) (Auto) 1 % (0-3) Neutrophils # (Auto) 8.1 x10^3uL (1.8-7.7) Lymphocytes # (Auto) 1.4 x10^3/uL (1.0-4.8) Monocytes # (Auto) 0.7 x10^3/uL (0.0-1.1) Eosinophils # (Auto) 0.1 x10^3/uL (0.0-0.7) Basophils # (Auto) 0.1 x10^3/uL (0.0-0.2) Sodium Level 140 mmol/L (136-145) Potassium Level 4.0 mmol/L (3.5-5.1) Chloride Level 104 mmol/L (98-107) Carbon Dioxide Level 27 mmol/L (21-32) Anion Gap 9 (6-14) Blood Urea Nitrogen 23 mg/dL (7-20) Creatinine 0.9 mg/dL (0.6-1.0) Estimated GFR (Cockcroft-Gault) 62.5 BUN/Creatinine Ratio 26 (6-20) Glucose Level 96 mg/dL (70-99) Calcium Level 9.0 mg/dL (8.5-10.1) Total Bilirubin 0.5 mg/dL (0.2-1.0) Aspartate Amino Transf (AST/SGOT) 10 U/L (15-37) Alanine Aminotransferase (ALT/SGPT) 21 U/L (14-59) Alkaline Phosphatase 108 U/L (46-116) Total Protein 7.4 g/dL (6.4-8.2) Albumin 3.2 g/dL (3.4-5.0) Albumin/Globulin Ratio 0.8 (1.0-1.7) Medications Current Medications Fentanyl Citrate (Fentanyl 2ml Vial) 50 mcg 1X ONCE IV Last administered on at 15:06; Start 03/30/18 at 14:30; Stop 03/30/18 at 14:35; Status DC Ondansetron HCl (Zofran) 4 mg 1X ONCE IV Last administered on 03/30/18at 15:06 ; Start 03/30/18 at 14:30; Stop 03/30/18 at 14:35; Status DC Sodium Chloride 1,000 ml @ 1,000 mls/hr 1X ONCE IV Last administered on 03/30at 15:55; Start 03/30/18 at 15:30; Stop 03/30/18 at 16:29; Status DC Ondansetron HCl (Zofran) 4 mg PRN Q8HRS PRN IV NAUSEA/VOMITING; Start at 16:15; Stop 03/31/18 at 16:15; Status DC Fentanyl Citrate (Fentanyl 2ml Vial) 50 mcg PRN Q2HR PRN IV PAIN Last administered on 03/31/18at 15:41; Start 03/30/18 at 16:15; Stop 03/31/18 at 16 :15; Status DC Sodium Chloride 1,000 ml @ 75 mls/hr [id number] IV Last administered on at 09:06; Start 03/30/18 at 16:08; Stop 03/31/18 at 16:07; Status DC Ceftriaxone Sodium 50 ml @ 100 mls/hr 1X ONCE IV Last administered on at 16:26; Start 03/30/18 at 16:15; Stop 03/30/18 at 16:44; Status DC Ceftriaxone Sodium 1 gm/ Dextrose 50 ml @ 100 mls/hr Q24H IV ; Start 03/31/18 at 14:30; Status UNV Ceftriaxone Sodium (Rocephin) 1 gm Q24H IVP Last administered on 03/31/18at 15: 40; Start 03/31/18 at 16:00 Amiodarone HCl (Cordarone) 200 mg DAILY PO Last administered on 04/01/18at 08: 21; Start 03/31/18 at 17:00 Carvedilol (Coreg) 12.5 mg BIDWMEALS PO Last administered on 04/01/18at 08:20; Start 03/31/18 at 17:00 Clopidogrel Bisulfate (Plavix) 75 mg DAILY PO Last administered on 04/01/18at 08:20; Start 03/31/18 at 17:00 Famotidine (Pepcid) 20 mg HS PO Last administered on 03/31/18at 20:02; Start 03/31/18 at 21:00 Acetaminophen/ Hydrocodone Bitart (Lortab 7.5/325) 1 tab PRN Q6HRS PRN PO PAIN Last administered on 04/01/18at 05:33; Start 03/31/18 at 16:15 Lactobacillus Rhamnosus (Culturelle) 1 cap BID PO Last administered on at 08:20; Start 03/31/18 at 21:00 Gabapentin (Neurontin) 100 mg TID PO Last administered on 04/01/18at 08:21; Start 03/31/18 at 21:00 Losartan Potassium (Cozaar) 100 mg DAILY PO Last administered on 04/01/18at 08: 19; Start 03/31/18 at 17:00 Simvastatin (Zocor) 20 mg HS PO Last administered on 03/31/18at 20:02; Start 03/31/18 at 21:00 Docusate Sodium (Colace) 100 mg BID PO Last administered on 04/01/18at 08:18; Start 03/31/18 at 21:00 Fentanyl Citrate (Fentanyl 2ml Vial) 50 mcg PRN Q2HR PRN IV PAIN Last administered on 04/01/18at 07:37; Start 04/01/18 at 07:15 Sodium Chloride 1,000 ml @ 75 mls/hr [id number] IV Last administered on at 08:18; Start 04/01/18 at 07:15 Labetalol HCl (Normodyne Iv Push) 10 mg PRN Q4HRS PRN IVP HYPERTENSION, SEE COMMENTS; Start 04/01/18 at 09:15 Active Scripts Active Reported Simvastatin 20 Mg Tablet 1 Tab PO QHS Famotidine 20 Mg Tablet 20 Mg PO HS Culturelle (Lactobacillus Rhamnosus Gg) 1 Each Cap.sprink 1 Each PO BID Hydrocodone-Apap 7.5-325 (Hydrocodone Bit/Acetaminophen) 1 Each Tablet 1 Tab PO PRN Q6HRS PRN Gabapentin 100 Mg Capsule 1 Cap PO TID Clopidogrel (Clopidogrel Bisulfate) 75 Mg Tablet 1 Tab PO DAILY Carvedilol 12.5 Mg Tablet 1 Tab PO BID Losartan Potassium 100 Mg Tablet 1 Tab PO DAILY Amiodarone Hcl 200 Mg Tablet 1 Tab PO DAILY Vitals/I & O Vital Sign - Last 24 Hours 03/31/18 03/31/18 03/31/18 03/31/18 11:00 11:38 12:30 15:03 Temp 98.1 97.0 98.1 97.0 Pulse 62 71 Resp 20 20 B/P (MAP) 137/71 (93) 181/65 (103) Pulse Ox 93 94 O2 Delivery Room Air Room Air Room Air Room Air 03/31/18 03/31/18 03/31/18 03/31/18 15:41 16:15 16:56 16:56 Pulse 64 64 64 B/P (MAP) 166/81 (109) 166/81 166/81 O2 Delivery Room Air 03/31/18 03/31/18 03/31/18 03/31/18 16:57 16:57 18:55 19:31 Temp 97.5 97.5 Pulse 64 67 Resp 20 B/P (MAP) 166/81 147/67 (93) Pulse Ox 92 O2 Delivery Room Air Room Air Room Air 03/31/18 03/31/18 03/31/18 04/01/18 20:00 23:00 23:08 03:00 Temp 97.6 97.6 97.6 97.6 Pulse 55 60 Resp 18 18 B/P (MAP) 162/78 (106) 151/72 (98) Pulse Ox 94 96 O2 Delivery Room Air Room Air Room Air Room Air O2 Flow Rate 3.0 04/01/18 04/01/18 04/01/18 04/01/18 05:33 07:00 07:37 08:05 Temp 97.8 97.8 Pulse 67 Resp 24 B/P (MAP) 206/104 (138) Pulse Ox 93 O2 Delivery Room Air Room Air Room Air Room Air 04/01/18 04/01/18 04/01/18 04/01/18 08:19 08:20 08:21 08:21 Pulse 67 67 67 B/P (MAP) 206/104 206/104 206/104 O2 Delivery Room Air Intake and Output 03/31/18 03/31/18 04/01/18 15:00 23:00 07:00 Intake Total 540 ml 1000 ml Output Total 800 ml Balance 540 ml 200 ml DARRICK PINTO MD Apr 01, 2018 09:36
[2018-04-01] MEDS: ONDANSETRON PF 4 MG/2 ML VIAL. IV PRN (13:42)
[2018-04-01] MEDS: cefTRIAXone IV Push 1 GM VIAL. IVP SCH (16:30)
[2018-04-01] MEDS: SIMVASTATIN 20 MG TABLET PO SCH (20:22)
[2018-04-01] MEDS: FAMOTIDINE 20 MG TABLET. PO SCH (20:22)
[2018-04-02 03:00] VITALS: BP 139/71
[2018-04-02 07:00] VITALS: BP 156/84
[2018-04-02] MEDS: DOCUSATE SODIUM 100 MG CAPSULE. PO SCH ×2 (09:02→20:40)
[2018-04-02] MEDS: CLOPIDOGREL BISULFATE 75 MG TABLET PO SCH (09:02)
[2018-04-02] MEDS: LACTOBACILLUS RHAMNOSUS GG 1 CAPSULE. PO SCH ×2 (09:02→20:42)
[2018-04-02] MEDS: CARVEDILOL 12.5 MG TABLET. PO SCH ×2 (09:03→17:28)
[2018-04-02] MEDS: AMIODARONE HCL 200 MG TABLET. PO SCH (09:03)
[2018-04-02] MEDS: HYDROcodone/APAP 7.5/325MG 1 TAB TABLET PO PRN ×3 (09:04→21:51)
[2018-04-02] MEDS: GABAPENTIN 100 MG CAPSULE. PO SCH ×3 (09:04→20:40)
[2018-04-02] MEDS: LOSARTAN POTASSIUM 50 MG TABLET. PO SCH (09:05)
[2018-04-02] MEDS: IV NORMAL SALINE 1000ML BAG 1,000 ML IV SCH ×2 (09:06→20:41)
--- NOTE | 2018-04-02 09:46 | PDOC ---
PROGRESS NOTES Subjective Subjective Patient sitting up in chair this morning. No longer nauseous. Hypertensive urgency episode has resolved. She continues to have abdominal pain, currently rates it 7/10. No bowel movement in 5 days. Objective Objective Vital Signs Date Time Temp Pulse Resp B/P (MAP) Pulse Ox O2 Delivery O2 Flow Rate FiO2 04/02/18 09:05 63 156/84 04/02/18 09:04 Room Air 04/02/18 03:00 97.6 18 95 97.6 04/01/18 11:15 3.0 Intake and Output 04/02/18 07:00 Intake Total 1380 ml Output Total 850 ml Balance 530 ml Intake Oral 1380 ml Output Urine Total 850 ml Physical Exam Physical Exam No significant changes in cardiac or abdominal exam Assessment Assessment Problems Medical Problems: (1) Abdominal pain Status: Acute (2) Stone, kidney Status: Acute Plan Plan of Care Non obstructing nephrolithiasis without hydronephrosis Continue current course of antibiotics and IV fluids Patient has been on antibiotics for 3 days, may consider cystoscopy Continue Colace for constipation Comment Review of Relevant I have reviewed the following items [place] (where applicable) has been applied. Labs Microbiology 03/30/18 Urine Culture - Final, Complete 03/30/18 Urine Culture Result 1 ([facility]) - Final, Complete Medications Current Medications Fentanyl Citrate (Fentanyl 2ml Vial) 50 mcg 1X ONCE IV Last administered on at 15:06; Start 03/30/18 at 14:30; Stop 03/30/18 at 14:35; Status DC Ondansetron HCl (Zofran) 4 mg 1X ONCE IV Last administered on 03/30/18at 15:06 ; Start 03/30/18 at 14:30; Stop 03/30/18 at 14:35; Status DC Sodium Chloride 1,000 ml @ 1,000 mls/hr 1X ONCE IV Last administered on 03/30at 15:55; Start 03/30/18 at 15:30; Stop 03/30/18 at 16:29; Status DC Ondansetron HCl (Zofran) 4 mg PRN Q8HRS PRN IV NAUSEA/VOMITING; Start at 16:15; Stop 03/31/18 at 16:15; Status DC Fentanyl Citrate (Fentanyl 2ml Vial) 50 mcg PRN Q2HR PRN IV PAIN Last administered on 03/31/18at 15:41; Start 03/30/18 at 16:15; Stop 03/31/18 at 16 :15; Status DC Sodium Chloride 1,000 ml @ 75 mls/hr [id number] IV Last administered on at 09:06; Start 03/30/18 at 16:08; Stop 03/31/18 at 16:07; Status DC Ceftriaxone Sodium 50 ml @ 100 mls/hr 1X ONCE IV Last administered on at 16:26; Start 03/30/18 at 16:15; Stop 03/30/18 at 16:44; Status DC Ceftriaxone Sodium 1 gm/ Dextrose 50 ml @ 100 mls/hr Q24H IV ; Start 03/31/18 at 14:30; Status UNV Ceftriaxone Sodium (Rocephin) 1 gm Q24H IVP Last administered on 04/01/18 16: 30; Start 03/31/18 at 16:00 Amiodarone HCl (Cordarone) 200 mg DAILY PO Last administered on 04/02/18 09: 03; Start 03/31/18 at 17:00 Carvedilol (Coreg) 12.5 mg BIDWMEALS PO Last administered on 04/02/18 09:03; Start 03/31/18 at 17:00 Clopidogrel Bisulfate (Plavix) 75 mg DAILY PO Last administered on 04/02/18at 09:02; Start 03/31/18 at 17:00 Famotidine (Pepcid) 20 mg HS PO Last administered on 04/01/18at 20:22; Start 03/31/18 at 21:00 Acetaminophen/ Hydrocodone Bitart (Lortab 7.5/325) 1 tab PRN Q6HRS PRN PO PAIN Last administered on 04/02/18 09:04; Start 03/31/18 at 16:15 Lactobacillus Rhamnosus (Culturelle) 1 cap BID PO Last administered on at 09:02; Start 03/31/18 at 21:00 Gabapentin (Neurontin) 100 mg TID PO Last administered on 04/02/18 09:04; Start 03/31/18 at 21:00 Losartan Potassium (Cozaar) 100 mg DAILY PO Last administered on 04/02/18at 09: 05; Start 03/31/18 at 17:00 Simvastatin (Zocor) 20 mg HS PO Last administered on 04/01/18at 20:22; Start 03/31/18 at 21:00 Docusate Sodium (Colace) 100 mg BID PO Last administered on 04/02/18at 09:02; Start 03/31/18 at 21:00 Fentanyl Citrate (Fentanyl 2ml Vial) 50 mcg PRN Q2HR PRN IV PAIN Last administered on 04/01/18at 17:34; Start 04/01/18 at 07:15 Sodium Chloride 1,000 ml @ 75 mls/hr [id number] IV Last administered on at 09:06; Start 04/01/18 at 07:15 Labetalol HCl (Normodyne Iv Push) 10 mg PRN Q4HRS PRN IVP HYPERTENSION, SEE COMMENTS Last administered on 04/01/18at 09:24; Start 04/01/18 at 09:15 Ondansetron HCl (Zofran) 4 mg PRN Q6HRS PRN IV NAUSEA/VOMITING Last administered on 04/01/18at 13:42; Start 04/01/18 at 13:15 Active Scripts Active Reported Simvastatin 20 Mg Tablet 1 Tab PO QHS Famotidine 20 Mg Tablet 20 Mg PO HS Culturelle (Lactobacillus Rhamnosus Gg) 1 Each Cap.sprink 1 Each PO BID Hydrocodone-Apap 7.5-325 (Hydrocodone Bit/Acetaminophen) 1 Each Tablet 1 Tab PO PRN Q6HRS PRN Gabapentin 100 Mg Capsule 1 Cap PO TID Clopidogrel (Clopidogrel Bisulfate) 75 Mg Tablet 1 Tab PO DAILY Carvedilol 12.5 Mg Tablet 1 Tab PO BID Losartan Potassium 100 Mg Tablet 1 Tab PO DAILY Amiodarone Hcl 200 Mg Tablet 1 Tab PO DAILY Vitals/I & O Vital Sign - Last 24 Hours 04/01/18 04/01/18 04/01/18 04/01/18 10:08 11:15 11:35 13:42 Temp 97.7 97.7 Pulse 64 60 Resp 20 B/P (MAP) 132/65 (87) 131/65 (87) Pulse Ox 95 O2 Delivery Room Air Room Air O2 Flow Rate 3.0 04/01/18 04/01/18 04/01/18 04/01/18 15:00 16:31 17:34 18:10 Temp 97.3 97.3 Pulse 60 61 Resp 16 B/P (MAP) 127/68 (87) 145/75 Pulse Ox 93 O2 Delivery Room Air Room Air Room Air 04/01/18 04/01/18 04/01/18 04/01/18 19:00 20:00 20:23 21:23 Temp 98.1 98.1 Pulse 59 Resp 20 19 18 B/P (MAP) 162/79 (106) Pulse Ox 92 94 94 O2 Delivery Room Air Room Air Room Air Room Air 04/01/18 04/02/18 04/02/18 04/02/18 23:00 03:00 09:03 09:03 Temp 98.0 97.6 98.0 97.6 Pulse 57 59 63 63 Resp 20 18 B/P (MAP) 140/79 (99) 139/71 (93) 156/86 156/84 Pulse Ox 93 95 O2 Delivery Room Air Room Air 04/02/18 04/02/18 09:04 09:05 Pulse 63 B/P (MAP) 156/84 O2 Delivery Room Air Intake and Output 04/01/18 04/01/18 04/02/18 15:00 23:00 07:00 Intake Total 100 ml 240 ml 1040 ml Output Total 150 ml 700 ml Balance 100 ml 90 ml 340 ml DARRICK PINTO MD Apr 02, 2018 09:46
[2018-04-02 11:13] VITALS: BP 165/85
--- NOTE | 2018-04-02 12:00 | PDOC ---
SUBJECTIVE Subjective Pt still having quite a bit of left sided pain. Medication helps for a little bit but the pain then comes back. Also having some dysuria. OBJECTIVE Objective Physical Exam: General appearance: Alert and Oriented. Pt sitting up, eating lunch. Head: Normocephalic, without obvious abnormality Eyes: conjunctivae/corneas clear. PERRL, EOM's intact. Fundi benign Lungs: regular respirations, non labored breathing. Vital Signs Vital Signs Date Time Temp Pulse Resp B/P (MAP) Pulse Ox O2 Delivery O2 Flow Rate FiO2 04/02/18 11:13 99.2 59 20 165/85 (111) 94 Room Air 99.2 04/02/18 10:11 Room Air 04/02/18 09:05 63 156/84 04/02/18 09:04 Room Air 04/02/18 09:03 63 156/84 04/02/18 09:03 63 156/86 04/02/18 07:00 97.4 63 20 156/84 (108) 95 Room Air 97.4 04/02/18 03:00 97.6 59 18 139/71 (93) 95 Room Air 97.6 04/01/18 23:00 98.0 57 20 140/79 (99) 93 Room Air 98.0 04/01/18 21:23 18 94 04/01/18 20:23 19 94 Room Air 04/01/18 20:00 Room Air 04/01/18 19:00 98.1 59 20 162/79 (106) 92 Room Air 98.1 04/01/18 18:10 Room Air 04/01/18 17:34 Room Air 04/01/18 16:31 61 145/75 04/01/18 15:00 97.3 60 16 127/68 (87) 93 Room Air 97.3 04/01/18 13:42 Room Air I & O Intake and Output 04/02/18 07:00 Intake Total 1380 ml Output Total 850 ml Balance 530 ml Intake Oral 1380 ml Output Urine Total 850 ml PHYSICAL EXAM Physical Exam General appearance: Alert and Oriented. Pt sitting up, eating lunch. Head: Normocephalic, without obvious abnormality Eyes: conjunctivae/corneas clear. PERRL, EOM's intact. Fundi benign Lungs: regular respirations, non labored breathing. ASSESSMENT/PLAN Assessment/Plan Pt may eat today NPO at midnight tonight for procedure at [address] Swanson [place] [facility] [place]. Continue pain medications. Add Pyridium TID PRN irritation/stent discomfort Add Flomax 0.4 mg for stent discomfort. Will follow. Problems: (1) Nephrolithiasis JOSR GRIMALDO APRN Apr 02, 2018 12:00
[2018-04-02] MEDS: TAMSULOSIN 0.4 MG CAP.ER.24H. PO SCH (13:17)
[2018-04-02] MEDS: PHENAZOPYRIDINE 200 MG TABLET. PO PRN ×2 (13:20→20:40)
[2018-04-02 15:00] VITALS: BP 156/82
[2018-04-02] MEDS: cefTRIAXone IV Push 1 GM VIAL. IVP SCH (15:22)
[2018-04-02 19:00] VITALS: BP 168/88
[2018-04-02] MEDS: SIMVASTATIN 20 MG TABLET PO SCH (20:40)
[2018-04-02] MEDS: FAMOTIDINE 20 MG TABLET. PO SCH (20:40)
[2018-04-02] MEDS: ONDANSETRON PF 4 MG/2 ML VIAL. IV PRN (20:40)
[2018-04-02 23:00] VITALS: BP 144/79
[2018-04-03 03:00] VITALS: BP 150/82
[2018-04-03 07:00] VITALS: BP 177/94
[2018-04-03] MEDS ORDERED: LIDOCAINE 1% PF 2 ML VIAL. ID PRN ×2 (07:00→12:45)
[2018-04-03] MEDS ORDERED: IV RINGERS,LACTATED 1000ML 1,000 ML IV SCH ×2 (07:00→12:42)
[2018-04-03] MEDS ORDERED: fentaNYL PF VIAL 100 MCG/2 ML VIAL IV PRN ×4 (07:00→12:45)
[2018-04-03] MEDS ORDERED: PROCHLORPERAZINE 10 MG/2 ML VIAL. IV PRN ×2 (07:00→12:45)
[2018-04-03] MEDS ORDERED: ONDANSETRON PF 4 MG/2 ML VIAL. IV PRN ×2 (07:00→12:45)
[2018-04-03] MEDS: CARVEDILOL 12.5 MG TABLET. PO SCH ×2 (08:00→17:48)
[2018-04-03] MEDS: LOSARTAN POTASSIUM 50 MG TABLET. PO SCH (08:34)
[2018-04-03] MEDS: DOCUSATE SODIUM 100 MG CAPSULE. PO SCH ×2 (08:34→19:53)
[2018-04-03] MEDS: AMIODARONE HCL 200 MG TABLET. PO SCH (08:34)
[2018-04-03] MEDS: LACTOBACILLUS RHAMNOSUS GG 1 CAPSULE. PO SCH ×2 (08:35→19:54)
[2018-04-03] MEDS: CLOPIDOGREL BISULFATE 75 MG TABLET PO SCH (08:35)
[2018-04-03] MEDS: TAMSULOSIN 0.4 MG CAP.ER.24H. PO SCH (08:35)
[2018-04-03] MEDS: GABAPENTIN 100 MG CAPSULE. PO SCH ×3 (08:35→19:53)
[2018-04-03] MEDS: fentaNYL PF VIAL 100 MCG/2 ML VIAL IV PRN ×2 (09:03→23:28)
[2018-04-03 11:00] VITALS: BP 187/98
[2018-04-03] MEDS ORDERED: LIDOCAINE 2% JELLY 6ML IN APPLICATOR. ONE (12:00)
[2018-04-03] MEDS ORDERED: IOHEXOL 300 MG/ML 100ML VIAL. ONE (12:00)
[2018-04-03] MEDS: IV NORMAL SALINE 1000ML BAG 1,000 ML IV SCH ×2 (12:45→23:28)
[2018-04-03] MEDS ORDERED: MORPHINE SULFATE 2 MG/ML VIAL. IV PRN (12:45)
[2018-04-03] MEDS ORDERED: HYDROmorphone 2 MG/ML VIAL IV PRN (12:45)
[2018-04-03] MEDS ORDERED: PROPOFOL 20 ML IV ONE (12:47)
[2018-04-03] MEDS ORDERED: LIDOCAINE 2% PF Vial for OR 5 ML VIAL. ONE (12:47)
[2018-04-03] MEDS ORDERED: ONDANSETRON PF 4 MG/2 ML VIAL. ONE (12:47)
[2018-04-03] MEDS ORDERED: DEXAMETHASONE SOD PHOS 20 MG/5 ML VIAL. ONE (12:47)
[2018-04-03] MEDS ORDERED: fentaNYL PF VIAL 100 MCG/2 ML VIAL ONE (12:48)
[2018-04-03] MEDS ORDERED: LABETALOL 20 MG/4 ML DISP.SYRIN. IVP PRN ×2 (13:00→13:15)
[2018-04-03] MEDS: LABETALOL 20 MG/4 ML DISP.SYRIN. IVP PRN ×2 (13:05→23:35)
[2018-04-03] MEDS ORDERED: ETOMIDATE 20 MG/10 ML VIAL. IV ONE (13:45)
[2018-04-03] MEDS ORDERED: GLYCOPYRROLATE 1 MG/5 ML VIAL. ONE (14:02)
--- NOTE | 2018-04-03 14:45 | PDOC ---
BRIEF OPERATIVE NOTE Pre-Op Diagnosis right ureteral stone Post-Op Diagnosis same Procedure Performed cysto, RIGHT: retrograde, ureteroscopy, laser litho, stent exchange Surgeon Sky Quartz Cutter None Anesthesia Type: General Blood Loss <5cc Specimens Obtained None Findings As dictated Complications None Operative Note Dictation # [id number] GLENN RON MD Apr 03, 2018 14:45
--- NOTE | 2018-04-03 15:13 | OP ---
DATE OF SURGERY: 04/03/2018 PREOPERATIVE DIAGNOSIS: Obstructing right ureteral stones. POSTOPERATIVE DIAGNOSIS: Obstructing right ureteral stones. PROCEDURES PERFORMED: 1. Cystourethroscopy. 2. Right retrograde pyelogram. 3. Right ureteroscopy. 4. Laser lithotripsy. 5. Right 6-[place] x 24 cm double-J ureteral stent exchange. ANESTHESIA: General. COMPLICATIONS: None. BLOOD LOSS: Less than 5 mL. INDICATIONS FOR PROCEDURE: The patient is a 67-year-old female who was admitted few weeks ago with urinary tract infection and obstructing ureteral stones. She underwent a cystoscopy with stent placement at that time. Multiple stones were noted in her bladder and have since been determined to be pure uric acid. She presents today for definitive management of her ureteral stones. DESCRIPTION OF PROCEDURE: The patient was met in the preoperative holding area where her procedure, risks, benefits, and alternatives were reviewed in detail. Informed consent was obtained. She was brought back to the operating room and placed supine on the operating table. A timeout was called, identifying the correct patient, procedure, preoperative antibiotics and right-sided laterality. All members of the surgical team were in agreement. General anesthesia was induced and she was repositioned into dorsal lithotomy and prepped and draped in a sterile fashion. A 21-[place] rigid cystoscope was placed atraumatically through her urethra into her bladder. No abnormalities were noted on cystoscopy with a 30-degree lens. Ureteral orifices were orthotopic in position. The stent was then grasped. Her bladder was emptied and the stent was externalized to the urethral meatus. Through the stent, a sensor wire was fed up to the renal pelvis under fluoroscopic guidance. Alongside the wire, a semirigid ureteroscope was placed into the ureter. At the ureter, we were able to identify 3 stones that were perfectly round. These were basketed out. There was a larger stone that required lithotripsy with a holmium laser. We then performed an ureteroscopy all the way up into the renal pelvis. A retrograde pyelogram was shot confirming the renal anatomy. The scope was looked out and no trauma or residual stones were noted within the ureter. The rigid cystoscope was replaced in the bladder. The stones were evacuated. The bladder was reinspected and no trauma was noted. The bladder was emptied and the scope removed under direct vision. Over the wire, a 6-[place] x 24 cm double-J ureteral stent was placed with fluoroscopic guidance. Good proximal and distal curls were noted within the renal pelvis and bladder respectively. The stent was then tegadermed to her leg and she was awoken and transferred to the PACU in stable condition with plans for discharge in the near future and 24-hour urine studies prior to alkalizing her urine to dissolve the remaining renal stones. GLENN RON MD DR: MELLY/isela JOB#: [id number] / [id number]
--- NOTE | 2018-04-03 15:15 | PDOC ---
Provider Note Provider Note Pt will need to follow up with Dr. Swanson in six weeks after completing 24 hour urine. Instructions for completing lab given to patient's along with new patient paperwork. An appointment has been arranged for her to see Dr. Swanson at [facility] location on 05/12/18 at 1 pm. Ok to send home tomorrow if medical team is agreeable and patient does well overnight. All questions answered. Will check on patient in the am. JOSR GRIMALDO APRN Apr 03, 2018 15:15
--- NOTE | 2018-04-03 15:55 | PDOC ---
PROGRESS NOTES Subjective Subjective Patient underwent cystoscopy with R ureteroscopy and stent exchange today Objective Objective Vital Signs Date Time Temp Pulse Resp B/P (MAP) Pulse Ox O2 Delivery O2 Flow Rate FiO2 04/03/18 13:22 72 208/100 04/03/18 13:18 20 87 Room Air 04/03/18 12:47 97.0 97.0 04/01/18 11:15 3.0 Intake and Output 04/03/18 07:00 Intake Total 1591 ml Output Total 2100 ml Balance -509 ml Intake Oral 760 ml IV Total 831 ml Output Urine Total 2100 ml Assessment Assessment Problems Medical Problems: (1) Abdominal pain Status: Acute (2) Stone, kidney Status: Acute Plan Plan of Care Continue Ceftriaxone, IV fluids, and colace Cystoscopy and R ureteroscopy with stent exchange performed today Will follow up tomorrow to determine if she is well enough to go home Comment Review of Relevant I have reviewed the following items [place] (where applicable) has been applied. Labs Microbiology 03/30/18 Urine Culture - Final, Complete 03/30/18 Urine Culture Result 1 (KINGSLEY) - Final, Complete Medications Current Medications Fentanyl Citrate (Fentanyl 2ml Vial) 50 mcg 1X ONCE IV Last administered on at 15:06; Start 03/30/18 at 14:30; Stop 03/30/18 at 14:35; Status DC Ondansetron HCl (Zofran) 4 mg 1X ONCE IV Last administered on 03/30/18at 15:06 ; Start 03/30/18 at 14:30; Stop 03/30/18 at 14:35; Status DC Sodium Chloride 1,000 ml @ 1,000 mls/hr 1X ONCE IV Last administered on 03/30at 15:55; Start 03/30/18 at 15:30; Stop 03/30/18 at 16:29; Status DC Ondansetron HCl (Zofran) 4 mg PRN Q8HRS PRN IV NAUSEA/VOMITING; Start at 16:15; Stop 03/31/18 at 16:15; Status DC Fentanyl Citrate (Fentanyl 2ml Vial) 50 mcg PRN Q2HR PRN IV PAIN Last administered on 03/31/18at 15:41; Start 03/30/18 at 16:15; Stop 03/31/18 at 16 :15; Status DC Sodium Chloride 1,000 ml @ 75 mls/hr [id number] IV Last administered on 09:06; Start 03/30/18 at 16:08; Stop 03/31/18 at 16:07; Status DC Ceftriaxone Sodium 50 ml @ 100 mls/hr 1X ONCE IV Last administered on 16:26; Start 03/30/18 at 16:15; Stop 03/30/18 at 16:44; Status DC Ceftriaxone Sodium 1 gm/ Dextrose 50 ml @ 100 mls/hr Q24H IV ; Start 03/31/18 at 14:30; Status UNV Ceftriaxone Sodium (Rocephin) 1 gm Q24H IVP Last administered on 04/02/18at 15: 22; Start 03/31/18 at 16:00 Amiodarone HCl (Cordarone) 200 mg DAILY PO Last administered on 04/02/18 09: 03; Start 03/31/18 at 17:00 Carvedilol (Coreg) 12.5 mg BIDWMEALS PO Last administered on 04/02/18at 17:28; Start 03/31/18 at 17:00 Clopidogrel Bisulfate (Plavix) 75 mg DAILY PO Last administered on 04/02/18at 09:02; Start 03/31/18 at 17:00 Famotidine (Pepcid) 20 mg HS PO Last administered on 04/02/18at 20:40; Start 03/31/18 at 21:00 Acetaminophen/ Hydrocodone Bitart (Lortab 7.5/325) 1 tab PRN Q6HRS PRN PO PAIN Last administered on 04/02/18at 21:51; Start 03/31/18 at 16:15 Lactobacillus Rhamnosus (Culturelle) 1 cap BID PO Last administered on at 20:42; Start 03/31/18 at 21:00 Gabapentin (Neurontin) 100 mg TID PO Last administered on 04/02/18at 20:40; Start 03/31/18 at 21:00 Losartan Potassium (Cozaar) 100 mg DAILY PO Last administered on 04/02/18at 09: 05; Start 03/31/18 at 17:00 Simvastatin (Zocor) 20 mg HS PO Last administered on 04/02/18at 20:40; Start 03/31/18 at 21:00 Docusate Sodium (Colace) 100 mg BID PO Last administered on 04/02/18at 20:40; Start 03/31/18 at 21:00 Fentanyl Citrate (Fentanyl 2ml Vial) 50 mcg PRN Q2HR PRN IV PAIN Last administered on 04/03/18at 09:03; Start 04/01/18 at 07:15 Sodium Chloride 1,000 ml @ 75 mls/hr [id number] IV Last administered on at 12:45; Start 04/01/18 at 07:15 Labetalol HCl (Normodyne Iv Push) 10 mg PRN Q4HRS PRN IVP HYPERTENSION, SEE COMMENTS Last administered on 04/03/18at 13:05; Start 04/01/18 at 09:15 Ondansetron HCl (Zofran) 4 mg PRN Q6HRS PRN IV NAUSEA/VOMITING Last administered on 04/02/18at 20:40; Start 04/01/18 at 13:15 Phenazopyridine HCl (Pyridium) 200 mg PRN TID PRN PO URINARY PAIN Last administered on 04/02/18at 20:40; Start 04/02/18 at 12:00 Tamsulosin HCl (Flomax) 0.4 mg DAILY PO Last administered on 04/02/18at 13:17; Start 04/02/18 at 12:30 Ondansetron HCl (Zofran) 4 mg PRN Q6HRS PRN IV NAUSEA/VOMITING; Start at 07:00; Stop 04/03/18 at 23:00 Fentanyl Citrate (Fentanyl 2ml Vial) 25 mcg PRN Q5MIN PRN IV MILD PAIN; Start 04/03/18 at 07:00; Stop 04/03/18 at 23:00 Fentanyl Citrate (Fentanyl 2ml Vial) 50 mcg PRN Q5MIN PRN IV MODERATE TO SEVERE PAIN; Start 04/03/18 at 07:00; Stop 04/03/18 at 23:00 Ringer's Solution 1,000 ml @ 30 mls/hr Q24H IV ; Start 04/03/18 at 07:00; Stop 04/03/18 at 18:59 Lidocaine HCl (Xylocaine-Mpf 1% 2ml Vial) 2 ml PRN 1X PRN ID IV START; Start 04/03/18 at 07:00; Stop 04/03/18 at 23:00 Prochlorperazine Edisylate (Compazine) 5 mg PACU PRN PRN IV NAUSEA, MRX1; Start 04/03/18 at 07:00; Stop 04/03/18 at 23:00 Ondansetron HCl (Zofran) 4 mg PRN Q6HRS PRN IV NAUSEA/VOMITING; Start at 12:45; Stop 04/04/18 at 12:44; Status UNV Fentanyl Citrate (Fentanyl 2ml Vial) 25 mcg PRN Q5MIN PRN IV MILD PAIN; Start 04/03/18 at 12:45; Stop 04/04/18 at 12:44; Status UNV Fentanyl Citrate (Fentanyl 2ml Vial) 50 mcg PRN Q5MIN PRN IV MODERATE TO SEVERE PAIN; Start 04/03/18 at 12:45; Stop 04/04/18 at 12:44; Status UNV Morphine Sulfate (Morphine Sulfate) 1 mg PRN Q10MIN PRN IV SEVERE PAIN; Start 04/03/18 at 12:45; Stop 04/04/18 at 12:44; Status UNV Ringer's Solution 1,000 ml @ 30 mls/hr Q24H IV ; Start 04/03/18 at 12:42; Stop 04/04/18 at 00:41; Status UNV Lidocaine HCl (Xylocaine-Mpf 1% 2ml Vial) 2 ml PRN 1X PRN ID PRIOR TO IV START ; Start 04/03/18 at 12:45; Stop 04/04/18 at 12:44; Status UNV Hydromorphone HCl (Dilaudid) 0.5 mg PRN Q10MIN PRN IV SEV PAIN, Second choice; Start 04/03/18 at 12:45; Stop 04/04/18 at 12:44; Status UNV Prochlorperazine Edisylate (Compazine) 5 mg PACU PRN PRN IV NAUSEA, MRX1; Start 04/03/18 at 12:45; Stop 04/04/18 at 12:44; Status UNV Dexamethasone Sodium Phosphate (Decadron) 20 mg STK-MED ONCE .ROUTE ; Start at 12:47; Stop 04/03/18 at 12:48; Status DC Ondansetron HCl (Zofran) 4 mg STK-MED ONCE .ROUTE ; Start 04/03/18 at 12:47; Stop 04/03/18 at 12:48; Status DC Propofol 20 ml @ As Directed STK-MED ONCE IV ; Start 04/03/18 at 12:47; Stop 04/03/18 at 12:48; Status DC Lidocaine HCl (Lidocaine Pf 2% Vial) 5 ml STK-MED ONCE .ROUTE ; Start 04/03/18 at 12:47; Stop 04/03/18 at 12:48; Status DC Fentanyl Citrate (Fentanyl 2ml Vial) 100 mcg STK-MED ONCE .ROUTE ; Start at 12:48; Stop 04/03/18 at 12:49; Status DC Labetalol HCl (Normodyne Iv Push) 20 mg PRN Q10MIN PRN IVP HYPERTENSION, SEE COMMENTS; Start 04/03/18 at 13:00; Stop 04/03/18 at 13:13; Status DC Iohexol (Omnipaque 300 Mg/ml) 100 ml STK-MED ONCE .ROUTE Last administered on 04/03/18at 14:26; Start 04/03/18 at 12:00; Stop 04/03/18 at 13:01; Status DC Lidocaine HCl (Glydo (Lidocaine) Jelly) 6 jessika STK-MED ONCE .ROUTE ; Start 04/03 at 12:00; Stop 04/03/18 at 13:01; Status DC Labetalol HCl (Normodyne Iv Push) 10 mg PRN Q10MIN PRN IVP HYPERTENSION, SEE COMMENTS Last administered on 04/03/18at 13:22; Start 04/03/18 at 13:15; Stop 04/04/18 at 07:00 Etomidate (Amidate) 20 mg STK-MED ONCE IV ; Start 04/03/18 at 13:45; Stop at 13:46; Status DC Glycopyrrolate (Robinul) 1 mg STK-MED ONCE .ROUTE ; Start 04/03/18 at 14:02; Stop 04/03/18 at 14:03; Status DC Active Scripts Active Reported Simvastatin 20 Mg Tablet 1 Tab PO QHS Famotidine 20 Mg Tablet 20 Mg PO HS Culturelle (Lactobacillus Rhamnosus Gg) 1 Each Cap.sprink 1 Each PO BID Hydrocodone-Apap 7.5-325 (Hydrocodone Bit/Acetaminophen) 1 Each Tablet 1 Tab PO PRN Q6HRS PRN Gabapentin 100 Mg Capsule 1 Cap PO TID Clopidogrel (Clopidogrel Bisulfate) 75 Mg Tablet 1 Tab PO DAILY Carvedilol 12.5 Mg Tablet 1 Tab PO BID Losartan Potassium 100 Mg Tablet 1 Tab PO DAILY Amiodarone Hcl 200 Mg Tablet 1 Tab PO DAILY Vitals/I & O Vital Sign - Last 24 Hours 04/02/18 04/02/18 04/02/18 04/02/18 17:28 19:00 20:00 21:51 Temp 97.4 97.4 Pulse 60 60 Resp 18 17 B/P (MAP) 156/82 168/88 (114) Pulse Ox 65 96 O2 Delivery Room Air Room Air 04/02/18 04/02/18 04/03/18 04/03/18 22:51 23:00 03:00 07:00 Temp 97.4 97.5 97.7 97.4 97.5 97.7 Pulse 58 58 68 Resp 16 18 16 B/P (MAP) 144/79 (100) 150/82 (104) 177/94 (121) Pulse Ox 96 92 93 92 O2 Delivery Room Air Room Air 04/03/18 04/03/18 04/03/18 04/03/18 08:00 09:03 09:33 11:00 Temp 97.9 97.9 Pulse 20 Resp 20 B/P (MAP) 187/98 (127) Pulse Ox 92 O2 Delivery Room Air Room Air Room Air Room Air 04/03/18 04/03/18 04/03/18 04/03/18 12:47 13:05 13:18 13:22 Temp 97.0 97.0 Pulse 80 85 72 72 Resp 20 20 B/P (MAP) 232/110 235/122 208/100 208/100 Pulse Ox 93 87 O2 Delivery Room Air Room Air Intake and Output 04/02/18 04/02/18 04/03/18 15:00 23:00 07:00 Intake Total 360 ml 831 ml 400 ml Output Total 1000 ml 1100 ml Balance 360 ml -169 ml -700 ml DARRICK PINTO MD Apr 03, 2018 15:55
[2018-04-03] MEDS: cefTRIAXone IV Push 1 GM VIAL. IVP SCH (17:49)
[2018-04-03] MEDS: HYDROcodone/APAP 7.5/325MG 1 TAB TABLET PO PRN (19:53)
[2018-04-03] MEDS: SIMVASTATIN 20 MG TABLET PO SCH (19:53)
[2018-04-03] MEDS: PHENAZOPYRIDINE 200 MG TABLET. PO PRN (19:53)
[2018-04-03] MEDS: FAMOTIDINE 20 MG TABLET. PO SCH (19:54)
[2018-04-03 20:27] VITALS: BP 160/100
[2018-04-03 23:07] VITALS: BP 165/94
[2018-04-04] MEDS: HYDROcodone/APAP 7.5/325MG 1 TAB TABLET PO PRN ×3 (02:48→14:45)
[2018-04-04 03:49] VITALS: BP 139/73
[2018-04-04 07:00] VITALS: BP 184/110
[2018-04-04] MEDS: TAMSULOSIN 0.4 MG CAP.ER.24H. PO SCH (08:10)
[2018-04-04] MEDS: GABAPENTIN 100 MG CAPSULE. PO SCH ×2 (08:10→14:45)
[2018-04-04] MEDS: PHENAZOPYRIDINE 200 MG TABLET. PO PRN (08:10)
[2018-04-04] MEDS: LACTOBACILLUS RHAMNOSUS GG 1 CAPSULE. PO SCH (08:11)
[2018-04-04] MEDS: CARVEDILOL 12.5 MG TABLET. PO SCH (08:11)
[2018-04-04] MEDS: AMIODARONE HCL 200 MG TABLET. PO SCH (08:12)
[2018-04-04] MEDS: CLOPIDOGREL BISULFATE 75 MG TABLET PO SCH (08:12)
[2018-04-04] MEDS: DOCUSATE SODIUM 100 MG CAPSULE. PO SCH (08:12)
[2018-04-04] MEDS: LOSARTAN POTASSIUM 50 MG TABLET. PO SCH (08:12)
[2018-04-04] MEDS: LABETALOL 20 MG/4 ML DISP.SYRIN. IVP PRN (08:13)
--- NOTE | 2018-04-04 08:58 | PDOC ---
SUBJECTIVE Subjective Pt relates she had a "peaceful" night. Pain well controlled with oral medications only. OBJECTIVE Objective Physical Exam: General appearance: Alert and Oriented Head: Normocephalic, without obvious abnormality Eyes: conjunctivae/corneas clear. PERRL, EOM's intact. Fundi benign Lungs: regular respirations, non labored breathing Pelvic: Stent strings taped to right inner thigh. Vital Signs Vital Signs Date Time Temp Pulse Resp B/P (MAP) Pulse Ox O2 Delivery O2 Flow Rate FiO2 04/04/18 08:15 Nasal Cannula 2.0 04/04/18 08:13 67 184/110 04/04/18 08:12 67 184/110 04/04/18 08:12 67 184/110 04/04/18 08:11 67 184/110 04/04/18 07:45 Nasal Cannula 2.0 04/04/18 07:00 97.6 67 20 184/110 (134) 93 Nasal Cannula 2.0 97.6 04/04/18 03:49 97.7 61 16 139/73 (95) 93 Nasal Cannula 2.0 97.7 04/03/18 23:58 95 Room Air 2.0 04/03/18 23:35 73 165/94 04/03/18 23:28 95 Room Air 2.0 04/03/18 23:07 97.7 73 16 165/94 (117) 93 Nasal Cannula 2.0 97.7 04/03/18 20:53 93 Room Air 04/03/18 20:27 97.5 79 16 160/100 (120) 93 Nasal Cannula 2.0 97.5 04/03/18 20:00 Room Air 04/03/18 19:53 18 95 Nasal Cannula 2.0 04/03/18 17:48 80 191/97 04/03/18 15:18 99.2 80 18 191/97 95 Nasal Cannula 2 99.2 04/03/18 15:03 86 16 181/99 98 Simple Mask 10 04/03/18 14:48 99.2 86 16 188/96 98 Simple Mask 10 99.2 04/03/18 14:48 Mask 10 04/03/18 13:22 72 208/100 04/03/18 13:18 72 20 208/100 87 Room Air 04/03/18 13:05 85 235/122 04/03/18 12:47 97.0 80 20 232/110 93 Room Air 97.0 04/03/18 11:00 97.9 20 20 187/98 (127) 92 Room Air 97.9 04/03/18 09:03 Room Air I & O Intake and Output 04/04/18 07:00 Intake Total 765 ml Output Total 2310 ml Balance -1545 ml Intake Oral 765 ml Output Urine Total 2300 ml Estimated Blood Loss 10 ml PHYSICAL EXAM Physical Exam Physical Exam: General appearance: Alert and Oriented Head: Normocephalic, without obvious abnormality Eyes: conjunctivae/corneas clear. PERRL, EOM's intact. Fundi benign Lungs: regular respirations, non labored breathing Pelvic: Stent strings taped to right inner thigh. ASSESSMENT/PLAN Assessment/Plan From a Urology perspective, may go home today after afternoon dose of Rocephin. However Final decision rests with PCP and I did explain this to patient. RX written for Keflex 250 mg QID for ten days due to multiple patient allergies. Total 40 tabs, no refills. May start oral antibiotics tomorrow. RX written for pain control: Lortab 7.5/325: 1 tab q 6 hours prn pain, total 40 no refills. RX written for flomax: 0.4 m tab daily for thirty days, total 30 no refills. Pt will need to follow up with Dr. Swanson in six weeks after completing 24 hour urine. Instructions for completing lab given to patient's along with new patient paperwork yesterday. An appointment has been arranged for her to see Dr. Swanson at [facility] location on 05/12/18 at 1 pm. Ok to send home today after dose of Rocephin if medical team is agreeable. Problems: (1) Nephrolithiasis JOSR GRIMALDO APRN Apr 04, 2018 08:58
--- NOTE | 2018-04-04 10:21 | PDOC3 ---
*Discharge Summary* Date of Admission: Mar 30, 2018 Date of Discharge: Apr 04, 2018 Admitting Diagnosis Problems Medical Problems: (1) Abdominal pain Status: Acute (2) Stone, kidney Status: Acute Final Diagnosis Problems Medical Problems: (1) Abdominal pain Status: Acute (2) Stone, kidney Status: Acute CONSULTS Urology Procedures 1. Cystourethroscopy. 2. Right retrograde pyelogram. 3. Right ureteroscopy. 4. Laser lithotripsy. 5. Right 6-Lux[place] x 24 cm double-J ureteral stent exchange. Brief Hospital Course Ms. Avila is a 67 old female who presented with severe abdominal pain. She was found to have nonobstructing nephrolithiasis and was started on ceftriaxone , IVF, and fentanyl. After 3 days of antibiotics she underwent cystoscopy with R ureteroscopy, laser lithotripsy and R ureteral stent exchange. Patient's symptoms have improved significantly since her procedure, she is in stable condition and would like to go home. Disposition/Orders: D/C to Home CONDITION AT DISCHARGE: Improved, Stable Diet: Regular Home Meds Reported Medications Simvastatin (SIMVASTATIN) 20 Mg Tablet, 1 TAB PO QHS, #30 TAB 5 Refills 03/22/18 Famotidine (FAMOTIDINE) 20 Mg Tablet, 20 MG PO HS, TAB 02/05/18 Lactobacillus Rhamnosus Gg (CULTURELLE) 1 Each Cap.sprink, 1 EACH PO BID, CAP 02/05/18 Hydrocodone Bit/Acetaminophen (HYDROCODONE-APAP 7.5-325 ) 1 Each Tablet, 1 TAB PO PRN Q6HRS PRN for PAIN 02/01/18 Gabapentin (Gabapentin) 100 Mg Capsule, 1 CAP PO TID 02/01/18 Clopidogrel Bisulfate (CLOPIDOGREL) 75 Mg Tablet, 1 TAB PO DAILY 02/01/18 Carvedilol (CARVEDILOL) 12.5 Mg Tablet, 1 TAB PO BID 02/01/18 Losartan Potassium (LOSARTAN POTASSIUM) 100 Mg Tablet, 1 TAB PO DAILY 02/01/18 Amiodarone Hcl (AMIODARONE HCL) 200 Mg Tablet, 1 TAB PO DAILY 02/01/18 Scheduled Amiodarone Hcl (Amiodarone Hcl), 1 TAB PO DAILY, (Reported) Carvedilol (Carvedilol), 1 TAB PO BID, (Reported) Cephalexin (Keflex), 250 MG PO QID, (Reported) Clopidogrel Bisulfate (Clopidogrel), 1 TAB PO DAILY, (Reported) Famotidine (Famotidine), 20 MG PO HS, (Reported) Gabapentin (Gabapentin), 1 CAP PO TID, (Reported) Lactobacillus Rhamnosus Gg (Culturelle), 1 EACH PO BID, (Reported) Losartan Potassium (Losartan Potassium), 1 TAB PO DAILY, (Reported) Simvastatin (Simvastatin), 1 TAB PO QHS, (Reported) Tamsulosin Hcl (Flomax), 1 CAP PO DAILY, (Reported) Scheduled PRN Hydrocodone Bit/Acetaminophen (Hydrocodone-Apap 7.5-325 ), 1 TAB PO PRN Q6HRS PRN for PAIN, (Reported) FOLLOW UP APPOINTMENT: Follow up with Dr Swanson in 6 weeks Follow up with Dr Pinto in 2 weeks Time Spent Total time spent with patient [] minutes for coordination of care, counseling, and education. DARRICK PINTO MD Apr 04, 2018 10:21
[2018-04-04 11:00] VITALS: BP 141/81
[2018-04-04] MEDS ORDERED: TAMS0.4C97 PO (13:55)
[2018-04-04] MEDS ORDERED: CEPH-263 PO (13:56)
[2018-04-04] MEDS: cefTRIAXone IV Push 1 GM VIAL. IVP SCH (14:45)
== END 2018-04-04 15:29 | disposition home or self-care (01) | DRG 854 ==
LOC: ER 13:46 → 5 SOUTH 16:02
PROVIDERS: ADMIT Internal Medicine Cardiovascular Disease; ATTEND Internal Medicine Cardiovascular Disease
PROC: 0TC68ZZ Extirpation of Matter from Right Ureter, Via Natural or Artificial Opening Endoscopic (ICD-10-PCS; 2018-04-03)
PROC: 0TP98DZ Removal of Intraluminal Device from Ureter, Via Natural or Artificial Opening Endoscopic (ICD-10-PCS; 2018-04-03)
PROC: BT1D1ZZ Fluoroscopy of Right Kidney, Ureter and Bladder using Low Osmolar Contrast (ICD-10-PCS; principal; 2018-04-03 13:00)
PROC: 0T768DZ Dilation of Right Ureter with Intraluminal Device, Via Natural or Artificial Opening Endoscopic (ICD-10-PCS; 2018-04-03 13:00)
DX: A41.9 Sepsis, unspecified organism (principal); N20.2 Calculus of kidney with calculus of ureter; I42.9 Cardiomyopathy, unspecified; K21.9 Gastro-esophageal reflux disease without esophagitis; I16.0 Hypertensive urgency; M19.90 Unspecified osteoarthritis, unspecified site; I11.0 Hypertensive heart disease with heart failure; I73.9 Peripheral vascular disease, unspecified; I25.10 Atherosclerotic heart disease of native coronary artery without angina pectoris; I48.91 Unspecified atrial fibrillation; J44.9 Chronic obstructive pulmonary disease, unspecified; I50.9 Heart failure, unspecified; Z87.440 Personal history of urinary (tract) infections; Z86.73 Personal history of transient ischemic attack (TIA), and cerebral infarction without residual deficits; Z90.49 Acquired absence of other specified parts of digestive tract; Z87.01 Personal history of pneumonia (recurrent); Z90.710 Acquired absence of both cervix and uterus; Z87.442 Personal history of urinary calculi; I25.2 Old myocardial infarction; Z88.1 Allergy status to other antibiotic agents; Z88.5 Allergy status to narcotic agent; Z88.2 Allergy status to sulfonamides; Z79.899 Other long term (current) drug therapy; Z98.51 Tubal ligation status
CPT/HCPCS: 36415; 74176; 74420; 80053; 81001; 85025; 87086; 96361; 96365; 96375; C1769; C2617; J0690; J0696; J1100; J2001; J2405; J2704; J3010; J3490; J7030; Q9967; 99285-25

== ENCOUNTER → 2018-05-22 | Emergency (ER) | payer OTHER ==
[~2018-05-22] VITALS: Ht 160 cm; Wt 81.6 kg
[~2018-05-22] MED LIST changes: +APIX5TAB PO; +CARV12.511 PO; -CARV12.52 PO; +CEPH-263 PO; -HYDR-2758 PO; +HYDR-2761 PO; -HYDR-2762 PO; +HYDR-2765 PO; +HYDR-3164 PO; -HYDR-971 PO; +LOSA100T14 PO; -LOSA100T7 PO; -OXYC-323 PO; -OXYC-327 PO; +OXYC1TAB15 PO; +OXYC1TAB19 PO
--- NOTE | 2018-05-22 15:15 | RAD ---
DUPLEX SONOGRAPHY OF THE PERIPHERAL ARTERIAL SYSTEM OF THE RIGHT LOWER EXTREMITY Clinical indications: Right leg pain. Findings: Duplex sonography of the peripheral arterial system of the right lower extremity including adams scale and color flow and spectral waveform analysis was performed. Abnormal monophasic waveforms are seen. There is segmental occlusion of the proximal and mid right superficial femoral artery with reconstitution of the distal right superficial femoral artery via collateral circulation. The measurements were performed using the NASCET criteria. Peak systolic flow velocities are as follows: Right leg: common femoral artery- 143 cm/sec, profunda femoral artery -1:30 cm/sec, proximal superficial femoral artery -0 cm/sec, mid superficial femoral artery -0 cm/sec, distal superficial femoral artery- 87 cm/sec, popliteal artery -44 cm/sec, proximal posterior tibial artery- 58 cm/sec, peroneal artery- 34 cm/sec, anterior tibial artery- 55 cm/sec, dorsalis pedis artery -27 cm/sec. Impression: Segmental occlusion of the proximal and mid right SFA with reconstitution of the distal right SFA via collateral circulation. Electronically signed by: Carlos Devries MD (05/22/2018 3:11 PM) [place] [id number]
--- NOTE | 2018-05-22 15:17 | RAD ---
Right leg venous Doppler study: Clinical indications: Right leg pain. Findings: Duplex sonography (including adams scale evaluation and color flow and waveform spectral analysis) of the proximal aspect of the greater saphenous vein and proximal aspect of the profunda femoral vein and the entire length of the common femoral and superficial femoral and popliteal veins and the tibioperoneal trunk and the proximal aspect of the posterior tibial and peroneal veins of the right leg was performed. There is partial nonocclusive thrombosis of the right common femoral vein. Normal compressibility, augmentation of color Doppler flow after calf compression, and respiratory variation of Doppler flow of the other veins is seen. Thus, there are no sonographic findings of deep venous thrombosis within these veins. 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 Electronically signed by: Carlos Devries MD (05/22/2018 3:13 PM) [facility]
--- NOTE | 2018-05-22 15:48 | PHYS DOC ---
Past Medical History Past Medical History: A-Fib, CHF, COPD, CVA, Hypertension, Kidney Stone, Other Additional Past Medical Histor: Emphysema, Cardiomyopathy, PAD Past Surgical History: Appendectomy, Cholecystectomy, Hysterectomy, Tonsillectomy, Tubal ligation Additional Past Surgical Histo: hernia repair, arteriogram, 2 stents in right femoral, lithotripsy Alcohol Use: None Drug Use: None Adult General Chief Complaint Chief Complaint: LOWER EXT PAIN HPI HPI 67-year-old female presents with 2 week history of right leg pain. Patient states she gets pain in her right calf when she walks. She is also noticed a little bit of swelling in the right leg. Today she went to her primary care office and was sent over here for further evaluation. Patient denies any chest pain shortness of breath or dyspnea on exertion. She denies any hemoptysis. She does have atrial fibrillation and takes Plavix routinely. She states she has not had any of the same symptoms on her left leg. She has no history of blood clots that she is aware of. She does have a history of smoking. She states the pain in her right leg is relieved with rest she cannot recall is hanging the leg over the edge of the couch or bed is helpful[] Review of Systems Review of Systems Constitutional: Denies fever or chills [] Eyes: Denies change in visual acuity, redness, or eye pain [] HENT: Denies nasal congestion or sore throat [] Respiratory: Denies cough or shortness of breath or dyspnea on exertion [] Cardiovascular: No additional information not addressed in HPI [] GI: Denies abdominal pain, nausea, vomiting, bloody stools or diarrhea [] : Denies dysuria or hematuria [] Musculoskeletal: Per history of present illness[] Integument: Denies rash or skin lesions [] Neurologic: Denies headache, focal weakness or sensory changes [] Endocrine: Denies polyuria or polydipsia [] All other systems were reviewed and found to be within normal limits, except as documented in this note. Current Medications Current Medications Current Medications Medications (Trade) Dose Ordered Sig/Flash Start Time Stop Time Status Last Admin Dose Admin Apixaban (Eliquis) 5 mg 1X ONCE 05/22/18 15:45 05/22/18 15:46 UNV Allergies Allergies Allergies Coded Allergies Type Severity Reaction Last Updated Verified Sulfa (Sulfonamide Antibiotics) Allergy Severe Anaphylaxis 11/15/15 Yes morphine Allergy Severe SWELLS UP AND CAN'T BREATHE 03/30/18 Yes levofloxacin Adverse Reaction Intermediate Nausea 11/15/15 Yes Physical Exam Physical Exam Constitutional: Well developed, well nourished, no acute distress, non-toxic appearance. [] HENT: Normocephalic, atraumatic, bilateral external ears normal, oropharynx moist, no oral exudates, nose normal. [] Eyes: PERRLA, EOMI, conjunctiva normal, no discharge. [] Neck: Normal range of motion, no tenderness, supple, no stridor. [] Cardiovascular:Heart rate regular rhythm, no murmur [] Lungs & Thorax: Bilateral breath sounds clear to auscultation [] Abdomen: Bowel sounds normal, soft, no tenderness, no masses, no pulsatile masses. [] Skin: Warm, dry, no erythema, no rash. [] Back: No tenderness, no CVA tenderness. [] Extremities: No tenderness, no cyanosis, no clubbing, ROM intact, no edema, some right calf tenderness certainly no significant swelling there is a faintly palpable dorsalis pedis pulse that is equal bilaterally I was unable to palpate a posterior tibial pulse on either side her toes have normal color they're warm with cap refill of less than 2 seconds. [] Neurologic: Alert and oriented X 3, normal motor function, normal sensory function, no focal deficits noted. [] Psychologic: Affect normal, judgement normal, mood normal. [] Current Patient Data Vital Signs Vital Signs Date Time Temp Pulse Resp B/P (MAP) Pulse Ox O2 Delivery O2 Flow Rate FiO2 05/22/18 12:48 98.0 78 22 141/81 (101) 99 Room Air 98.0 EKG EKG [] Radiology/Procedures Radiology/Procedures [] Impressions: PROCEDURE: VENOUS LOWER EXTREMITY RIGHT Right leg venous Doppler study: Clinical indications: Right leg pain. Findings: Duplex sonography (including adams scale evaluation and color flow and waveform spectral analysis) of the proximal aspect of the greater saphenous vein and proximal aspect of the profunda femoral vein and the entire length of the common femoral and superficial femoral and popliteal veins and the tibioperoneal trunk and the proximal aspect of the posterior tibial and peroneal veins of the right leg was performed. There is partial nonocclusive thrombosis of the right common femoral vein. Normal compressibility, augmentation of color Doppler flow after calf compression, and respiratory variation of Doppler flow of the other veins is seen. Thus, there are no sonographic findings of deep venous thrombosis within these veins. 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 PROCEDURE: DUPLEX LOWER EX ARTERIAL RIGHT DUPLEX SONOGRAPHY OF THE PERIPHERAL ARTERIAL SYSTEM OF THE RIGHT LOWER EXTREMITY Clinical indications: Right leg pain. Findings: Duplex sonography of the peripheral arterial system of the right lower extremity including adams scale and color flow and spectral waveform analysis was performed. Abnormal monophasic waveforms are seen. There is segmental occlusion of the proximal and mid right superficial femoral artery with reconstitution of the distal right superficial femoral artery via collateral circulation. The measurements were performed using the NASCET criteria. Peak systolic flow velocities are as follows: Right leg: common femoral artery- 143 cm/sec, profunda femoral artery -1:30 cm/sec, proximal superficial femoral artery -0 cm/sec, mid superficial femoral artery -0 cm/sec, distal superficial femoral artery- 87 cm/sec, popliteal artery -44 cm/sec, proximal posterior tibial artery- 58 cm/sec, peroneal artery- 34 cm/sec, anterior tibial artery- 55 cm/sec, dorsalis pedis artery -27 cm/sec. Impression: Segmental occlusion of the proximal and mid right SFA with reconstitution of the distal right SFA via collateral circulation. Course & Med Decision Making Course & Med Decision Making Pertinent Labs and Imaging studies reviewed. (See chart for details) ED course: Evaluation reveals a 67-year-old female with concerning symptoms for claudication. An arterial study revealed segmental occlusion of the SFA with collateral fill distally. This appears chronic. She also has what appears to be in acute partially occlusive proximal DVT. Again she has not had any shortness of breath or chest pain. She was given aliquots in the department IV and informed her of the importance of starting this medication as an outpatient and she seems to understand. I spoke with Dr. Guan her vascular surgeon who agreed with this treatment plan. He or someone in his group will follow routinely within the next week or so. Patient is safe for discharge home at this time] Dragon Disclaimer Dragon Disclaimer This electronic medical record was generated, in whole or in part, using a voice recognition dictation system. Departure Departure Impression: Primary Impression: DVT (deep venous thrombosis) Disposition: 01 HOME, SELF-CARE Condition: STABLE Referrals: DARRICK ZHOU MD (PCP) BONNY GUAN MD Follow with Dr. Guan or one of his partners this week. Please call her office to schedule an appointment first thing in the morning. Patient Instructions: Intermittent Claudication, Venous Thromboembolism, Venous Thromboembolism, Prevention Additional Instructions: Follow with Dr. Zhou this week for recheck Scripts Apixaban (ELIQUIS) 5 Mg Tablet 5 MG PO BID for DVT, #60 TAB Prov: KATHRYN CALDERON DO 05/22/18 Problem Qualifiers Primary Impression: DVT (deep venous thrombosis) DVT location: lower extremity Affected thrombotic vein of extremity: femoral Chronicity: acute Laterality: right Qualified Codes: I82.411 - Acute embolism and thrombosis of right femoral vein KATHRYN CALDERON DO May 22, 2018 15:48
[2018-05-22] MEDS: APIXABAN 5 MG TABLET. PO ONE (16:13)
[2018-05-22 16:15] VITALS: BP 165/65
== END ==
LOC: ER 12:42
DX: I82.411 Acute embolism and thrombosis of right femoral vein (principal); I11.0 Hypertensive heart disease with heart failure; I50.9 Heart failure, unspecified; I48.91 Unspecified atrial fibrillation; Z86.73 Personal history of transient ischemic attack (TIA), and cerebral infarction without residual deficits; Z90.49 Acquired absence of other specified parts of digestive tract; J43.9 Emphysema, unspecified; Z90.89 Acquired absence of other organs; Z90.710 Acquired absence of both cervix and uterus; Z98.51 Tubal ligation status; Z98.890 Other specified postprocedural states; Z95.5 Presence of coronary angioplasty implant and graft; I73.9 Peripheral vascular disease, unspecified; Z88.1 Allergy status to other antibiotic agents; Z88.2 Allergy status to sulfonamides; Z88.5 Allergy status to narcotic agent
CPT/HCPCS: 93926; 93971; 99284-25

== ENCOUNTER → 2018-07-01 | Outpatient (CLI) | payer OTHER ==
[2018-06-08 11:00] VITALS: BP 146/75
[~2018-07-01] MED LIST changes: +ASPI81TA50 PO; +MAGN400T22 PO; +POLY17PO28 PO; +SENN-121 PO; +TRAM50TA PO
--- NOTE | 2018-07-01 14:03 | RAD ---
Examination: CT of the abdomen pelvis without contrast HISTORY: History of right iliac artery aneurysm COMPARISON: 03/30/2018 TECHNIQUE: Axial CT images of the abdomen pelvis were performed without contrast. Coronal and sagittal reformats are performed Exposure: One or more of the following individualized dose reduction techniques were utilized for this examination: 1. Automated exposure control 2. Adjustment of the mA and/or kV according to patient size 3. Use of iterative reconstruction technique FINDINGS: Minimal bibasilar lung atelectasis No evidence of free air identified in the abdomen The evaluation of the solid organs is limited lack of IV contrast. The evaluation of bowel is limited lack of oral contrast. The visualized noncontrasted liver, spleen, grossly appears unremarkable Fatty densities identified in the bilateral adrenal glands likely adrenal adenomas similar to prior exam. The visualized pancreas grossly appears unremarkable the stomach is mildly distended. The small bowel is nondilated. Feces and gas noted in the colon. Submucosal lipoma identified in the transverse colon similar to prior exam. Multiple intrarenal collecting system calculi identified in the bilateral kidneys the largest measuring 8 mm in the right and 1.3 cm and the left in the mid calyx region likely staghorn calculus similar to prior exam. No evidence of hydronephrosis. There is a small calcification measuring 3.2 mm identified in the mid right ureter could be a right ureter calculus. Cystic structures identified in the bilateral kidneys similar to prior exam likely renal cysts. Urinary bladder is mildly distended. Moderate aortic atherosclerosis. Retroaortic left renal vein. There is mild aneurysmal change of the common right iliac artery measuring 1.7 cm. Multiple colonic diverticulosis. IMPRESSION: 1. Intrarenal collecting system calculi identified in the bilateral kidney similar to prior exam. Small right ureteral calculus without hydronephrosis. 2. Colon diverticulosis. 3. Mild aneurysmal changes right common iliac artery. 4. Bilateral probable renal cysts similar to prior exam. Electronically signed by: Jason Coleman MD (07/01/2018 1:59 PM) [place] [id number]
== END | disposition home or self-care (01) ==
LOC: CT 11:06
PROVIDERS: ATTEND Specialist
DX: I72.3 Aneurysm of iliac artery (principal); D17.5 Benign lipomatous neoplasm of intra-abdominal organs; K57.30 Diverticulosis of large intestine without perforation or abscess without bleeding; N20.2 Calculus of kidney with calculus of ureter; J98.11 Atelectasis; I70.0 Atherosclerosis of aorta; Z87.891 Personal history of nicotine dependence; Z88.8 Allergy status to other drugs, medicaments and biological substances; Z88.5 Allergy status to narcotic agent; Z88.2 Allergy status to sulfonamides
CPT/HCPCS: 74176

== ENCOUNTER 2018-07-08 13:29 | Emergency (ER) | payer OTHER ==
[~2018-07-08] VITALS: Ht 160 cm; Wt 81.6 kg
[~2018-07-08 13:29] MED LIST changes: -ASPI81TA50 PO; -SENN-121 PO
[2018-07-08] MEDS ORDERED: IV NORMAL SALINE 1000ML BAG 1,000 ML IV ONE (14:30)
[2018-07-08] MEDS ORDERED: fentaNYL PF VIAL 100 MCG/2 ML VIAL IV ONE (14:30)
[2018-07-08 14:58] LABS: BASO # 0.1 x10^3/uL (0.0-0.2); BASO % 1 % (0-3); EOS # 0.2 x10^3/uL (0.0-0.7); EOS % 2 % (0-3); HEMATOCRIT 39.4 % (36.0-47.0); LYMPH # 1.6 x10^3/uL (1.0-4.8); LYMPH % 22 % (24-48); MEAN CORPUSCULAR HEMOGLOBIN 27 pg (25-35); MEAN CORPUSCULAR HGB CONC 33 g/dL (31-37); MEAN CORPUSCULAR VOLUME 81 fL (79-100); MONO # 0.5 x10^3/uL (0.0-1.1); MONO % 7 % (0-9); NEUT % 68 % (31-73); PLATELET COUNT 220 x10^3/uL (140-400); RED BLOOD COUNT 4.85 x10^6/uL (3.50-5.40); RED CELL DISTRIBUTION WIDTH 15.9 % (11.5-14.5); WHITE BLOOD COUNT 7.4 x10^3/uL (4.0-11.0)
[2018-07-08 15:00] VITALS: BP 201/93
[2018-07-08 15:03] LABS: CALCIUM 9.4 mg/dL (8.5-10.1); CREATININE 0.9 mg/dL (0.6-1.0); GFR 62.3
[2018-07-08 15:10] LABS: PROTHROMBIN TIME PATIENT 17.4 SEC (11.7-14.0)
[2018-07-08 15:12] LABS: ALBUMIN 3.3 g/dL (3.4-5.0); ALBUMIN/GLOBULIN RATIO 0.8 (1.0-1.7); TOTAL BILIRUBIN 0.4 mg/dL (0.2-1.0); TOTAL PROTEIN 7.3 g/dL (6.4-8.2)
--- NOTE | 2018-07-08 15:14 | PHYS DOC ---
Past Medical History Past Medical History: A-Fib, CHF, CVA, DVT, Hypertension, Kidney Stone Additional Past Medical Histor: RIGHT SIDED RESIDUAL FROM CVA Past Surgical History: Cholecystectomy, Hysterectomy, Tonsillectomy Additional Past Surgical Histo: MULTIPLE KIDNEY STONES REMOVED Alcohol Use: None Drug Use: None Adult General Chief Complaint Chief Complaint: LOWER EXT PAIN HPI HPI Patient is a 68 year old [f__sex] who presents with [] Review of Systems Review of Systems Constitutional: Denies fever or chills [] Eyes: Denies change in visual acuity, redness, or eye pain [] HENT: Denies nasal congestion or sore throat [] Respiratory: Denies cough or shortness of breath [] Cardiovascular: No additional information not addressed in HPI [] GI: Denies abdominal pain, nausea, vomiting, bloody stools or diarrhea [] : Denies dysuria or hematuria [] Musculoskeletal: Denies back pain or joint pain [] Integument: Denies rash or skin lesions [] Neurologic: Denies headache, focal weakness or sensory changes [] Endocrine: Denies polyuria or polydipsia [] All other systems were reviewed and found to be within normal limits, except as documented in this note. Current Medications Current Medications Current Medications Medications (Trade) Dose Ordered Sig/Flash Start Time Stop Time Status Last Admin Dose Admin Fentanyl Citrate (Fentanyl 2ml Vial) 50 mcg 1X ONCE 07/08/18 14:30 07/08/18 14:31 DC 07/08/18 14:45 50 MCG Iohexol (Omnipaque 350 Mg/ml) 95 ml 1X ONCE 07/08/18 15:15 07/08/18 15:16 DC 07/08/18 15:30 95 ML Sodium Chloride 1,000 ml @ 1,000 mls/hr 1X ONCE 07/08/18 14:30 07/08/18 15:29 DC 07/08/18 14:45 1,000 MLS/HR Allergies Allergies Allergies Coded Allergies Type Severity Reaction Last Updated Verified Sulfa (Sulfonamide Antibiotics) Allergy Severe Anaphylaxis 11/15/15 Yes morphine Allergy Severe SWELLS UP AND CAN'T BREATHE 03/30/18 Yes levofloxacin Adverse Reaction Intermediate Nausea 11/15/15 Yes Physical Exam Physical Exam Constitutional: Well developed, well nourished, no acute distress, non-toxic appearance. [] HENT: Normocephalic, atraumatic, bilateral external ears normal, oropharynx moist, no oral exudates, nose normal. [] Eyes: PERRLA, EOMI, conjunctiva normal, no discharge. [] Neck: Normal range of motion, no tenderness, supple, no stridor. [] Cardiovascular: Heart rate regular rhythm, no murmur [] Lungs & Thorax: Bilateral breath sounds clear to auscultation [] Abdomen: Soft, no tenderness Skin: Warm, dry, no erythema, no rash. [] Back: No tenderness, no CVA tenderness. [] Extremities: No tenderness, no cyanosis, no clubbing, ROM intact, no edema. [] Neurologic: Alert and oriented X 3, Right focal weakness due to chronic CVA Psychologic: Affect normal, judgement normal, mood normal. [] Current Patient Data Vital Signs Vital Signs Date Time Temp Pulse Resp B/P (MAP) Pulse Ox O2 Delivery O2 Flow Rate FiO2 07/08/18 14:00 97.5 81 18 227/101 (143) 95 Room Air 97.5 Lab Values Laboratory Tests Test 07/08/18 14:40 White Blood Count 7.4 x10^3/uL (4.0-11.0) Red Blood Count 4.85 x10^6/uL (3.50-5.40) Hemoglobin 13.0 g/dL (12.0-15.5) Hematocrit 39.4 % (36.0-47.0) Mean Corpuscular Volume 81 fL (79-100) Mean Corpuscular Hemoglobin 27 pg (25-35) Mean Corpuscular Hemoglobin Concent 33 g/dL (31-37) Red Cell Distribution Width 15.9 % (11.5-14.5) H Platelet Count 220 x10^3/uL (140-400) Neutrophils (%) (Auto) 68 % (31-73) Lymphocytes (%) (Auto) 22 % (24-48) L Monocytes (%) (Auto) 7 % (0-9) Eosinophils (%) (Auto) 2 % (0-3) Basophils (%) (Auto) 1 % (0-3) Neutrophils # (Auto) 5.0 x10^3uL (1.8-7.7) Lymphocytes # (Auto) 1.6 x10^3/uL (1.0-4.8) Monocytes # (Auto) 0.5 x10^3/uL (0.0-1.1) Eosinophils # (Auto) 0.2 x10^3/uL (0.0-0.7) Basophils # (Auto) 0.1 x10^3/uL (0.0-0.2) Prothrombin Time 17.4 SEC (11.7-14.0) H Prothrombin Time INR 1.5 (0.8-1.1) H PTT 32 SEC (24-38) Sodium Level 138 mmol/L (136-145) Potassium Level 4.0 mmol/L (3.5-5.1) Chloride Level 103 mmol/L (98-107) Carbon Dioxide Level 29 mmol/L (21-32) Anion Gap 6 (6-14) Blood Urea Nitrogen 20 mg/dL (7-20) Creatinine 0.9 mg/dL (0.6-1.0) Estimated GFR (Cockcroft-Gault) 62.3 BUN/Creatinine Ratio 22 (6-20) H Glucose Level 94 mg/dL (70-99) Lactic Acid Level 1.1 mmol/L (0.4-2.0) Calcium Level 9.4 mg/dL (8.5-10.1) Magnesium Level 2.0 mg/dL (1.8-2.4) Total Bilirubin 0.4 mg/dL (0.2-1.0) Aspartate Amino Transferase (AST) 16 U/L (15-37) Alanine Aminotransferase (ALT) 16 U/L (14-59) Alkaline Phosphatase 110 U/L (46-116) Total Protein 7.3 g/dL (6.4-8.2) Albumin 3.3 g/dL (3.4-5.0) L Albumin/Globulin Ratio 0.8 (1.0-1.7) L Laboratory Tests 07/08/18 14:40 Laboratory Tests 07/08/18 14:40 EKG EKG @1406 NSR at 75bpm, NO ST elevation Radiology/Procedures Radiology/Procedures PROCEDURE: VENOUS LOWER EXTREMITY RIGHT Right lower extremity venous doppler ultrasound History: Right lower extremity swelling Comparison: None Findings: Multiple grayscale, color, and duplex spectral analysis sonographic images were acquired of the right lower extremity veins to evaluate for the presence of DVT. There is normal phasicity. Normal compression, color-flow, and augmentation is demonstrated from the right common femoral to the popliteal veins. There is normal color flow of the proximal profundal femoris vein. There is normal color flow of segments of the calf veins. Impression: 1. There is no evidence of deep venous thrombosis from the right common femoral to popliteal veins. Electronically signed by: Tigre Reyes MD (07/08/2018 3:21 PM) [id number] PROCEDURE: CT ANGIO ABD ILEO/FEMOR RUNOFF PQRS Compliance Statement: One or more of the following individualized dose reduction techniques were utilized for this examination: 1. Automated exposure control 2. Adjustment of the mA and/or kV according to patient size 3. Use of iterative reconstruction technique CT angiography of the abdomen/iliofemoral runoff with contrast 07/08/2018 INDICATION: Right leg pain and swelling. COMPARISON: CT abdomen/pelvis July 01, 2018 TECHNIQUE: Multiple axial CT images of the abdomen and lower extremities were obtained after the intravenous administration of 95 cc Omnipaque 350. Coronal and sagittal reformats are provided. Maximum intensity projection images are provided. FINDINGS: There is subsegmental atelectasis at the left lung base. Subpleural pulmonary nodule measures 7 mm in the left lower lobe. Heart size is borderline enlarged. Liver, spleen and pancreas are normal in appearance. Right adrenal fat-containing lesion measures 17 x 14 mm compatible with a adrenal myelolipoma. Similar finding in the left adrenal gland measures 2.5 x 1.9 cm compatible with an adrenal myelolipoma. There are no pathologically enlarged lymph nodes in the abdomen and pelvis. A retroaortic left renal vein is present. Limited evaluation of the portal vein due to phase of contrast administration. Multiple renal cysts are identified. There is an indeterminate left renal lesion measuring 13 x 10 mm in inferior pole the left kidney. Right renal cysts are present. There is a 6 mm nonobstructing calculus in the inferior pole the right kidney. There is no hydronephrosis. Urinary bladder is within normal limits given degree of distention. Moderate amount of stool is noted within the colon. There is moderate sigmoid diverticulosis without adjacent inflammatory changes. No evidence for bowel obstruction or inflammation. Vascular findings: Proximal aorta measures 2.8 x 2.3 cm. Origin of the celiac axis and superior mesenteric artery are widely patent. Minor calcification is noted at the origins. Mild calcified and noncalcified atheromatous plaque is identified at the origin of the right renal artery. There is mild stenosis of the proximal right renal artery. 2 left-sided renal arteries are visualized. Superior renal artery on the left is patent and diminutive in caliber. The larger inferior left renal artery has moderate calcified atheromatous plaque at the origin. There is symmetric perfusion of the kidneys. There is mild to moderate stenosis of the inferior mesenteric artery with poststenotic dilatation measuring 4 mm. Moderate calcified and noncalcified atheromatous plaque is identified. Right common femoral artery is ectatic measuring up to 14 mm. Moderate calcified and noncalcified atheromatous plaque is identified involving the common femoral artery. The right external carotid artery is widely patent with few areas of calcified plaque. Moderate multifocal stenosis is identified involving the right internal iliac artery secondary to calcified and noncalcified atheromatous plaque. Right common femoral artery is widely patent. There is complete occlusion of the right superficial femoral artery graft. The deep femoral artery is patent. There is reconstitution of the popliteal artery distal to the occluded graft. Three-vessel runoff is identified in the right lower extremity. There is moderate skin thickening and subcutis edema involving the right lower extremity. Left common iliac artery is normal in course and caliber with minor calcified plaque. Left external carotid artery is widely patent. Left internal carotid artery demonstrates mild multifocal irregularity secondary to calcified and noncalcified atheromatous plaque. Left common femoral artery is patent. Deep femoral artery is patent with mild multifocal stenosis. There is occlusion of the left superficial femoral artery secondary to calcified and noncalcified atheromatous plaque with reconstitution at the level of the popliteal artery. Moderate multifocal irregularity of the popliteal artery is identified. A three-vessel runoff is identified in the left lower extremity with patent dorsalis pedis artery. IMPRESSION: 1. Right superficial femoral artery stent graft is identified and completely occluded. There is reconstitution distally at the level of the right popliteal artery with patent three-vessel runoff of the right leg. 2. There is occlusion of the left superficial femoral artery with distal reconstitution at the level of the popliteal artery. There is moderate irregularity of the popliteal artery with patent three-vessel runoff of the left leg. 3. There is mild to moderate stenosis of the proximal internal mesenteric artery. There is mild to moderate stenosis of the inferior left renal artery. 4. Bilateral adrenal myelolipomas. 5. Indeterminate cyst in the inferior pole the left kidney measuring 13 x 10 mm. Further characterization with nonemergent renal ultrasound is recommended. Electronically signed by: Renetta Shanks MD (07/08/2018 3:58 PM) [facility] Course & Med Decision Making Course & Med Decision Making Pertinent Labs and Imaging studies reviewed. (See chart for details) [] Dragon Disclaimer Dragon Disclaimer This electronic medical record was generated, in whole or in part, using a voice recognition dictation system. Departure Departure Impression: Primary Impression: Leg edema, right Disposition: HOME, SELF-CARE Condition: STABLE Referrals: FREDRICK PAREKH MD (PCP) Patient Instructions: Peripheral Edema Additional Instructions: You have a history of a deep vein thrombosis. Your ultrasound evaluation today appears improved from prior. Continue use of your Elliquis blood thinner as directed. Scripts Oxycodone/Apap 5-325 (PERCOCET 5-325 MG TABLET ) 1 Each Tablet 0.5-1 TAB PO PRN Q6HRS PRN for PAIN, #10 TAB 0 Refills Prov: STEFFEN BOOKER DO 07/08/18 Sennosides/Docusate Sodium (Colace 2-in-1 Tablet) 1 Each Tablet 1 EACH PO QHS PRN for CONSTIPATION, #30 TAB Prov: STEFFEN BOOKER DO 07/08/18 STEFFEN BOOKER DO Jul 08, 2018 15:14
[2018-07-08] MEDS ORDERED: IOHEXOL 350 MG/ML 100 ML VIAL. IV ONE (15:15)
--- NOTE | 2018-07-08 15:26 | RAD ---
Right lower extremity venous doppler ultrasound History: Right lower extremity swelling Comparison: None Findings: Multiple grayscale, color, and duplex spectral analysis sonographic images were acquired of the right lower extremity veins to evaluate for the presence of DVT. There is normal phasicity. Normal compression, color-flow, and augmentation is demonstrated from the right common femoral to the popliteal veins. There is normal color flow of the proximal profundal femoris vein. There is normal color flow of segments of the calf veins. Impression: 1. There is no evidence of deep venous thrombosis from the right common femoral to popliteal veins. Electronically signed by: Tigre Reyes MD (07/08/2018 3:21 PM) [id number]
--- NOTE | 2018-07-08 15:56 | EKG ---
[facility] [address] [place] [address] Test Date: 2018-07-08 Test Time: 14:06:58 Pat Name: NASIM APPIAH Department: Room: Gender: F [employer] Supervisor: : 1950 Requested By: STEFFEN BOOKER Order Number: [id number] Reading MD: Measurements Intervals Harrod Rate: 75 P: -6 AK: 210 QRS: -19 QRSD: 112 T: 107 QT: 402 QTc: 452 Interpretive Statements SINUS RHYTHM ATRIAL PREMATURE COMPLEX(ES) LEFTWARD AXIS QRS(T) CONTOUR ABNORMALITY CONSISTENT WITH ANTEROSEPTAL INFARCT AGE UNDETERMINED ST & T ABNORMALITY, CONSIDER HIGH LATERAL ISCHEMIA OR LEFT VENTRICULAR STRAIN ABNORMAL ECG RI6.01 No previous ECG available for comparison
--- NOTE | 2018-07-08 16:02 | RAD ---
PQRS Compliance Statement: One or more of the following individualized dose reduction techniques were utilized for this examination: 1. Automated exposure control 2. Adjustment of the mA and/or kV according to patient size 3. Use of iterative reconstruction technique CT angiography of the abdomen/iliofemoral runoff with contrast 07/08/2018 INDICATION: Right leg pain and swelling. COMPARISON: CT abdomen/pelvis July 01, 2018 TECHNIQUE: Multiple axial CT images of the abdomen and lower extremities were obtained after the intravenous administration of 95 cc Omnipaque 350. Coronal and sagittal reformats are provided. Maximum intensity projection images are provided. FINDINGS: There is subsegmental atelectasis at the left lung base. Subpleural pulmonary nodule measures 7 mm in the left lower lobe. Heart size is borderline enlarged. Liver, spleen and pancreas are normal in appearance. Right adrenal fat-containing lesion measures 17 x 14 mm compatible with a adrenal myelolipoma. Similar finding in the left adrenal gland measures 2.5 x 1.9 cm compatible with an adrenal myelolipoma. There are no pathologically enlarged lymph nodes in the abdomen and pelvis. A retroaortic left renal vein is present. Limited evaluation of the portal vein due to phase of contrast administration. Multiple renal cysts are identified. There is an indeterminate left renal lesion measuring 13 x 10 mm in inferior pole the left kidney. Right renal cysts are present. There is a 6 mm nonobstructing calculus in the inferior pole the right kidney. There is no hydronephrosis. Urinary bladder is within normal limits given degree of distention. Moderate amount of stool is noted within the colon. There is moderate sigmoid diverticulosis without adjacent inflammatory changes. No evidence for bowel obstruction or inflammation. Vascular findings: Proximal aorta measures 2.8 x 2.3 cm. Origin of the celiac axis and superior mesenteric artery are widely patent. Minor calcification is noted at the origins. Mild calcified and noncalcified atheromatous plaque is identified at the origin of the right renal artery. There is mild stenosis of the proximal right renal artery. 2 left-sided renal arteries are visualized. Superior renal artery on the left is patent and diminutive in caliber. The larger inferior left renal artery has moderate calcified atheromatous plaque at the origin. There is symmetric perfusion of the kidneys. There is mild to moderate stenosis of the inferior mesenteric artery with poststenotic dilatation measuring 4 mm. Moderate calcified and noncalcified atheromatous plaque is identified. Right common femoral artery is ectatic measuring up to 14 mm. Moderate calcified and noncalcified atheromatous plaque is identified involving the common femoral artery. The right external carotid artery is widely patent with few areas of calcified plaque. Moderate multifocal stenosis is identified involving the right internal iliac artery secondary to calcified and noncalcified atheromatous plaque. Right common femoral artery is widely patent. There is complete occlusion of the right superficial femoral artery graft. The deep femoral artery is patent. There is reconstitution of the popliteal artery distal to the occluded graft. Three-vessel runoff is identified in the right lower extremity. There is moderate skin thickening and subcutis edema involving the right lower extremity. Left common iliac artery is normal in course and caliber with minor calcified plaque. Left external carotid artery is widely patent. Left internal carotid artery demonstrates mild multifocal irregularity secondary to calcified and noncalcified atheromatous plaque. Left common femoral artery is patent. Deep femoral artery is patent with mild multifocal stenosis. There is occlusion of the left superficial femoral artery secondary to calcified and noncalcified atheromatous plaque with reconstitution at the level of the popliteal artery. Moderate multifocal irregularity of the popliteal artery is identified. A three-vessel runoff is identified in the left lower extremity with patent dorsalis pedis artery. IMPRESSION: 1. Right superficial femoral artery stent graft is identified and completely occluded. There is reconstitution distally at the level of the right popliteal artery with patent three-vessel runoff of the right leg. 2. There is occlusion of the left superficial femoral artery with distal reconstitution at the level of the popliteal artery. There is moderate irregularity of the popliteal artery with patent three-vessel runoff of the left leg. 3. There is mild to moderate stenosis of the proximal internal mesenteric artery. There is mild to moderate stenosis of the inferior left renal artery. 4. Bilateral adrenal myelolipomas. 5. Indeterminate cyst in the inferior pole the left kidney measuring 13 x 10 mm. Further characterization with nonemergent renal ultrasound is recommended. Electronically signed by: Renetta Shanks MD (07/08/2018 3:58 PM) [facility]
[2018-07-08] MEDS ORDERED: HYDR-3164 PO (16:18)
[2018-07-08] MEDS ORDERED: SENN-121 PO (16:18)
[2018-07-08] MEDS ORDERED: OXYC1TAB15 PO (16:24)
[2018-07-08] MEDS ORDERED: oxyCODONE/APAP 5/325 1 TAB TABLET PO ONE (16:45)
== END 2018-07-08 17:36 | disposition home or self-care (01) ==
LOC: ER 13:29
DX: R60.0 Localized edema (principal); I48.91 Unspecified atrial fibrillation; I11.0 Hypertensive heart disease with heart failure; I50.9 Heart failure, unspecified; Z86.73 Personal history of transient ischemic attack (TIA), and cerebral infarction without residual deficits; Z86.718 Personal history of other venous thrombosis and embolism; Z87.442 Personal history of urinary calculi; Z90.710 Acquired absence of both cervix and uterus; Z90.49 Acquired absence of other specified parts of digestive tract; Z88.1 Allergy status to other antibiotic agents; Z88.2 Allergy status to sulfonamides; Z88.5 Allergy status to narcotic agent
CPT/HCPCS: 36415; 75635; 80053; 83605; 83735; 85025; 85610; 85730; 93005; 93971; 96374; 99284; J3010; J7030; Q9967

== ENCOUNTER → 2018-12-31 | Day surgery (SDC) | payer OTHER ==
[~2018-12-31] VITALS: Ht 160 cm; Wt 81.5 kg
[~2018-12-31] MED LIST changes: +ASPI81TA50 PO; +BUPIVAC MPF-EPI 0.5%-1:200000 30 ML VIAL. ONE; +DEXAMETHASONE SOD PHOS 20 MG/5 ML VIAL. ONE; +IV RINGERS,LACTATED 1000ML 1,000 ML IV SCH; +LIDOCAINE 2% PF 5 ML VIAL. ONE; +NEOMY/BACITR/POLYMYXIN OINT PACKET. TP ONE; +ONDANSETRON PF 4 MG/2 ML VIAL. IV PRN; +ONDANSETRON PF 4 MG/2 ML VIAL. ONE; +PROCHLORPERAZINE 10 MG/2 ML VIAL. IV PRN; +PROPOFOL 20 ML IV ONE; +SENN-121 PO; +SEVOFLURANE 31 TO 60 MINUTES. IH ONE; +fentaNYL PF VIAL 100 MCG/2 ML VIAL IV PRN; +oxyCODONE/APAP 5/325 1 TAB TABLET PO ONE
[2018-12-31 10:27] LABS: BASO # 0.1 x10^3/uL (0.0-0.2); BASO % 1 % (0-3); EOS # 0.2 x10^3/uL (0.0-0.7); EOS % 1 % (0-3); HEMATOCRIT 40.7 % (36.0-47.0); LYMPH # 1.5 x10^3/uL (1.0-4.8); LYMPH % 13 % (24-48); MEAN CORPUSCULAR HEMOGLOBIN 26 pg (25-35); MEAN CORPUSCULAR HGB CONC 32 g/dL (31-37); MEAN CORPUSCULAR VOLUME 82 fL (79-100); MONO # 0.7 x10^3/uL (0.0-1.1); MONO % 6 % (0-9); NEUT # 9.2 x10^3/uL (1.8-7.7); NEUT % 79 % (31-73); PLATELET COUNT 197 x10^3/uL (140-400); RED BLOOD COUNT 4.99 x10^6/uL (3.50-5.40); RED CELL DISTRIBUTION WIDTH 17.2 % (11.5-14.5); WHITE BLOOD COUNT 11.7 x10^3/uL (4.0-11.0)
[2018-12-31 10:51] LABS: GFR 55.1
--- NOTE | 2018-12-31 12:11 | DISCH ---
DISCHARGE INSTRUCTIONS Condition on Discharge Condition on Discharge: Stable Activity After Discharge Activity Instructions for Disc: Resume previous activity, Activity as tolerated Lifting Instructions after Dis: No heavy lifting, No pulling or pushing Exercise Instruction after Dis: Progress as tolerated Driving Instructions after Dis: Do not drive Weight Bearing Status after Di: Full weight bearing, As tolerated Diet after Discharge Diet after Discharge: Regular Diet Texture: Regular Swallowing Supervision: None needed Wound Incision Care Wound/Incision Care: Reinforce dressing PRN Checks after Discharge Checks after discharge: Check your Temp as needed Follow-Up Follow up with: Christopher 01/09 IZABELLA JACOME MD Dec 31, 2018 12:11
--- NOTE | 2018-12-31 12:15 | PDOC ---
BRIEF OPERATIVE NOTE Date: Dec 31, 2018 Pre-Op Diagnosis chronic skin lesion RUE Post-Op Diagnosis same Procedure Performed excision Surgeon Christopher Anesthesia Type: General (LMA) Blood Loss 5cc IV Fluid 400cc Specimens Obtained skin and subcutaneous tissue RUE 4x2x1 cm Findings cystic change Complications none Operative Note Wk # [id number] IZABELLA JACOME MD Dec 31, 2018 12:15
--- NOTE | 2018-12-31 12:47 | OP ---
DATE OF SURGERY: 12/31/2018 PREOPERATIVE DIAGNOSIS: Chronic nonhealing skin lesion, right upper extremity. POSTOPERATIVE DIAGNOSIS: Chronic nonhealing skin lesion, right upper extremity. PROCEDURE: Excision of chronic nonhealing skin lesion, right upper extremity. SURGEON: Izabella Jacome MD ANESTHESIA: General LMA. ESTIMATED BLOOD LOSS: 5. INTRAVENOUS FLUID: 400. SPECIMEN: Skin and subcutaneous tissue, right upper extremity 4 x 2 x 1 cm. DESCRIPTION OF PROCEDURE: The patient brought to the OR, given a general LMA and the right upper extremity prepped and draped in usual sterile fashion. The wound was gently probed to establish the extent of the cavity. It was then outlined with the marking pen, infiltrated with local anesthetic, and incised. The skin and underlying process were removed en bloc. Culture made. Hemostasis with cautery. Wound closed with interrupted vertical mattress stitches of 3-0 nylon. A sterile dressing applied. The patient was awakened from her anesthetic and taken to the recovery room in satisfactory condition. IZABELLA JACOME MD DR: MALCOLM/isela JOB#: [id number] / [id number]
--- NOTE | 2019-01-01 16:06 | PATHOLOGY ---
[facility] Accession Number: [id number] . 01 Material submitted: . arm - SKIN AND SUBCUTANEOUS TISSUE RIGHT UPPER EXTREMITY. Modifiers: right, upper . 02 Diagnosis: Skin and subcutaneous tissue, right upper extremity lesion excision: - Follicular cyst, infundibular type, with associated fibrosis, chronic inflammation, and focal foreign body giant cell reaction. (JPM:air grinder; 01/01/2019) MBR/01/01/2019 . 02 Comment: There is no evidence of malignancy. (JPM:air grinder; 01/01/2019) . 02 Electronically signed: . Chung Duenas MD, Pathologist NPI- [id number] . 01 Gross description: . Received in formalin, labeled "Flaquita Avila, skin and subcutaneous tissue, right upper extremity", is an unoriented ellipse of dominguez-pink skin measuring 4.0 x 1.4 cm with underlying subcutaneous tissue excised to a depth of 1.4 cm. The resection margins are inked black. The skin surface has an eccentric 0.7 x 0.3 cm defect that is contiguous with a 1.0 x 0.7 x 0.6 cm cyst filled with adams-white keratinaceous material. Representatively submitted in A1-A2. ([facility]; 12/31/2018) SHS/SHS . 02 Pathologist provided ICD-10: L72.8, L90.5, L08.9, L98.8 . 02 CPT . 218312 Specimen Comment: A courtesy copy of this report has been sent to Specimen Comment: [phone], . Specimen Comment: Report sent to / DR PAREKH Performed at: [address] [place] [address] [address], [place], [place] [id number] MD Ethan Lewis MD Phone: [phone] Performed at: [address] [id number] MD Chung Duenas MD Phone: [phone]
== END ==
LOC: SURG 09:37
PROVIDERS: ATTEND Surgery
DX: L72.8 Other follicular cysts of the skin and subcutaneous tissue (principal); L08.89 Other specified local infections of the skin and subcutaneous tissue; Z79.899 Other long term (current) drug therapy
CPT/HCPCS: 11424; 36415; 80048; 82040; 85025; 87071; 87075; J0696; J1100; J2001; J2405; J2704; J3490; A7015

== ENCOUNTER 2019-01-24 12:09 | Emergency (ER) | payer OTHER ==
[~2019-01-24] VITALS: Ht 160 cm; Wt 81.6 kg
[~2019-01-24 12:09] MED LIST changes: -BUPIVAC MPF-EPI 0.5%-1:200000 30 ML VIAL. ONE; -DEXAMETHASONE SOD PHOS 20 MG/5 ML VIAL. ONE; -IV RINGERS,LACTATED 1000ML 1,000 ML IV SCH; -LIDOCAINE 2% PF 5 ML VIAL. ONE; -NEOMY/BACITR/POLYMYXIN OINT PACKET. TP ONE; -ONDANSETRON PF 4 MG/2 ML VIAL. IV PRN; -ONDANSETRON PF 4 MG/2 ML VIAL. ONE; -PROCHLORPERAZINE 10 MG/2 ML VIAL. IV PRN; -PROPOFOL 20 ML IV ONE; -SEVOFLURANE 31 TO 60 MINUTES. IH ONE; -fentaNYL PF VIAL 100 MCG/2 ML VIAL IV PRN; -oxyCODONE/APAP 5/325 1 TAB TABLET PO ONE
[2019-01-24] MEDS ORDERED: fentaNYL PF VIAL 100 MCG/2 ML VIAL IV ONE (12:30)
[2019-01-24 12:51] LABS: BASO # 0.1 x10^3/uL (0.0-0.2); BASO % 1 % (0-3); EOS # 0.1 x10^3/uL (0.0-0.7); EOS % 1 % (0-3); HEMATOCRIT 41.9 % (36.0-47.0); HEMOGLOBIN 13.7 g/dL (12.0-15.5); LYMPH # 1.8 x10^3/uL (1.0-4.8); LYMPH % 22 % (24-48); MEAN CORPUSCULAR HEMOGLOBIN 26 pg (25-35); MEAN CORPUSCULAR HGB CONC 33 g/dL (31-37); MEAN CORPUSCULAR VOLUME 80 fL (79-100); MONO # 0.5 x10^3/uL (0.0-1.1); MONO % 6 % (0-9); NEUT # 5.8 x10^3/uL (1.8-7.7); NEUT % 70 % (31-73); PLATELET COUNT 204 x10^3/uL (140-400); RED BLOOD COUNT 5.23 x10^6/uL (3.50-5.40); RED CELL DISTRIBUTION WIDTH 16.1 % (11.5-14.5); WHITE BLOOD COUNT 8.3 x10^3/uL (4.0-11.0)
--- NOTE | 2019-01-24 13:02 | RAD ---
PORTABLE CHEST 1V Clinical Indication: High blood pressure. Comparison: AP chest, February 01, 2018. Findings: Atherosclerotic aortic arch. The cardiomediastinal silhouette is normal. Lungs are clear. There is no pneumothorax. No pleural effusion is appreciated. No acute bone abnormality. IMPRESSION: No acute cardiopulmonary process. Electronically signed by: Franko Millan MD (01/24/2019 12:59 PM) [facility]
[2019-01-24 13:04] LABS: CALCIUM 9.3 mg/dL (8.5-10.1); CREATININE 0.9 mg/dL (0.6-1.0); GFR 62.3; POTASSIUM 4.2 mmol/L (3.5-5.1)
[2019-01-24 13:10] LABS: ALBUMIN 3.4 g/dL (3.4-5.0); ALBUMIN/GLOBULIN RATIO 0.8 (1.0-1.7); MAGNESIUM 1.9 mg/dL (1.8-2.4); TOTAL BILIRUBIN 0.3 mg/dL (0.2-1.0); TOTAL PROTEIN 7.6 g/dL (6.4-8.2)
[2019-01-24] MEDS ORDERED: HYDROmorphone 2 MG/ML VIAL IV ONE (13:30)
[2019-01-24] MEDS ORDERED: hydrALAZINE 20 MG/ML VIAL. IVP ONE (13:30)
--- NOTE | 2019-01-24 13:50 | PHYS DOC ---
Past Medical History Past Medical History: A-Fib, CHF, CVA, DVT, Hypertension, Kidney Stone Additional Past Medical Histor: RIGHT SIDED RESIDUAL FROM CVA Past Surgical History: Cholecystectomy, Hysterectomy, Tonsillectomy Additional Past Surgical Histo: MULTIPLE KIDNEY STONES REMOVED Alcohol Use: None Drug Use: None Adult General Chief Complaint Chief Complaint: LOWER EXTREMITY SWELLING [facility] HPI Patient is a 68 year old female who presents with complaining of right leg pain and swelling. Patient states she has had chronic right lower extremity edema for years with multiple workup without finding days of her swelling. Patient state for the last 2 days she had increase of her chronic lower extremity pain as a constant pain that getting worse with movement and bearing weight. Patient states the pain is from knee to her toes as a sharp pain and rated her pain 10 over 10 and states she took hydrocodone without improvement of her pain. Patient denies injury, new focal neuro deficit, fever and chills, shortness of breath, chest pain. Review of Systems Review of Systems Constitutional: Denies fever or chills [] Eyes: Denies change in visual acuity, redness, or eye pain [] HENT: Denies nasal congestion or sore throat [] Respiratory: Denies cough or shortness of breath [] Cardiovascular: No additional information not addressed in HPI [] GI: Denies abdominal pain, nausea, vomiting, bloody stools or diarrhea [] : Denies dysuria or hematuria [] Musculoskeletal: Denies back pain, reports joint pain [] Integument: Denies rash or skin lesions [] Neurologic: Denies headache, focal weakness or sensory changes [] Endocrine: Denies polyuria or polydipsia [] All other systems were reviewed and found to be within normal limits, except as documented in this note. Current Medications Current Medications Current Medications Medications (Trade) Dose Ordered Sig/Flash Start Time Stop Time Status Last Admin Dose Admin Fentanyl Citrate (Fentanyl 2ml Vial) 50 mcg 1X ONCE 01/24/19 12:30 01/24/19 12:37 DC 01/24/19 12:53 50 MCG Hydralazine HCl (Apresoline Inj) 10 mg 1X ONCE 01/24/19 13:30 01/24/19 13:31 DC 01/24/19 13:54 10 MG Hydromorphone HCl (Dilaudid) 1 mg 1X ONCE 01/24/19 13:30 01/24/19 13:31 DC 01/24/19 13:54 1 MG Allergies Allergies Allergies Coded Allergies Type Severity Reaction Last Updated Verified Sulfa (Sulfonamide Antibiotics) Allergy Severe Anaphylaxis 12/31/18 Yes morphine Allergy Severe SWELLS UP AND CAN'T BREATHE 12/31/18 Yes levofloxacin Adverse Reaction Intermediate Nausea 12/31/18 Yes Physical Exam Physical Exam Constitutional: Well nourished, mild distress, non-toxic appearance. [] HENT: Normocephalic, atraumatic. Eyes: PERRLA, EOMI, conjunctiva normal, no discharge. [] Neck: Normal range of motion, no tenderness, supple, no stridor. [] Cardiovascular:Heart rate regular rhythm, no murmur [] Lungs & Thorax: Bilateral breath sounds clear to auscultation [] Extremities: Right lower extremity with 1+ edema and ankle and foot without deformity or sign of injury, no neurovascular deficit, normal range of motion, normal pulses. Neurologic: Alert and oriented X 3, right upper extremity chronic paralysis of facial droop . Current Patient Data Vital Signs Vital Signs Date Time Temp Pulse Resp B/P (MAP) Pulse Ox O2 Delivery O2 Flow Rate FiO2 01/24/19 13:54 72 213/111 01/24/19 12:12 97.4 21 96 Room Air 97.4 Lab Values Laboratory Tests Test 01/24/19 12:45 White Blood Count 8.3 x10^3/uL (4.0-11.0) Red Blood Count 5.23 x10^6/uL (3.50-5.40) Hemoglobin 13.7 g/dL (12.0-15.5) Hematocrit 41.9 % (36.0-47.0) Mean Corpuscular Volume 80 fL (79-100) Mean Corpuscular Hemoglobin 26 pg (25-35) Mean Corpuscular Hemoglobin Concent 33 g/dL (31-37) Red Cell Distribution Width 16.1 % (11.5-14.5) H Platelet Count 204 x10^3/uL (140-400) Neutrophils (%) (Auto) 70 % (31-73) Lymphocytes (%) (Auto) 22 % (24-48) L Monocytes (%) (Auto) 6 % (0-9) Eosinophils (%) (Auto) 1 % (0-3) Basophils (%) (Auto) 1 % (0-3) Neutrophils # (Auto) 5.8 x10^3/uL (1.8-7.7) Lymphocytes # (Auto) 1.8 x10^3/uL (1.0-4.8) Monocytes # (Auto) 0.5 x10^3/uL (0.0-1.1) Eosinophils # (Auto) 0.1 x10^3/uL (0.0-0.7) Basophils # (Auto) 0.1 x10^3/uL (0.0-0.2) Sodium Level 142 mmol/L (136-145) Potassium Level 4.2 mmol/L (3.5-5.1) Chloride Level 104 mmol/L (98-107) Carbon Dioxide Level 29 mmol/L (21-32) Anion Gap 9 (6-14) Blood Urea Nitrogen 21 mg/dL (7-20) H Creatinine 0.9 mg/dL (0.6-1.0) Estimated GFR (Cockcroft-Gault) 62.3 BUN/Creatinine Ratio 23 (6-20) H Glucose Level 101 mg/dL (70-99) H Calcium Level 9.3 mg/dL (8.5-10.1) Magnesium Level 1.9 mg/dL (1.8-2.4) Total Bilirubin 0.3 mg/dL (0.2-1.0) Aspartate Amino Transferase (AST) 13 U/L (15-37) L Alanine Aminotransferase (ALT) 13 U/L (14-59) L Alkaline Phosphatase 137 U/L (46-116) H Creatine Kinase 27 U/L (26-192) Troponin I Quantitative < 0.017 ng/mL (0.000-0.055) LE-Eez-R-Type Natriuretic Peptide 813 pg/mL (0-124) H Total Protein 7.6 g/dL (6.4-8.2) Albumin 3.4 g/dL (3.4-5.0) Albumin/Globulin Ratio 0.8 (1.0-1.7) L Laboratory Tests 01/24/19 12:45 Laboratory Tests 01/24/19 12:45 EKG EKG EKG interpreted by me. EKG at 1242 showed sinus rhythm with PVCs, left arnold axis, LVH with repolarization abnormality, no acute ST and T-wave abnormalities. Radiology/Procedures Radiology/Procedures [][facility] [address] [place] [address] IMAGING REPORT Signed PATIENT: NASIM APPIAH: [id number] : 1950 LOCATION: ER AGE: 68 SEX: F EXAM STATUS: REG ER ORD. PHYSICIAN: BONITA SHEPARD MD REASON: high blood pressure PROCEDURE: PORTABLE CHEST 1V PORTABLE CHEST 1V Clinical Indication: High blood pressure. Comparison: AP chest, February 01, 2018. Findings: Atherosclerotic aortic arch. The cardiomediastinal silhouette is normal. Lungs are clear. There is no pneumothorax. No pleural effusion is appreciated. No acute bone abnormality. IMPRESSION: No acute cardiopulmonary process. Electronically signed by: Franko Millan MD (01/24/2019 12:59 PM) [facility] DICTATED and SIGNED BY: FRANKO MILLAN MD DATE: 01/24/19 1250 Course & Med Decision Making Course & Med Decision Making Pertinent Labs and Imaging studies reviewed. (See chart for details) Evaluation of patient in ER showed 68-year-old female patient with chronic right lower extremity edema presented to ER with pain in her leg for 2 days that did not get better with hydrocodone. Patient uncomfortable but rated her pain 10 over 10. Patient had blood pressure more than 200 at arrival to ER that did not get better with pain medication. Patient treated with fentanyl and Dilaudid and hydralazine with improvement of pain and blood pressure. She was advised to follow-up with her primary care physician regarding chronic leg edema. I've spoken with the patient and/or caregivers. I've explained the patient's condition, diagnosis and treatment plan based on information available to me at this time. I've answered the patient's and/or caregivers questions and addressed any concerns. The patient and/or caregivers have a good understanding the patient's diagnosis, condition and treatment plan as can be expected at this point. Vital signs have been stabilized. The patient's condition is stable for discharge from the emergency department. The patient will pursue further outpatient evaluation with her primary care provider or other designated consulting physician as outlined in the discharge instructions. Patient and/or caregivers are agreeable to this plan of care and follow-up instructions have been explained in detail. The patient and/or caregivers have received these instructions in written format and expressed understanding of these discharge instructions. The patient and her caregivers are aware that if any significant change in condition or worsening of symptoms should prompt him to immediately return to this of the closest emergency department. If an emergent department is not readily available I would encourage him to call 911. Dragon Disclaimer Dragon Disclaimer This electronic medical record was generated, in whole or in part, using a voice recognition dictation system. Departure Departure Impression: Primary Impression: Lower extremity pain Additional Impressions: Leg edema, right Hypertensive urgency Elevated brain natriuretic peptide (BNP) level Disposition: HOME, SELF-CARE (at 1431) Condition: IMPROVED Referrals: NO PCP (PCP) Patient Instructions: Hypertension, Musculoskeletal Pain Additional Instructions: Do not take hydrocodone, take prescribed Percocet Follow-up with your primary care physician in 3-5 days Return to ER if not getting better Scripts Oxycodone/Apap 5-325 (PERCOCET 5-325 MG TABLET ) 1 Each Tablet 1 TAB PO PRN Q6HRS PRN for PAIN, #12 TAB 0 Refills Prov: BONITA SHEPARD MD 01/24/19 Critical Care Time Critical care time was 60 minutes exclusive of procedures. Problem Qualifiers Primary Impression: Lower extremity pain Laterality: right Qualified Codes: M79.604 - Pain in right leg BONITA SHEPARD MD Jan 24, 2019 13:50
[2019-01-24 14:15] VITALS: BP 175/77
[2019-01-24] MEDS ORDERED: OXYC1TAB15 PO (14:37)
--- NOTE | 2019-01-24 16:45 | EKG ---
[facility] [address] [place] [address] Test Date: 2019-01-24 Test Time: 12:42:23 Pat Name: NASIM APPIAH Department: Room: Gender: F Keyboard Operator: : 1950 Requested By: BONITA SHEPARD Order Number: [id number] Reading MD: Measurements Intervals [place] Rate: 74 P: [place]: QRS: -26 QRSD: 110 T: 118 QT: 400 QTc: 444 Interpretive Statements IRREGULAR RHYTHM, NO P-WAVE FOUND VENTRICULAR PREMATURE COMPLEX(ES) LEFTWARD AXIS LVH WITH REPOLARIZATION ABNORMALITY ABNORMAL ECG RI6.01 Unconfirmed report No previous ECG available for comparison
== END 2019-01-24 14:44 | disposition home or self-care (01) ==
LOC: ER 12:09
DX: R60.0 Localized edema (principal); M79.604 Pain in right leg; I16.0 Hypertensive urgency; R79.89 Other specified abnormal findings of blood chemistry; I48.91 Unspecified atrial fibrillation; I11.0 Hypertensive heart disease with heart failure; I50.9 Heart failure, unspecified; Z86.718 Personal history of other venous thrombosis and embolism; Z86.73 Personal history of transient ischemic attack (TIA), and cerebral infarction without residual deficits; Z87.442 Personal history of urinary calculi; Z90.49 Acquired absence of other specified parts of digestive tract; Z90.710 Acquired absence of both cervix and uterus; Z90.89 Acquired absence of other organs; Z88.2 Allergy status to sulfonamides; Z88.5 Allergy status to narcotic agent; Z88.1 Allergy status to other antibiotic agents
CPT/HCPCS: 36415; 71045; 80053; 82550; 83735; 83880; 84484; 85025; 93005; 96374; 96375; 99285; J0360; J1170; J3010

== ENCOUNTER 2019-11-11 22:12 | Inpatient (IN) | payer OTHER ==
[~2019-11-11] VITALS: Ht 160 cm; Wt 98.6 kg
[~2019-11-11 22:12] MED LIST changes: -DIGO125T PO; +DIGO125T3 PO; +SIMV20TA18 PO; -SIMV20TA3 PO
[2019-11-11] MEDS: fentaNYL PF VIAL 100 MCG/2 ML VIAL IVP PRN (23:24)
--- NOTE | 2019-11-12 | NUR ---
The patient, Flaquita Avila", 69 y/o, female admitted by ASHLEY CHEEK MD, was given written information regarding hospital policies, unit procedures and contact persons. She was transferred from [facility] and arrived at 2200 on 11/11/19. She was admitted to room 650. Valuables were checked and documented. Patient oriented to call light, telephone, unit policies, etc. Patient reports pain of 5/10 to RLE but states that her leg "always hurts" and that 5 is a tolerable level for her. She also reports that her 2 weeks ago and she moved into her daughter's (Vonda Mcdaniel) home. Patient became tearful when discussing this issue and admits that she has been depressed since his passing.
[2019-11-12 03:00] VITALS: BP 156/69
[2019-11-12 03:46] LABS: BASO % 1 % (0-3); EOS # 0.1 x10^3/uL (0.0-0.7); EOS % 2 % (0-3); HEMATOCRIT 23.3 % (36.0-47.0); HEMOGLOBIN 7.1 g/dL (12.0-15.5); LYMPH # 1.5 x10^3/uL (1.0-4.8); LYMPH % 23 % (24-48); MEAN CORPUSCULAR HEMOGLOBIN 21 pg (25-35); MEAN CORPUSCULAR HGB CONC 30 g/dL (31-37); MEAN CORPUSCULAR VOLUME 70 fL (79-100); MONO # 0.5 x10^3/uL (0.0-1.1); MONO % 8 % (0-9); NEUT # 4.3 x10^3/uL (1.8-7.7); NEUT % 66 % (31-73); PLATELET COUNT 250 x10^3/uL (140-400); RED BLOOD COUNT 3.34 x10^6/uL (3.50-5.40); WHITE BLOOD COUNT 6.4 x10^3/uL (4.0-11.0)
[2019-11-12 03:59] LABS: CALCIUM 8.1 mg/dL (8.5-10.1); CREATININE 0.9 mg/dL (0.6-1.0); GFR 62.1; POTASSIUM 4.2 mmol/L (3.5-5.1)
[2019-11-12] MEDS: fentaNYL PF VIAL 100 MCG/2 ML VIAL IVP PRN ×3 (05:19→14:15)
[2019-11-12 06:34] LABS: PLT ESTIMATE ADEQUATE (ADEQUATE)
[2019-11-12 06:35] LABS: ANISOCYTOSIS PRESENT; HYPOCHROMIA PRESENT; MICROCYTOSIS PRESENT
[2019-11-12 07:00] VITALS: BP 138/69
[2019-11-12] MEDS ORDERED: LISI-334 PO (08:23)
[2019-11-12] MEDS ORDERED: APIX2.5T PO (08:23)
[2019-11-12] MEDS ORDERED: HYDR-2759 (08:23)
[2019-11-12] MEDS ORDERED: NYST15CR2 TP (08:23)
[2019-11-12] MEDS ORDERED: POLYETHYLENE GLYCOL 3350 17 GM PACKET. PO PRN (11:00)
[2019-11-12] MEDS ORDERED: SENNOSIDES/DOCUSATE 8.6/50MG TABLET. PO PRN (11:00)
--- NOTE | 2019-11-12 11:11 | HP ---
ADMIT DATE: HISTORY OF PRESENT ILLNESS: The patient is a 69-year-old female patient who presented to the Emergency Room of [facility] with pain in her right lower extremity. 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 The pain has gotten a whole lot worse over the last couple of days. She has been taking hydrocodone for the pain without relief. She denied any other complaint. She rated her pain as an 8/10. She also stated that she has noted her leg is more swollen, so she was investigated in the Emergency Room of [facility] and has had venous Doppler ultrasound of the right lower extremity, which showed no evidence of deep vein thrombosis, found to have a popliteal cyst. There is some simple fluid collection in the medial popliteal fossa measuring 3.4 x 2.4 x 0.6 cm. Further investigation showed that the patient has severe microcytic hypochromic anemia. Her D-dimer was slightly elevated at 1.16 and however, her chemistry was generally unremarkable. PAST MEDICAL HISTORY: Significant for hypertension, kidney stones, multiple CVAs, congestive heart failure, atrial fibrillation and deep vein thrombosis. PAST SURGICAL HISTORY: Significant for tonsillectomy, total abdominal hysterectomy, cholecystectomy. ALLERGIES: SHE IS ALLERGIC TO SULFA DRUGS, LEVOFLOXACIN AND MORPHINE. MEDICATIONS: She is currently on following medications: She is on apixaban 2.5 mg daily, carvedilol 12.5 mg once a day, lisinopril 20 mg once a day, aspirin 81 mg once a day, hydrocodone/APAP 5/325 one tablet every 6 hours. She is on magnesium oxide 400 mg once a day, polyethylene glycol 17 grams daily, senna-S 1 capsule once a day, nystatin; triamcinolone cream applied topically twice a day. FAMILY HISTORY: Unremarkable. She is adopted and does not know her biological parents. SOCIAL HISTORY: She is . Her about 2 weeks ago. She currently lives with her daughter. She has a son and 1 daughter. She is an ex-smoker, quit 60 years ago. She used to smoke 2 packs a day for more than 30 years. She does not drink alcohol or use any recreational drugs. She used to work in a kitchen at the [employer]. REVIEW OF SYSTEMS: The patient did complain of blurring vision, wear glasses but denied any glaucoma or macular degeneration. Denied any earache, tinnitus or sensorineural deafness. Denied any nosebleeds, stuffy nose or postnasal drip. Denied any sore throat, sore tongue, toothache, hoarseness of voice or difficulty swallowing. Denied any nausea, vomiting, diarrhea or constipation. Denied any hematemesis, melena or hematochezia. Denied any dysuria, frequency or hematuria. Denied any chest pain, shortness of breath, orthopnea, paroxysmal nocturnal dyspnea. Denied any cough, phlegm or hemoptysis. Denied any shortness of breath, orthopnea or paroxysmal nocturnal dyspnea. PHYSICAL EXAMINATION: GENERAL: On arrival to the Emergency Room, she looked pale, but no jaundice, cyanosis or thyromegaly. No jugular venous distention. No lower limb edema. VITAL SIGNS: Her heart rate was 89, blood pressure was 161/88, temperature was 98.2, respiratory rate was 16 and oxygen saturation was 96%. HEAD, EYES, EARS, NOSE AND THROAT: Normocephalic, atraumatic. NECK: Supple. HEART: Showed normal first and second heart sounds with no gallop, rub or murmur. CHEST: Clear to auscultation. No crepitation or rhonchi. ABDOMEN: Distended, soft, nontender. No guarding or rigidity. No organomegaly. All hernial orifices intact. Bowel sounds normal. NEUROLOGIC: She was awake, alert, responding appropriately. She does have right-sided hemiparesis with marked fixed flexion contraction of the right upper extremity; however, the patient stated that she is able to ambulate without assistance or assistive devices. LABORATORY DATA: Showed a white cell count of 6800, hemoglobin 7.4, hematocrit 24.5, MCV 70 and platelet count 281,000. Her chemistry showed a serum sodium 144, potassium 4, chloride 109, bicarbonate 26, anion gap of 9, BUN 24, creatinine 1.1, estimated GFR was 49 mL per minute. Her glucose was 98, calcium was 8.7. Total bilirubin, AST, ALT, alkaline phosphatase were normal. Total protein was 6.7, albumin 3. Her D-dimer was high at 1.16. Her hemoglobin on 08/20/2019 was 11.3. ASSESSMENT AND PLAN: In summary, this is a 69-year-old female patient who was seen in the Emergency Room of [facility] with: 1. Worsening right lower extremity pain that apparently has been there for years. It worsened over the last 2 years. She described as sharp, shooting pain that comes and goes with muscle spasm. 2. She has multiple strokes. According to her, she has 3 strokes before and she has this right lower extremity pain. 3. She is known to have high blood pressure. 4. Multiple renal stones, which she underwent cystoscopies and lithotripsy and retrieval of her stones at [facility]. 5. She has microcytic hypochromic anemia with dramatic drop of her H and H from 11.3 and 36.3 on 08/20/2019 down to 7-7.1 and 23 with an MCV of only 70, although her white cell count and platelets are normal. The patient is on apixaban and she is also on aspirin, but denied any hematemesis, melena or hematochezia. My plan is to arrange for her to have stool for occult blood. I will check her iron stores. I will arrange for her to have a CT scan of the abdomen and pelvis with oral and IV contrast and consult the Gastroenterology team and decide on further management accordingly. ASHLEY CHEKE MD DR: ANTONIO/isela JOB#: [id number] / [id number]
--- NOTE | 2019-11-12 11:30 | PN ---
DATE: 11/12/2019 SUBJECTIVE: The patient is resting, slightly propped up in bed, in no apparent distress. She continued to complain of sharp shooting pain in her right lower extremity. I spoke with her daughter and apparently she was supposed to take apixaban 2.5 mg twice a day. She was taking it only once a day. She apparently has had a cystoscopy and retrograde pyelography, stent retrieval and removal of stone from her kidney, although she did not notice the side whether it is right or left. At least at that time, she was not told that she has anemia. PHYSICAL EXAMINATION: GENERAL: When I examined her, she looked well and was clearly not pale, not jaundiced or cyanosed. No lymphadenopathy, no thyromegaly. No jugular venous distention. No lower limb edema. VITAL SIGNS: Her heart rate was 75, blood pressure was 138/69, temperature 97.6, respiratory rate was 16, and oxygen saturation was 96%. The rest of clinical exam is stable. NEUROLOGIC: She does have right-sided hemiparesis with fixed flexion contracture of the right upper extremity, more so than the right lower extremity. LABORATORY DATA: Her lab work this morning showed that her white cell count was 6400, hemoglobin is 7.1, hematocrit 23.3, MCV 70 and platelet count 250,000. Her chemistry showed a serum sodium 142, potassium 4.2, chloride 109, bicarbonate 24, anion gap of 9, BUN 21, creatinine 0.9, estimated GFR was 62 mL per minute. Her glucose 105 and calcium was 8.1. ASSESSMENT: In summary, this is a 69-year-old female patient who presented to the Emergency Room of [facility] with severe sharp shooting pain in her right lower extremity. The pain apparently has been there for years, but felt to be secondary to her right-sided hemiplegia; however, for some reason, the pain has worsened over the last 3 days prior to admission. Incidentally, she was found to have severe microcytic hypochromic anemia with her hemoglobin and hematocrit dropped within the span of 2 months from 11.3 on 08/20/2019 down to 7.1 today. She has microcytic anemia with an MCV of only 70. She is on apixaban. She takes only once. She is also on a baby aspirin, but denied taking any nonsteroidal anti-inflammatory medication. She denied any hematemesis, melena or hematochezia. Denied any hemoptysis or epistaxis. According to her daughter, she had surgery done at [facility] where she had a stent that was removed and another replaced and the stone was removed. At that time, she was not told that she has anemia. My plan is to check her stool for occult blood. I will arrange for her also to have a CT scan of the abdomen and pelvis as she had had a CT scan of the abdomen and pelvis done on 08/20/2019. At that time, she had 1 cm distal right ureteral calculus seen, which is causing moderate obstruction of the right collecting system. I would check her serum iron, total iron binding capacity, and serum ferritin. I did start her on IV fluid and arrange for CT scan of the abdomen and pelvis with oral and IV contrast. I consulted the Gastroenterology team. I will hold her apixaban for now and we will request medical records from [facility]. We will decide on further management accordingly. ASHLEY CHEEK MD DR: ANTONIO/isela JOB#: [id number] / [id number]
[2019-11-12 11:36] VITALS: BP 155/73
--- NOTE | 2019-11-12 11:58 | PDOC2 ---
GI CONSULT Reason For Consult: microcytic anemia HPI: HPI: 69 y/o female evaluated at [facility] for worsening/chronic RLE pain and swelling. No DVT on imaging. Noted w/ iron deficiency anemia - Hgb 7.1 w/ no significant history of anemia on review of past labs. BUN 21. CT A/P and clear liquids ordered per primary. Denies reflux/heartburn, dysphagia, n/v, hematemesis, abd pain, diarrhea, hematochezia, melena, or weight loss. Sometimes has constipation improved w/ stool softeners. Had past PEG placement/removal w/ Dr. Cook in 2015. No previous colonoscopy though recommended as outpt after we saw her for sigmoid diverticulitis in 2018. S/p cholecystectomy. No liver, pancreas, or PUD history. Past encounters note vomiting and constipation. On Eliquis x 8 months, thinks was on Plavix before that. Also on ASA. Takes hydrocodone for pain, denies NSAIDs. Says she fell last week and landed on her left ribs. Unaware of any past h/o anemia - thinks had labs checked about 4 months ago. She is not interested in EGD or colonoscopy - says she woke up during PEG placement and didn't like it. PMH: PMH: A Fib, CHF, PAD, COPD, CVA, OA, nephrolithiasis, diverticulitis urinary stents, lithotripsy, femoral stent, incarcerated incisional hernia repair, appendectomy, cholecystectomy, tubal ligation, hysterectomy, PEG placement/removal FH: Family History: Other (adopted) Social History: Smoke: Quit ALCOHOL: none Drugs: None ROS: GEN: Denies fevers, chills, sweats HEENT: Denies blurred vision, sore throat CV: Denies chest pain RESP: Denies shortness of air, cough GI: Per HPI : Denies hematuria, dysuria ENDO: Denies weight changes NEURO: Denies confusion, dizziness MSK: Denies weakness, joint pain/swelling SKIN: Denies jaundice, pruritus Vitals: Vitals: Vital Signs Date Time Temp Pulse Resp B/P (MAP) Pulse Ox O2 Delivery O2 Flow Rate FiO2 11/12/19 11:36 98.2 69 17 155/73 (100) 94 Room Air 98.2 Labs: Labs: Laboratory Tests Test 11/12/19 03:00 White Blood Count 6.4 x10^3/uL (4.0-11.0) Red Blood Count 3.34 x10^6/uL (3.50-5.40) Hemoglobin 7.1 g/dL (12.0-15.5) Hematocrit 23.3 % (36.0-47.0) Mean Corpuscular Volume 70 fL (79-100) Mean Corpuscular Hemoglobin 21 pg (25-35) Mean Corpuscular Hemoglobin Concent 30 g/dL (31-37) Red Cell Distribution Width 18.0 % (11.5-14.5) Platelet Count 250 x10^3/uL (140-400) Neutrophils (%) (Auto) 66 % (31-73) Lymphocytes (%) (Auto) 23 % (24-48) Monocytes (%) (Auto) 8 % (0-9) Eosinophils (%) (Auto) 2 % (0-3) Basophils (%) (Auto) 1 % (0-3) Neutrophils # (Auto) 4.3 x10^3/uL (1.8-7.7) Lymphocytes # (Auto) 1.5 x10^3/uL (1.0-4.8) Monocytes # (Auto) 0.5 x10^3/uL (0.0-1.1) Eosinophils # (Auto) 0.1 x10^3/uL (0.0-0.7) Basophils # (Auto) 0.0 x10^3/uL (0.0-0.2) Platelet Estimate Adequate (ADEQUATE) Hypochromasia Present Anisocytosis Present Microcytosis Present Sodium Level 142 mmol/L (136-145) Potassium Level 4.2 mmol/L (3.5-5.1) Chloride Level 109 mmol/L (98-107) Carbon Dioxide Level 24 mmol/L (21-32) Anion Gap 9 (6-14) Blood Urea Nitrogen 21 mg/dL (7-20) Creatinine 0.9 mg/dL (0.6-1.0) Estimated GFR (Cockcroft-Gault) 62.1 Glucose Level 105 mg/dL (70-99) Calcium Level 8.1 mg/dL (8.5-10.1) Iron Level 13 ug/dL (50-170) Total Iron Binding Capacity 295 ug/dL (250-450) Iron Saturation 4 % (15-34) Ferritin 9 ng/mL (8-252) Allergies: Coded Allergies: Sulfa (Sulfonamide Antibiotics) (Verified Allergy, Severe, Anaphylaxis, 12/31/18) morphine (Verified Allergy, Severe, SWELLS UP AND CAN'T BREATHE, 12/31/18) levofloxacin (Verified Adverse Reaction, Intermediate, Nausea, 12/31/18) Medications: Current Medications Medications (Trade) Dose Ordered Sig/Flash Route PRN Reason Start Time Stop Time Status Last Admin Dose Admin Fentanyl Citrate (Fentanyl 2ml Vial) 50 mcg PRN Q3HRS PRN IVP PAIN 11/11/19 22:45 11/12/19 08:56 PE: GEN: NAD HEENT: Atraumatic, PERRL LUNGS: CTAB HEART: RRR ABD: NABS, S/ND/NT EXTREMITY: trace edema BLE SKIN: pale NEURO/PSYCH: A & O 3 A/P: A/P: RLE pain MAYELA - new CRC screen - none Diverticular disease H/o constipation - controlled H/o PEG placement/removal S/p cholecystectomy H/o A Fib and CVAs on Eliquis and ASA PAD Chronic pain on hydrocodone -- Await CT. Would order type and screen, transfuse to keep Hgb > 7. Empiric PPI. Continue constipation treatment. Tells me not interested in endoscopic evaluation. Will review w/ Dr. Cook. NIMA MONTANEZ November 12, 2019 11:58
[2019-11-12] MEDS ORDERED: BISACODYL 5 MG TABLET.DR. PO PRN (12:00)
[2019-11-12] MEDS ORDERED: NYSTATIN 100,000 UNIT/GM TOPICAL CREAM 15GM TUBE. TP SCH (12:00)
[2019-11-12] MEDS ORDERED: IOHEXOL 240 MG/ML 50ML VIAL. PO ONE (12:30)
[2019-11-12] MEDS ORDERED: IOHEXOL 300 MG/ML 100ML VIAL. IV ONE (12:30)
[2019-11-12] MEDS ORDERED: CONTRAST GIVEN. MC PRN (12:45)
[2019-11-12] MEDS: CARVEDILOL 12.5 MG TABLET. PO SCH ×2 (12:58→20:58)
[2019-11-12] MEDS: LISINOPRIL 20 MG TABLET PO SCH (12:58)
[2019-11-12] MEDS: HYDROcodone/APAP 5/325MG 1 TAB TABLET PO PRN ×2 (13:03→21:04)
--- NOTE | 2019-11-12 13:06 | NUR ---
SS following up with discharge planning. SS reviewed pt chart and discussed with pt RN. Pt is from home with daughter and is currently on room air. SS will continue to follow for discharge planning.
[2019-11-12] MEDS: NYSTATIN 100,000 UNIT/GM TOPICAL CREAM 15GM TUBE. TP SCH ×2 (14:44→21:00)
[2019-11-12] MEDS: IV DEXTROSE 5 %-0.2 % NACL 1,000 ML IV SCH (14:44)
[2019-11-12] MEDS: TRIAMCINOLONE ACETONIDE 0.1% TOPICAL CREAM 15GM TUBE. TP SCH ×2 (14:44→21:00)
--- NOTE | 2019-11-12 15:17 | RAD ---
EXAM: CT Abdomen and Pelvis with IV contrast CLINICAL HISTORY: MICROCYTIC ANEMIA AND HYDRONEPHROSIS COMPARISON: 07/08/2018, 07/01/2018 TECHNIQUE: Helical CT of the abdomen and pelvis was performed following the administration of intravenous contrast. Axial, coronal and sagittal reformatted images were generated. PQRS compliance statement - One or more of the following individualized dose reduction techniques were utilized for this study: 1. Automated exposure control 2. Adjustment of the mA and/or kV according to patient size 3. Use of iterative reconstruction technique FINDINGS: Lower chest: Linear and bandlike opacities in the lower lobes and lingula likely scarring/atelectasis. Lipomatous hypertrophy of the interatrial septum. Coronary artery and aortic root calcifications are seen. Abdomen and Pelvis: No focal liver lesion. There has been a cholecystectomy. No biliary duct dilatation. Pancreas is unremarkable. Spleen is normal in appearance. Bilateral adrenal myelolipomas are again seen. Additionally, nodular appearance of the right adrenal gland is stable. Multiple bilateral renal cystic lesions are seen. Multiple bilateral renal cysts are seen. Indeterminate left lower pole hypodense renal lesion measures 13 mm. In addition there is a 1.3 x 1.4 cm hypodense renal lesion at the inferior pole the right kidney, indeterminate, new compared to prior examination. No hydronephrosis or hydroureter. Bladder is unremarkable. Contrast is seen within the renal calyces bilaterally. Colonic diverticula are seen. No evidence for acute diverticulitis. Moderate colonic stool content is seen. No small or large bowel dilatation. Appendix is normal. Small fat-containing periumbilical hernia is seen. Retroaortic left renal vein. Dense atherosclerotic calcifications of aorta are seen. No abdominal or pelvic lymphadenopathy. No abdominal or pelvic ascites. Bones: Grade 1 anterolisthesis of L4 on L5. Degenerative changes of spine and hips are seen. No aggressive osseous lesion. IMPRESSION: 1. Moderate colonic stool content. No bowel obstruction. 2. Colonic diverticulosis without evidence for acute diverticulitis. 3. Bilateral indeterminate hypodense renal lesions measuring greater than simple fluid are seen, new in the right lower pole, and further evaluation with ultrasound or MRI is recommended if not performed previously. 4. Bilateral adrenal myelolipoma is are again seen, essentially stable. Electronically signed by: German Bernstein MD (11/12/2019 3:14 PM) [facility]
[2019-11-12 15:22] VITALS: BP 155/66
[2019-11-12] MEDS: FERROUS SULFATE 325 MG TABLET. PO SCH (17:32)
[2019-11-12 19:00] VITALS: BP 132/64
[2019-11-12 23:00] VITALS: BP 115/59
[2019-11-13] VITALS (14 sets, daily range): BP systolic 129–172; BP diastolic 64–92
[2019-11-13] MEDS: IV DEXTROSE 5 %-0.2 % NACL 1,000 ML IV SCH ×2 (02:34→18:21)
[2019-11-13] MEDS: HYDROcodone/APAP 5/325MG 1 TAB TABLET PO PRN ×2 (02:34→15:53)
[2019-11-13 05:23] LABS: HEMOGLOBIN 6.4 g/dL (12.0-15.5)
[2019-11-13 05:24] LABS: HEMATOCRIT 20.8 % (36.0-47.0)
--- NOTE | 2019-11-13 06:16 | NUR ---
NURSING NOTE Critical Hgb and Hct called at 0525. Call to Dr. Arizmendi at 0545, page at [phone], call at [phone], awaiting call back. Call placed to Dr. Cook at 0615, awaiting call back.
[2019-11-13] MEDS ORDERED: CYANOCOBALAMIN (VITAMIN B-12) 1,000 MCG/ML VIAL IM ONE (07:30)
[2019-11-13] MEDS: FERROUS SULFATE 325 MG TABLET. PO SCH ×2 (09:55→18:21)
[2019-11-13] MEDS: MAGNESIUM OXIDE 400 MG TABLET PO SCH (09:55)
[2019-11-13] MEDS: LISINOPRIL 20 MG TABLET PO SCH (09:57)
[2019-11-13] MEDS: PANTOPRAZOLE 40 MG TABLET.DR. PO SCH (09:57)
[2019-11-13] MEDS: CYANOCOBALAMIN (VITAMIN B-12) 1,000 MCG TABLET. PO SCH (09:58)
[2019-11-13] MEDS: POLYETHYLENE GLYCOL 3350 17 GM PACKET. PO SCH (09:58)
[2019-11-13] MEDS: CARVEDILOL 12.5 MG TABLET. PO SCH ×2 (09:58→22:45)
--- NOTE | 2019-11-13 10:53 | PN ---
DATE: SUBJECTIVE: The patient is resting, slightly propped up in bed, in no apparent distress. She is awake, alert. Denied any complaint. Her H and H have dropped down further to 6.4 and 20.8 and she is typed and cross matched and received 2 units of packed RBCs. Her serum ferritin is extremely low. The patient is not interested in any colonoscopy or endoscopy. PHYSICAL EXAMINATION: GENERAL: When I examined her this morning, she looked pale, but no jaundice, cyanosis or thyromegaly. No jugular venous distention. No limb edema. VITAL SIGNS: Her heart rate was 65, blood pressure was 130/75, temperature 97.9, respiratory rate was 18 and oxygen saturation was 98%. HEAD, EYES, EARS, NOSE AND THROAT: Normocephalic, atraumatic. NECK: Supple. HEART: Showed normal first and second heart sounds. No gallop, rub or murmur. CHEST: Clear to auscultation. No crepitation or rhonchi. ABDOMEN: Distended, soft, nontender. No guarding or rigidity. No organomegaly. All hernial orifices intact. Bowel sounds normal. NEUROLOGIC: She was awake, alert, responding appropriately. All her cranial nerves intact. She has right-sided hemiparesis. Her intake over the last 24 hours and output incompletely recorded. LABORATORY DATA: Her lab work as of this morning showed that her hemoglobin was 6.4, hematocrit 20.8. ASSESSMENT: Severe iron deficiency anemia without obvious source of bleeding. Her H and H have drifted down further to 6.4 and 20.8. She has had scheduled to be transfused 2 units of packed RBCs. Today, she is not interested in any endoscopy or colonoscopy. I will arrange for her to repeat her lab works tomorrow and perhaps transfuse her and infuse some Venofer and probably discharge her home tomorrow. ASHLEY CHEEK MD DR: ANTONIO/isela JOB#: [id number] / [id number]
--- NOTE | 2019-11-13 11:09 | PDOC ---
Subjective: Subjective: No complaints. No bleeding. Does not want EGD or colonoscopy. We discussed possibility of need for repeat transfusions, etc. - "well we'll cross that bridge when we come to it." Objective: Vital Signs: Vital Signs Date Time Temp Pulse Resp B/P (MAP) Pulse Ox O2 Delivery O2 Flow Rate FiO2 11/13/19 09:58 65 130/75 11/13/19 07:42 97.9 18 98 Room Air 97.9 Labs: Laboratory Tests Test 11/12/19 12:10 11/13/19 04:20 Vitamin B12 Level 277 pg/mL Hemoglobin 6.4 g/dL Hematocrit 20.8 % Mean Corpuscular Hemoglobin Concent 31 g/dL PE: GEN: NAD LUNGS: CTAB HEART: RRR ABD: S/ND/NT NEURO/PSYCH: A & O 3 A/P: MAYELA, borderline low B12 - started replacement A Fib, h/o CVAs, PAD - Eliquis and ASA on hold -- Declines EGD and colonoscopy. Nurse says lab has questions about transfusion - two units ordered - would give both. Defer further need for transfusion/monitoring of Hgb to Dr. Arizmendi. Hemodynamically unstable?: No Is patient in severe pain?: No Is NPO status required?: No NIMA MONTANEZ November 13, 2019 11:09
[2019-11-13] MEDS: TRIAMCINOLONE ACETONIDE 0.1% TOPICAL CREAM 15GM TUBE. TP SCH ×2 (13:13→22:45)
[2019-11-13] MEDS: NYSTATIN 100,000 UNIT/GM TOPICAL CREAM 15GM TUBE. TP SCH ×2 (13:14→22:45)
--- NOTE | 2019-11-13 13:21 | NUR ---
SS following up with discharge planning. SS reviewed pt chart and discussed with pt RN. Pt is currently on room air and getting two units of blood today. SS will continue to follow for discharge planning.
[2019-11-13 21:13] LABS: HEMOGLOBIN 9.4 g/dL (12.0-15.5)
[2019-11-14] MEDS: HYDROcodone/APAP 5/325MG 1 TAB TABLET PO PRN (00:35)
[2019-11-14 03:00] VITALS: BP 124/80
[2019-11-14 04:55] LABS: HEMOGLOBIN 9.3 g/dL (12.0-15.5); RED BLOOD COUNT 4.07 x10^6/uL (3.50-5.40); RED CELL DISTRIBUTION WIDTH 19.3 % (11.5-14.5)
[2019-11-14 05:28] LABS: ALBUMIN 2.7 g/dL (3.4-5.0); ALBUMIN/GLOBULIN RATIO 0.8 (1.0-1.7); CALCIUM 8.1 mg/dL (8.5-10.1); POTASSIUM 3.7 mmol/L (3.5-5.1); TOTAL BILIRUBIN 0.2 mg/dL (0.2-1.0); TOTAL PROTEIN 6.1 g/dL (6.4-8.2)
[2019-11-14] MEDS: IV DEXTROSE 5 %-0.2 % NACL 1,000 ML IV SCH (05:33)
[2019-11-14 07:42] VITALS: BP 168/98
[2019-11-14] MEDS: TRIAMCINOLONE ACETONIDE 0.1% TOPICAL CREAM 15GM TUBE. TP SCH (09:00)
[2019-11-14] MEDS: POLYETHYLENE GLYCOL 3350 17 GM PACKET. PO SCH (09:00)
[2019-11-14] MEDS: NYSTATIN 100,000 UNIT/GM TOPICAL CREAM 15GM TUBE. TP SCH (09:00)
[2019-11-14] MEDS: CARVEDILOL 12.5 MG TABLET. PO SCH (10:23)
[2019-11-14] MEDS: CYANOCOBALAMIN (VITAMIN B-12) 1,000 MCG TABLET. PO SCH (10:23)
[2019-11-14] MEDS: FERROUS SULFATE 325 MG TABLET. PO SCH (10:24)
[2019-11-14] MEDS: LISINOPRIL 20 MG TABLET PO SCH (10:24)
[2019-11-14] MEDS: MAGNESIUM OXIDE 400 MG TABLET PO SCH (10:24)
[2019-11-14] MEDS: PANTOPRAZOLE 40 MG TABLET.DR. PO SCH (10:24)
[2019-11-14] MEDS ORDERED: FERR325T14 PO (10:56)
[2019-11-14] MEDS ORDERED: ASCO500C PO (10:56)
--- NOTE | 2019-11-14 11:28 | DS ---
DATE OF DISCHARGE: 11/14/2019 HOSPITAL COURSE: The patient is a 69-year-old female patient, who was seen originally at [facility] Emergency Room for pain in her right lower extremity. She was also found to have severe microcytic hypochromic anemia; and therefore, she was transferred to [facility] for further evaluation and treatment. She apparently had had an obstructing calculus in her right ureter that was treated at [facility]. At that time, she has also hydronephrosis that apparently had resolved. CT scan showed no evidence of any stones or hydronephrosis. There is no evidence of any retroperitoneal bleed. The patient denied any hematemesis, melena, hematochezia. Denied any hemoptysis or epistaxis. She is on apixaban for deep vein thrombosis and baby aspirin. She was taking it only once a day. She said she was taking it for deep vein thrombosis diagnosed about 6 months ago. On arrival to the [facility] for further testing, her hemoglobin dropped down further to 6.4 and 20.8. She was seen in consultation by the Gastroenterology team and the patient made it clear that she is not interested in any invasive procedure, in particular does not want esophagogastroduodenoscopy or colonoscopy. She was transfused 2 units of packed RBCs. Her lab work showed that she also has vitamin B12 deficiency. She was taking 1000 mcg/mL of cyanocobalamin intramuscular given once and she is refusing any further investigation. I had a lengthy discussion with her and the plan was to discontinue her apixaban. She has taken it for almost 6 months now for her DVT and that she obviously needs to follow with her primary care physician, Dr. Casiano. Meanwhile, we did start her on ferrous sulfate and ascorbic acid as well as cyanocobalamin 1000 mcg/mL intramuscular once every 4 weeks. PHYSICAL EXAMINATION: GENERAL: When I saw her this morning, she looked well and was clearly in no apparent respiratory distress, pale, but no jaundice, cyanosis or thyromegaly. No jugular venous distention or limb edema. VITAL SIGNS: Her heart rate was 74, blood pressure was 168/98, temperature was 97.9, respiratory rate was 18 and oxygen saturation was 94%. HEAD, EYES, EARS, NOSE AND THROAT: Showed normocephalic, atraumatic. NECK: Supple. HEART: Showed normal first and second heart sounds. No gallop or murmur. CHEST: Clear to auscultation. No crepitation or rhonchi. ABDOMEN: Distended, soft, nontender. NEUROLOGIC: She is awake, alert, responding appropriately. She does have right-sided hemiparesis with fixed flexion contraction of her right upper extremity. LABORATORY DATA: This morning showed a white cell count of 8000, hemoglobin 9.3, hematocrit 29, MCV 71 and platelet count 266,000. Serum sodium was 141, potassium 3.7, chloride 106, bicarbonate 26, anion gap of 9, BUN 20, creatinine 1, estimated GFR was 55 mL per minute. Her glucose was 108, calcium was 8.1. Total bilirubin, AST, ALT, alkaline phosphatase were normal. Total protein 6.1, albumin was 2.7. Her serum vitamin B12 was 277 pg/mL. Her serum iron was 13, TIBC was 295, iron saturation was 4 and serum ferritin was only 9. DISCHARGE MEDICATIONS: The patient was discharged home to continue on following medications: Ascorbic acid 500 mg twice a day, ferrous sulfate 325 mg twice a day, baby aspirin 81 mg once a day, carvedilol 12.5 mg twice a day, hydrocodone/APAP 5/325 one tablet every 6 hours, lisinopril 20 mg once a day, magnesium oxide 400 mg once a day, polyethylene glycol 17 g daily, Senna-S 1 capsule at bedtime, nystatin/triamcinolone cream applied topically as needed for skin breakdown. FINAL DISCHARGE DIAGNOSES: 1. Severe iron deficiency anemia without obvious source of bleeding. The patient received 2 units of packed RBCs. Her H and H have remained stable. 2. Vitamin B12 deficiency, anemia. 3. DVT for which she was on apixaban and has been on it for almost 6 months now. 4. The patient has multiple other medical problems including: A. Hypertension. B. Multiple cerebrovascular accidents. C. Congestive heart failure. D. Atrial fibrillation. E. History of deep vein thrombosis. ASHLEY CHEEK MD DR: ANTONIO/isela JOB#: [id number] / [id number]
[2019-11-14 11:44] VITALS: BP 167/88
--- NOTE | 2019-11-14 13:32 | NUR ---
Discharge Note: NASIM APPIAH [address] Discharge instructions and discharge home medications reviewed with Patient and a copy given. All questions have been answered and understanding verbalized. The following instructions and handouts were given: patient visit report, medication information, education. Discontinued lines and drains: peripheral IV, tip intact. Patient discharged to home with self care via private vehicle. Patient left unit awake, in stable condition, with all personal belongings.
== END 2019-11-14 12:30 | disposition home or self-care (01) | DRG 812 ==
LOC: 6 SOUTH 22:12
PROVIDERS: ADMIT Internal Medicine; ATTEND Internal Medicine
PROC: 30233N1 Transfusion of Nonautologous Red Blood Cells into Peripheral Vein, Percutaneous Approach (ICD-10-PCS; principal; 2019-11-13)
DX: D50.9 Iron deficiency anemia, unspecified (principal); K57.92 Diverticulitis of intestine, part unspecified, without perforation or abscess without bleeding; G81.91 Hemiplegia, unspecified affecting right dominant side; E53.8 Deficiency of other specified B group vitamins; G62.9 Polyneuropathy, unspecified; I11.0 Hypertensive heart disease with heart failure; I48.91 Unspecified atrial fibrillation; I50.9 Heart failure, unspecified; M19.90 Unspecified osteoarthritis, unspecified site; J44.9 Chronic obstructive pulmonary disease, unspecified; K59.00 Constipation, unspecified; Z79.01 Long term (current) use of anticoagulants; Z86.718 Personal history of other venous thrombosis and embolism; Z86.73 Personal history of transient ischemic attack (TIA), and cerebral infarction without residual deficits; Z87.442 Personal history of urinary calculi; Z87.891 Personal history of nicotine dependence; Z90.49 Acquired absence of other specified parts of digestive tract; Z90.710 Acquired absence of both cervix and uterus; Z88.8 Allergy status to other drugs, medicaments and biological substances; Z79.899 Other long term (current) drug therapy; Z98.51 Tubal ligation status
CPT/HCPCS: 36415; 74177; 80048; 80053; 82607; 82728; 83540; 83550; 85014; 85018; 85025; 85027; 86850; 86900; 86901; 86920; J3010; J3420; J7042; P9016; Q9966; Q9967; G0378